=== PATIENT | male | born 1940 | race American Indian/Alaskan Native ===

== ENCOUNTER 2020-05-17 16:08 | Inpatient (IN) | payer MEDICARE ==
[~2020-05-17 16:08] MED LIST: INSULIN REGULAR, HUMAN 100 UNITS/1 ML ONE
--- NOTE | 2020-05-17 16:43 | XRay Report ---
CHEST 1 VIEW 05/17/2020 4:15 PM INDICATION / CLINICAL INFORMATION: ams. COMPARISON: None available. FINDINGS: SUPPORT DEVICES: None. HEART / MEDIASTINUM: No significant abnormality. LUNGS / PLEURA: No significant pulmonary or pleural abnormality. No pneumothorax. ADDITIONAL FINDINGS: No significant additional findings. IMPRESSION: 1. No acute findings. Signer Name: Jone Morin MD Signed: 05/17/2020 4:38 PM Workstation Name: [id number]
[2020-05-17 16:57] LABS: Basophils % (Auto) 0.4 % (0.0-1.8); Eosinophils # (Auto) 0.2 K/mm3 (0.0-0.4); Eosinophils % (Auto) 3.3 % (0.0-4.3); Hematocrit 36.4 % (35.5-45.6); Hemoglobin 12.5 gm/dl (11.8-15.2); Lymphocytes % (Auto) 14.6 % (13.4-35.0); Mean Corpuscular HGB Conc 34 % (32-34); Mean Corpuscular Volume 99 fl (84-94); Monocytes # (Auto) 0.4 K/mm3 (0.0-0.8); Monocytes % (Auto) 6.1 % (0.0-7.3); Platelet Count 117 K/mm3 (140-440); Red Blood Count 3.67 M/mm3 (3.65-5.03); Red Cell Distribution Width 13.3 % (13.2-15.2)
[2020-05-17] MEDS ORDERED: SODIUM POLYSTYRENE 15 GM/60 ML ORAL LIQD PO ONE (18:24)
[2020-05-17] MEDS ORDERED: DEXTROSE 50% IN WATER (25GM) 50 ML SYRINGE IV ONE (18:24)
[2020-05-17] MEDS ORDERED: INSULIN REGULAR, HUMAN 100 UNIT/ML 3ML VIAL IV ONE (18:24)
[2020-05-17] MEDS ORDERED: SODIUM BICARB 8.4% 50 MEQ/50 ML SYRINGE IV ONE (18:24)
--- NOTE | 2020-05-17 18:57 | Emergency Department Report ---
ED Altered Mental Status HPI - General Chief Complaint: Altered Mental Status Stated Complaint: AMS Time Seen by Provider: 05/17/20 16:12 Source: patient, EMS Mode of arrival: Stretcher Limitations: Altered Mental Status - History of Present Illness Initial Comments: Patient is a 80-year-old F Ivorian male with a past medical history of dementia is coming from a correction with altered mental status. Paramedics state that staff states that he 'just was not acting right". They state that the correction staff did not give a depiction of his baseline or with exactly the change in the patient is. Patient is answering questions relatively appropriate. Moving all extremities and he is alert. - Related Data Allergies Allergy/AdvReac Type Severity Reaction Status Date / Time No Known Allergies Allergy Unverified 05/17/20 16:54 ED Review of Systems ROS: Stated complaint: AMS Other details as noted in HPI Comment: All other systems reviewed and negative ED Past Medical Hx - Past Medical History Hx Hypertension: Yes Hx CVA: Yes Hx GERD: Yes Hx Psychiatric Treatment: Yes (mood disorder) Hx Dementia: Yes Additional medical history: glaucoma, malignant neoplasm of colon - Social History Smoking Status: Unknown if ever smoked ED Physical Exam - General Limitations: Altered Mental Status General appearance: alert, in no apparent distress - Head Head exam: Present: atraumatic, normocephalic - Eye Eye exam: Present: normal appearance, PERRL, EOMI - ENT ENT exam: Present: mucous membranes moist - Neck Neck exam: Present: normal inspection - Respiratory Respiratory exam: Present: normal lung sounds bilaterally. Absent: respiratory distress, wheezes, rales, rhonchi - Cardiovascular Cardiovascular Exam: Present: regular rate, normal rhythm, normal heart sounds. Absent: systolic murmur, diastolic murmur, rubs, gallop - GI/Abdominal GI/Abdominal exam: Present: soft, normal bowel sounds. Absent: distended, tenderness, guarding, rebound - Rectal Rectal exam: Present: deferred - Extremities Exam Extremities exam: Present: normal inspection - Back Exam Back exam: Present: normal inspection - Neurological Exam Neurological exam: Present: alert, oriented X3 - Psychiatric Psychiatric exam: Present: normal affect, normal mood - Skin Skin exam: Present: warm, dry, intact, normal color. Absent: rash - Level of Consciousness 1a. Level of Consciousness: alert/keenly responsive - LOC Questions 1b. LOC Questions: answers both correctly - LOC Command 1c. LOC Commands: performs tasks correctly - Best Gaze 2. Best Gaze: normal - Visual 3. Visual: no visual loss - Facial Palsy 4. Facial Palsy: normal symmetrical movement - Motor Arm 5a. Motor Arm Left: no drift 5b. Motor Arm Right: no drift - Motor Leg 6a. Motor Leg Left: no drift 6b. Motor Leg Right: no drift - Limb Ataxia 7. Limb Ataxia: absent - Sensory 8. Sensory: normal - Best Language 9. Best Language: no aphasia - Dysarthria 10. Dysarthria: normal - Extinction and Inattention 11. Extinction/Inattention: no abnormality - Scoring Total Score: 0 Stroke Severity: No Stroke Symptoms ED Course Vital Signs 05/17/20 16:24 Temperature 97.8 F Pulse Rate 48 L Respiratory 18 Rate Blood Pressure 123/26 O2 Sat by Pulse 96 Oximetry - Lab Data Result diagrams: 05/17/20 16:19 05/17/20 17:26 Lab Results 05/17/20 05/17/20 05/17/20 Range/Units 16:19 16:19 17:26 WBC 6.6 (4.5-11.0) K/mm3 RBC 3.67 (3.65-5.03) M/mm3 Hgb 12.5 (11.8-15.2) gm/dl Hct 36.4 (35.5-45.6) % MCV 99 H (84-94) fl MCH 34 H (28-32) pg MCHC 34 (32-34) % RDW 13.3 (13.2-15.2) % Plt Count 117 L (140-440) K/mm3 Lymph % (Auto) 14.6 (13.4-35.0) % [place] % (Auto) 6.1 (0.0-7.3) % Eos % (Auto) 3.3 (0.0-4.3) % Baso % (Auto) 0.4 (0.0-1.8) % Lymph # (Auto) 1.0 L (1.2-5.4) K/mm3 [place] # (Auto) 0.4 (0.0-0.8) K/mm3 Eos # (Auto) 0.2 (0.0-0.4) K/mm3 Baso # (Auto) 0.0 (0.0-0.1) K/mm3 Seg Neutrophils % 75.6 H (40.0-70.0) % Seg Neutrophils # 5.0 (1.8-7.7) K/mm3 Sodium 141 (137-145) mmol/L Potassium 5.6 H 5.9 H (3.6-5.0) mmol/L Chloride 108.6 H (98-107) mmol/L Carbon Dioxide 22 (22-30) mmol/L Anion Gap 16 mmol/L BUN 30 H (9-20) mg/dL Creatinine 1.6 H (0.8-1.3) mg/dL Estimated GFR 51 ml/min BUN/Creatinine Ratio 19 % Glucose 85 (75-100) mg/dL Calcium 9.0 (8.4-10.2) mg/dL - Medical Decision Making Patient was noted to have hyperkalemia. This was treated. Does have some renal insufficiency present. Unknown what the patient's renal function baseline is. Patient will be admitted for observation. Critical care attestation.: If time is entered above; I have spent that time in minutes in the direct care of this critically ill patient, excluding procedure time. ED Disposition Clinical Impression: Hyperkalemia, Acute renal injury, Altered mental state Disposition: 09 OP ADMIT IP TO THIS HOSP Is pt being admited?: Yes Does the pt Need Aspirin: No Condition: Stable Time of Disposition: 18:56
[2020-05-17] MEDS ORDERED: MORPHINE 2 MG/1 ML INJ IV PRN (22:34)
[2020-05-17] MEDS ORDERED: ONDANSETRON 4 MG/2 ML INJ IV PRN (22:34)
[2020-05-17] MEDS ORDERED: ACETAMINOPHEN 325 MG TAB PO PRN (22:34)
[2020-05-17] MEDS ORDERED: METOCLOPRAMIDE 10 MG/2 ML INJ IV PRN ×2 (22:34→22:45)
[2020-05-17] MEDS ORDERED: CALCIUM GLUCONATE 2,000 MG in SODIUM CHLORIDE 0.9% 100 ML IV ONE (22:43)
--- NOTE | 2020-05-17 22:45 | History and Physical Report ---
History of Present Illness Date of examination: 05/17/20 Date of admission: 05/17/20 18:57 Chief complaint: Altered sensorium since a.m. History of present illness: 50-year-old male sent from [facility] for altered mental status. Patient had no fever at the time of admission. Patient is normally alert and oriented. Now confused. No shortness of breath present. Had a recent stroke - Past Medical History --Hypertension: Yes --CVA: Yes --GERD: Yes --Psychiatric Treatment: Yes (mood disorder) --Dementia: Yes Additional medical history: glaucoma, malignant neoplasm of colon - Social History Smoking Status: Unknown if ever smoked surgical history unavailable family history Htn Review of Systems ROS: Constitutional altered sensorium and fever HEENT no sore throat no post nasal drip no diplopia Neck no neck stiffness no lymph gland enlargement Chest and lungs no shortness of breath cough or wheezing CVS no chest pain no diaphoresis no palpitations GI no nausea no vomiting no diarrhea Genitourinary system no dysuria no flank pain Musculoskeletal system no muscle pains no joint pains BRICK HANDLER no syncope no seizures Skin no rash no itching Psychiatric no depression no homicidal or suicidal tendencies Hematologic no lymphedema or bruising Endocrine no polydipsia no polyuria no cold intolerance no heat intolerance Medications and Allergies Allergies Allergy/AdvReac Type Severity Reaction Status Date / Time No Known Allergies Allergy Verified 05/17/20 22:43 Exam - Constitutional Vitals: Temp Pulse Resp BP Pulse Ox 97.8 F 48 L 18 123/26 96 05/17/20 16:24 05/17/20 16:24 05/17/20 16:24 05/17/20 16:24 05/17/20 16:24 General appearance: Present: mild distress, well-nourished - EENT Eyes: Present: PERRL ENT: hearing intact, clear oral mucosa - Neck Neck: Present: supple, normal ROM - Respiratory Respiratory effort: normal Respiratory: bilateral: CTA - Cardiovascular Heart rate: 78 Rhythm: regular Heart Sounds: Present: S1 & S2. Absent: rub, click - Extremities Extremities: no ischemia, pulses intact, pulses symmetrical, No edema Peripheral Pulses: within normal limits - Abdominal General gastrointestinal: Present: soft, non-tender, non-distended, normal bowel sounds Male genitourinary: Present: normal - Integumentary Integumentary: Present: clear, warm, dry - Musculoskeletal Musculoskeletal: gait normal, strength equal bilaterally - Psychiatric Psychiatric: cooperative, other (Altered sensorium) - Neurologic Neurologic: CNII-XII intact, moves all extremities - Allied Health Allied health notes reviewed: nursing, case management Results - Labs CBC & Chem 7: 05/18/20 04:56 05/18/20 04:00 Labs: Laboratory Last Values WBC 6.6 K/mm3 (4.5-11.0) 05/17/20 16:19 RBC 3.67 M/mm3 (3.65-5.03) 05/17/20 16:19 Hgb 12.5 gm/dl (11.8-15.2) 05/17/20 16:19 Hct 36.4 % (35.5-45.6) 05/17/20 16:19 MCV 99 fl (84-94) H 05/17/20 16:19 MCH 34 pg (28-32) H 05/17/20 16:19 MCHC 34 % (32-34) 05/17/20 16:19 RDW 13.3 % (13.2-15.2) 05/17/20 16:19 Plt Count 117 K/mm3 (140-440) L 05/17/20 16:19 Lymph % (Auto) 14.6 % (13.4-35.0) 05/17/20 16:19 [place] % (Auto) 6.1 % (0.0-7.3) 05/17/20 16:19 Eos % (Auto) 3.3 % (0.0-4.3) 05/17/20 16:19 Baso % (Auto) 0.4 % (0.0-1.8) 05/17/20 16:19 Lymph # (Auto) 1.0 K/mm3 (1.2-5.4) L 05/17/20 16:19 [place] # (Auto) 0.4 K/mm3 (0.0-0.8) 05/17/20 16:19 Eos # (Auto) 0.2 K/mm3 (0.0-0.4) 05/17/20 16:19 Baso # (Auto) 0.0 K/mm3 (0.0-0.1) 05/17/20 16:19 Seg Neutrophils % 75.6 % (40.0-70.0) H 05/17/20 16:19 Seg Neutrophils # 5.0 K/mm3 (1.8-7.7) 05/17/20 16:19 Sodium 141 mmol/L (137-145) 05/17/20 16:19 Potassium 5.9 mmol/L (3.6-5.0) H 05/17/20 17:26 Chloride 108.6 mmol/L (98-107) H 05/17/20 16:19 Carbon Dioxide 22 mmol/L (22-30) 05/17/20 16:19 Anion Gap 16 mmol/L 05/17/20 16:19 BUN 30 mg/dL (9-20) H 05/17/20 16:19 Creatinine 1.6 mg/dL (0.8-1.3) H 05/17/20 16:19 Estimated GFR 51 ml/min 05/17/20 16:19 BUN/Creatinine Ratio 19 % 05/17/20 16:19 Glucose 85 mg/dL (75-100) 05/17/20 16:19 Calcium 9.0 mg/dL (8.4-10.2) 05/17/20 16:19 Short CBC 05/17/20 05/18/20 Range/Units 16:19 04:56 WBC 6.6 5.6 (4.5-11.0) K/mm3 Hgb 12.5 11.9 (11.8-15.2) gm/dl Hct 36.4 34.3 L (35.5-45.6) % Plt Count 117 L 104 L (140-440) K/mm3 BMP 05/17/20 05/17/20 05/18/20 16:19 17:26 04:00 Sodium 141 144 Potassium 5.6 H 5.9 H 4.9 Chloride 108.6 H 112.0 H Carbon Dioxide 22 21 L BUN 30 H 28 H Creatinine 1.6 H 1.2 Glucose 85 79 Calcium 9.0 9.4 Liver Function 05/18/20 Range/Units 04:00 Total Bilirubin 0.60 (0.1-1.2) mg/dL AST 36 (5-40) units/L ALT 23 (7-56) units/L Alkaline Phosphatase 98 (35-129) units/L Albumin 3.8 L (3.9-5) g/dL Assessment and Plan Advance Directives: Yes (Full code) VTE prophylaxis?: Chemical Plan of care discussed with patient/family: Yes - Patient Problems (1) Acute encephalopathy Current Visit: Yes Status: Acute Plan to address problem: Etiology unclear IV ceftriaxone empirically IV fluids (2) Hyperkalemia Current Visit: Yes Status: Acute Plan to address problem: Hyperkalemia treated with Kayexalate calcium gluconate sodium bicarbonate and insulin with D50 W Recheck potassium level (3) YANET (acute kidney injury) Current Visit: Yes Status: Acute Plan to address problem: Creatinine of 1.6 IV fluids for now (4) DVT prophylaxis Current Visit: Yes Status: Acute (5) Debility, unspecified Current Visit: Yes Status: Acute Plan to address problem: PT/OT (6) DVT prophylaxis Current Visit: Yes Status: Acute Plan to address problem: On heparin GI prophylaxis
[2020-05-17] MEDS ORDERED: D5W/0.9% NACL 1,000 ML IV SCH (23:00)
[2020-05-17] MEDS ORDERED: FAMOTIDINE 20 MG TAB PO SCH (23:00)
[2020-05-18] MEDS: FAMOTIDINE 10 MG TAB PO SCH ×3 (02:22→21:14)
[2020-05-18 05:59] LABS: Basophils % (Auto) 0.4 % (0.0-1.8); Eosinophils # (Auto) 0.2 K/mm3 (0.0-0.4); Eosinophils % (Auto) 3.2 % (0.0-4.3); Hematocrit 34.3 % (35.5-45.6); Hemoglobin 11.9 gm/dl (11.8-15.2); Lymphocytes # (Auto) 1.2 K/mm3 (1.2-5.4); Lymphocytes % (Auto) 20.8 % (13.4-35.0); Mean Corpuscular HGB Conc 35 % (32-34); Mean Corpuscular Volume 98 fl (84-94); Monocytes # (Auto) 0.4 K/mm3 (0.0-0.8); Monocytes % (Auto) 7.9 % (0.0-7.3); Platelet Count 104 K/mm3 (140-440); Red Blood Count 3.49 M/mm3 (3.65-5.03)
[2020-05-18 06:26] LABS: Alanine Aminotransferase 23 units/L (7-56); Albumin 3.8 g/dL (3.9-5); BUN/Creatinine Ratio 23; Blood Urea Nitrogen 28 mg/dL (9-20); Calcium 9.4 mg/dL (8.4-10.2); Hemolysis Index 8
[2020-05-18] MEDS: cefTRIAXone/NS 2 GM/100 ML 2 GM/100 ML BAG IV SCH (08:11)
[2020-05-18] MEDS: D5W/0.45% NACL 1,000 ML IV SCH (09:09)
--- NOTE | 2020-05-18 11:36 | Progress Note ---
Assessment and Plan Assessment and plan: Patient Problems (1) Acute encephalopathy Current Visit: Yes Status: Acute Plan to address problem: Etiology unclear IV ceftriaxone empirically IV fluids Check CT head COVID-19 (2) Hyperkalemia Current Visit: Yes Status: Acute Plan to address problem: Hyperkalemia treated with Kayexalate calcium gluconate sodium bicarbonate and insulin with D50 W Recheck potassium level (3) YANET (acute kidney injury) Current Visit: Yes Status: Acute Plan to address problem: Creatinine of 1.6 IV fluids for now (4) DVT prophylaxis Current Visit: Yes Status: Acute (5) Debility, unspecified Current Visit: Yes Status: Acute Plan to address problem: PT/OT (6) DVT prophylaxis Current Visit: Yes Status: Acute Plan to address problem: On heparin GI prophylaxis History Interval history: Patient seen and examined at bedside this morning Patient is confused Baseline is unknown. Suspect underlying dementia Patient is on antibiotics for UTI. Hospitalist Physical - Physical exam Narrative exam: VITAL SIGNS: Reviewed. GENERAL: Awake but confused HEAD: No signs of head trauma. EYES: Pupils are equal. Extraocular motions intact. EARS: Hearing grossly intact. MOUTH: Oropharynx is normal. NECK: No adenopathy, no JVD. CHEST: Chest with diminished breath sounds bilaterally. No wheezes, rales, or rhonchi. CARDIAC: Regular rate and rhythm. S1 and S2, without murmurs, gallops, or rubs. VASCULAR: No Edema. Peripheral pulses normal and equal in all extremities. ABDOMEN: Soft, non tender and non distended. No rebound or guarding, and no masses palpated. Bowel Sounds normal. MUSCULOSKELETAL: Good range of motion of all major joints. Extremities without clubbing, cyanosis or edema. NEUROLOGIC EXAM: Alert and oriented x1 PSYCHIATRIC: Stable mood SKIN: No obvious lesions - Constitutional Vitals: Temp Pulse Resp BP Pulse Ox 98.5 F 83 18 130/59 99 05/18/20 00:53 05/18/20 01:22 05/18/20 00:53 05/18/20 01:22 05/18/20 00:53 Results - Labs CBC & Chem 7: 05/18/20 04:56 05/18/20 04:00 Labs: Laboratory Last Values WBC 5.6 K/mm3 (4.5-11.0) 05/18/20 04:56 RBC 3.49 M/mm3 (3.65-5.03) L 05/18/20 04:56 Hgb 11.9 gm/dl (11.8-15.2) 05/18/20 04:56 Hct 34.3 % (35.5-45.6) L 05/18/20 04:56 MCV 98 fl (84-94) H 05/18/20 04:56 MCH 34 pg (28-32) H 05/18/20 04:56 MCHC 35 % (32-34) H 05/18/20 04:56 RDW 13.0 % (13.2-15.2) L 05/18/20 04:56 Plt Count 104 K/mm3 (140-440) L 05/18/20 04:56 Lymph % (Auto) 20.8 % (13.4-35.0) 05/18/20 04:56 [place] % (Auto) 7.9 % (0.0-7.3) H 05/18/20 04:56 Eos % (Auto) 3.2 % (0.0-4.3) 05/18/20 04:56 Baso % (Auto) 0.4 % (0.0-1.8) 05/18/20 04:56 Lymph # (Auto) 1.2 K/mm3 (1.2-5.4) 05/18/20 04:56 [place] # (Auto) 0.4 K/mm3 (0.0-0.8) 05/18/20 04:56 Eos # (Auto) 0.2 K/mm3 (0.0-0.4) 05/18/20 04:56 Baso # (Auto) 0.0 K/mm3 (0.0-0.1) 05/18/20 04:56 Seg Neutrophils % 67.7 % (40.0-70.0) 05/18/20 04:56 Seg Neutrophils # 3.8 K/mm3 (1.8-7.7) 05/18/20 04:56 Sodium 144 mmol/L (137-145) 05/18/20 04:00 Potassium 4.9 mmol/L (3.6-5.0) 05/18/20 04:00 Chloride 112.0 mmol/L (98-107) H 05/18/20 04:00 Carbon Dioxide 21 mmol/L (22-30) L 05/18/20 04:00 Anion Gap 16 mmol/L 05/18/20 04:00 BUN 28 mg/dL (9-20) H 05/18/20 04:00 Creatinine 1.2 mg/dL (0.8-1.3) 05/18/20 04:00 Estimated GFR > 60 ml/min 05/18/20 04:00 BUN/Creatinine Ratio 23 % 05/18/20 04:00 Glucose 79 mg/dL (75-100) 05/18/20 04:00 Hemoglobin A1c 4.6 % (4-6) 05/17/20 16:19 Calcium 9.4 mg/dL (8.4-10.2) 05/18/20 04:00 Total Bilirubin 0.60 mg/dL (0.1-1.2) 05/18/20 04:00 AST 36 units/L (5-40) 05/18/20 04:00 ALT 23 units/L (7-56) 05/18/20 04:00 Alkaline Phosphatase 98 units/L (35-129) 05/18/20 04:00 Total Protein 6.5 g/dL (6.3-8.2) 05/18/20 04:00 Albumin 3.8 g/dL (3.9-5) L 05/18/20 04:00 Albumin/Globulin Ratio 1.4 % 05/18/20 04:00 Procalcitonin < 0.05 ng/mL (<0.15) 05/18/20 08:00 Patel/IV: Voiding Method Toilet IV Catheter Type [Right INT / Saline Lock Forearm] Active Medications - Current Medications Current Medications: Generic Name Dose Route Start Last Admin Trade Name Freq PRN Reason Stop Dose Admin Acetaminophen 650 mg 05/17/20 22:34 Tylenol PO Q4H PRN Pain MILD(1-3)/Fever >100.5/MONTALVO Famotidine 10 mg 05/17/20 23:00 05/18/20 09:08 Pepcid PO 10 mg BID WYATT Administration Dextrose/Sodium Chloride 1,000 mls @ 125 mls/hr 05/18/20 07:35 05/18/20 09:09 D5/0.45ns IV 125 mls/hr DIRECT WYATT Administration Ceftriaxone Sodium 2 gm in 100 mls @ 200 mls/hr 05/18/20 08:00 05/18/20 08:11 Rocephin/Ns 2 Gm/100 Ml IV 200 mls/hr Q24HR WYATT Administration Protocol Metoclopramide HCl 5 mg 05/17/20 22:45 Reglan IV Q6H PRN Nausea And Vomiting Morphine Sulfate 2 mg 05/17/20 22:34 Morphine IV Q4H PRN Pain, Moderate (4-6) Ondansetron HCl 4 mg 05/17/20 22:34 Zofran IV Q8H PRN Nausea And Vomiting Sodium Chloride 10 ml 05/18/20 10:00 05/18/20 09:09 Sodium Chloride Flush Syringe 10 Ml IV 10 ml BID WYATT Administration Sodium Chloride 10 ml 05/17/20 22:34 Sodium Chloride Flush Syringe 10 Ml IV PRN PRN LINE FLUSH
[2020-05-18 13:33] LABS: Bilirubin,Urine NEG (Negative); Blood,Urine NEG (Negative); Color,Urine Yellow (Yellow); Mucus,Urine FEW /HPF; Protein,Urine <15 mg/dL mg/dL (Negative); RBC,Urine < 1.0 /HPF (0.0-6.0); Urobilinogen,Urine < 2.0 mg/dL (<2.0)
--- NOTE | 2020-05-18 14:13 | Cat Scan Report ---
CT HEAD WITHOUT CONTRAST INDICATION / CLINICAL INFORMATION: Altered mental status. TECHNIQUE: All CT scans at this location are performed using CT dose reduction for ALARA by means of automated e xposure control. COMPARISON: None available. FINDINGS: HEMORRHAGE: No evidence of intracranial hemorrhage or extra-axial fluid collection. EXTRA-AXIAL SPACES: Cortical sulci and sylvian fissures are enlarged reflecting a degree of parenchym al volume loss which is within normal limits for the patient's age of 80 years. Basilar cisterns have an unremarkable appearance. VENTRICULAR SYSTEM: The third and lateral ventricles are enlarged reflecting presence of age related parenchymal volume loss. CEREBRAL PARENCHYMA: Periventricular and deep white matter lucency is observed. This is probably seco ndary to microvascular ischemic change. There is no indication of recent infarction. No areas of ence phalomalacia are identified. MIDLINE SHIFT OR HERNIATION: There is no mass effect. CEREBELLUM / BRAINSTEM: Brainstem has an unremarkable appearance. Age related cerebellar atrophy is n oted. MIDLINE STRUCTURES:Pituitary gland has an unremarkable appearance. No abnormalities are seen in the p ineal region. INTRACRANIAL VESSELS:Calcified atherosclerotic plaque is present along the course of the cavernous se gments of both internal carotid arteries. Similar findings are seen at the distal vertebral arteries. ORBITS: visualized portions of the orbits have an unremarkable appearance. SOFT TISSUES of HEAD: Soft tissue swelling is seen over the right forehead. This could represent a sc alp hematoma. Is there history of head injury CALVARIUM: Evaluation of bone windows reveals no abnormalities. PARANASAL SINUSES / MASTOID AIR CELLS: There is opacification of the right frontal sinus. Mucosal dis ease is present within the left sphenoid sinus and within several ethmoid air cells bilaterally. Mast oid air cells and middle ear cavities are normally pneumatized. IMPRESSION: 1. Age-related parenchymal atrophy and microvascular ischemic change. 2. Inflammatory changes in the paranasal sinuses as noted above. Signer Name: Kevin Sanders MD Signed: 05/18/2020 2:09 PM Workstation Name: Isabella Oliver
[2020-05-19] MEDS: D5W/0.45% NACL 1,000 ML IV SCH ×3 (05:04→22:07)
[2020-05-19] MEDS: cefTRIAXone/NS 2 GM/100 ML 2 GM/100 ML BAG IV SCH (10:57)
[2020-05-19] MEDS: FAMOTIDINE 10 MG TAB PO SCH ×2 (10:57→21:55)
[2020-05-19 13:01] LABS: Basophils % (Auto) 0.6 % (0.0-1.8); Eosinophils # (Auto) 0.1 K/mm3 (0.0-0.4); Eosinophils % (Auto) 2.5 % (0.0-4.3); Hemoglobin 11.5 gm/dl (11.8-15.2); Lymphocytes % (Auto) 18.9 % (13.4-35.0); Mean Corpuscular HGB Conc 34 % (32-34); Mean Corpuscular Volume 100 fl (84-94); Monocytes # (Auto) 0.5 K/mm3 (0.0-0.8); Monocytes % (Auto) 9.1 % (0.0-7.3); Platelet Count 100 K/mm3 (140-440); Red Blood Count 3.39 M/mm3 (3.65-5.03); Red Cell Distribution Width 12.8 % (13.2-15.2)
--- NOTE | 2020-05-19 13:03 | Progress Note ---
Assessment and Plan Assessment and plan: Patient Problems (1) Acute encephalopathy Current Visit: Yes Status: Acute Plan to address problem: Etiology unclear IV ceftriaxone empirically IV fluids CT head - negative COVID-19 - negative (2) Hyperkalemia Current Visit: Yes Status: Acute Plan to address problem: Resolved (3) YANET (acute kidney injury) Current Visit: Yes Status: Acute Plan to address problem: Improved (4) Debility, unspecified Current Visit: Yes Status: Acute Plan to address problem: PT/OT (5) DVT prophylaxis Current Visit: Yes Status: Acute Plan to address problem: On heparin GI prophylaxis History Interval history: Patient seen and examined at bedside this morning He has dementia and his baseline is not known Patient is on antibiotics for UTI. Hospitalist Physical - Physical exam Narrative exam: VITAL SIGNS: Reviewed. GENERAL: Awake HEAD: No signs of head trauma. EYES: Pupils are equal. Extraocular motions intact. EARS: Hearing grossly intact. MOUTH: Oropharynx is normal. NECK: No adenopathy, no JVD. CHEST: Chest with diminished breath sounds bilaterally. No wheezes, rales, or rhonchi. CARDIAC: Regular rate and rhythm. S1 and S2, without murmurs, gallops, or rubs. VASCULAR: No Edema. Peripheral pulses normal and equal in all extremities. ABDOMEN: Soft, non tender and non distended. No rebound or guarding, and no masses palpated. Bowel Sounds normal. MUSCULOSKELETAL: Good range of motion of all major joints. Extremities without clubbing, cyanosis or edema. NEUROLOGIC EXAM: Alert and oriented x1 PSYCHIATRIC: Stable mood SKIN: No obvious lesions - Constitutional Vitals: Temp Pulse Resp BP Pulse Ox 98.6 F 65 16 125/46 98 05/19/20 05:38 05/19/20 05:38 05/19/20 05:38 05/19/20 05:38 05/19/20 05:38 Results - Labs CBC & Chem 7: 05/18/20 04:56 05/18/20 04:00 Labs: Laboratory Last Values WBC 5.6 K/mm3 (4.5-11.0) 05/18/20 04:56 RBC 3.49 M/mm3 (3.65-5.03) L 05/18/20 04:56 Hgb 11.9 gm/dl (11.8-15.2) 05/18/20 04:56 Hct 34.3 % (35.5-45.6) L 05/18/20 04:56 MCV 98 fl (84-94) H 05/18/20 04:56 MCH 34 pg (28-32) H 05/18/20 04:56 MCHC 35 % (32-34) H 05/18/20 04:56 RDW 13.0 % (13.2-15.2) L 05/18/20 04:56 Plt Count 104 K/mm3 (140-440) L 05/18/20 04:56 Lymph % (Auto) 20.8 % (13.4-35.0) 05/18/20 04:56 [place] % (Auto) 7.9 % (0.0-7.3) H 05/18/20 04:56 Eos % (Auto) 3.2 % (0.0-4.3) 05/18/20 04:56 Baso % (Auto) 0.4 % (0.0-1.8) 05/18/20 04:56 Lymph # (Auto) 1.2 K/mm3 (1.2-5.4) 05/18/20 04:56 [place] # (Auto) 0.4 K/mm3 (0.0-0.8) 05/18/20 04:56 Eos # (Auto) 0.2 K/mm3 (0.0-0.4) 05/18/20 04:56 Baso # (Auto) 0.0 K/mm3 (0.0-0.1) 05/18/20 04:56 Seg Neutrophils % 67.7 % (40.0-70.0) 05/18/20 04:56 Seg Neutrophils # 3.8 K/mm3 (1.8-7.7) 05/18/20 04:56 Sodium 144 mmol/L (137-145) 05/18/20 04:00 Potassium 4.9 mmol/L (3.6-5.0) 05/18/20 04:00 Chloride 112.0 mmol/L (98-107) H 05/18/20 04:00 Carbon Dioxide 21 mmol/L (22-30) L 05/18/20 04:00 Anion Gap 16 mmol/L 05/18/20 04:00 BUN 28 mg/dL (9-20) H 05/18/20 04:00 Creatinine 1.2 mg/dL (0.8-1.3) 05/18/20 04:00 Estimated GFR > 60 ml/min 05/18/20 04:00 BUN/Creatinine Ratio 23 % 05/18/20 04:00 Glucose 79 mg/dL (75-100) 05/18/20 04:00 Hemoglobin A1c 4.6 % (4-6) 05/17/20 16:19 Calcium 9.4 mg/dL (8.4-10.2) 05/18/20 04:00 Total Bilirubin 0.60 mg/dL (0.1-1.2) 05/18/20 04:00 AST 36 units/L (5-40) 05/18/20 04:00 ALT 23 units/L (7-56) 05/18/20 04:00 Alkaline Phosphatase 98 units/L (35-129) 05/18/20 04:00 Total Protein 6.5 g/dL (6.3-8.2) 05/18/20 04:00 Albumin 3.8 g/dL (3.9-5) L 05/18/20 04:00 Albumin/Globulin Ratio 1.4 % 05/18/20 04:00 Procalcitonin < 0.05 ng/mL (<0.15) 05/18/20 08:00 Urine Color Yellow (Yellow) 05/18/20 Unknown Urine Turbidity Clear (Clear) 05/18/20 Unknown Urine pH 5.0 (5.0-7.0) 05/18/20 Unknown Ur Specific [place] 1.014 (1.003-1.030) 05/18/20 Unknown Urine Protein <15 mg/dl mg/dL (Negative) 05/18/20 Unknown Urine Glucose (UA) Neg mg/dL (Negative) 05/18/20 Unknown Urine Ketones Neg mg/dL (Negative) 05/18/20 Unknown Urine Blood Neg (Negative) 05/18/20 Unknown Urine Nitrite Neg (Negative) 05/18/20 Unknown Urine Bilirubin Neg (Negative) 05/18/20 Unknown Urine Urobilinogen < 2.0 mg/dL (<2.0) 05/18/20 Unknown Ur Leukocyte Esterase Neg (Negative) 05/18/20 Unknown Urine WBC (Auto) 1.0 /HPF (0.0-6.0) 05/18/20 Unknown Urine RBC (Auto) < 1.0 /HPF (0.0-6.0) 05/18/20 Unknown U Epithel Cells (Auto) < 1.0 /HPF (0-13.0) 05/18/20 Unknown Urine Mucus Few /HPF 05/18/20 Unknown Coronavirus (PCR) Negative (Negative) 05/18/20 11:00 Patel/IV: Voiding Method Toilet IV Catheter Type [Left Forearm Peripheral IV ] IV Catheter Type [Right Wrist] Peripheral IV IV Catheter Type [Right INT / Saline Lock Forearm] Active Medications - Current Medications Current Medications: Generic Name Dose Route Start Last Admin Trade Name Freq PRN Reason Stop Dose Admin Acetaminophen 650 mg 05/17/20 22:34 Tylenol PO Q4H PRN Pain MILD(1-3)/Fever >100.5/MONTALVO Famotidine 10 mg 05/17/20 23:00 05/19/20 10:57 Pepcid PO 10 mg BID WYATT Administration Dextrose/Sodium Chloride 1,000 mls @ 125 mls/hr 05/18/20 07:35 05/19/20 05:04 D5/0.45ns IV 125 mls/hr DIRECT WYATT Administration Ceftriaxone Sodium 2 gm in 100 mls @ 200 mls/hr 05/18/20 08:00 05/19/20 10:57 Rocephin/Ns 2 Gm/100 Ml IV 200 mls/hr Q24HR WYATT Administration Protocol Metoclopramide HCl 5 mg 05/17/20 22:45 Reglan IV Q6H PRN Nausea And Vomiting Morphine Sulfate 2 mg 05/17/20 22:34 Morphine IV Q4H PRN Pain, Moderate (4-6) Ondansetron HCl 4 mg 05/17/20 22:34 Zofran IV Q8H PRN Nausea And Vomiting Sodium Chloride 10 ml 05/18/20 10:00 05/19/20 10:57 Sodium Chloride Flush Syringe 10 Ml IV 10 ml BID WYATT Administration Sodium Chloride 10 ml 05/17/20 22:34 Sodium Chloride Flush Syringe 10 Ml IV PRN PRN LINE FLUSH
[2020-05-19 13:32] LABS: Alanine Aminotransferase 22 units/L (7-56); Albumin 3.6 g/dL (3.9-5); BUN/Creatinine Ratio 14; Blood Urea Nitrogen 14 mg/dL (9-20); Calcium 8.9 mg/dL (8.4-10.2); Hemolysis Index 17
[2020-05-19] MEDS: busPIRone 10 MG TAB PO SCH (21:53)
[2020-05-19] MEDS: DONEPEZIL 10 MG TAB PO SCH (21:54)
[2020-05-19] MEDS: METOPROLOL TARTRATE 25 MG TAB PO SCH (21:54)
[2020-05-20 05:45] LABS: Basophils % (Auto) 0.3 % (0.0-1.8); Eosinophils # (Auto) 0.2 K/mm3 (0.0-0.4); Eosinophils % (Auto) 2.5 % (0.0-4.3); Hematocrit 34.7 % (35.5-45.6); Hemoglobin 11.7 gm/dl (11.8-15.2); Lymphocytes # (Auto) 1.2 K/mm3 (1.2-5.4); Lymphocytes % (Auto) 19.9 % (13.4-35.0); Mean Corpuscular HGB Conc 34 % (32-34); Mean Corpuscular Volume 100 fl (84-94); Monocytes # (Auto) 0.7 K/mm3 (0.0-0.8); Monocytes % (Auto) 10.5 % (0.0-7.3); Platelet Count 103 K/mm3 (140-440); Red Blood Count 3.46 M/mm3 (3.65-5.03); Red Cell Distribution Width 12.9 % (13.2-15.2)
[2020-05-20 06:02] LABS: Alanine Aminotransferase 26 units/L (7-56); Albumin 3.6 g/dL (3.9-5); BUN/Creatinine Ratio 9; Blood Urea Nitrogen 9 mg/dL (9-20); Hemolysis Index 59
[2020-05-20] MEDS: D5W/0.45% NACL 1,000 ML IV SCH ×3 (08:10→23:52)
[2020-05-20] MEDS: CITALOPRAM 10 MG TAB PO SCH (09:18)
[2020-05-20] MEDS: METOPROLOL TARTRATE 25 MG TAB PO SCH ×2 (09:18→21:07)
[2020-05-20] MEDS: cefTRIAXone/NS 2 GM/100 ML 2 GM/100 ML BAG IV SCH (09:18)
[2020-05-20] MEDS: FAMOTIDINE 10 MG TAB PO SCH ×2 (09:19→21:08)
[2020-05-20] MEDS: ASPIRIN EC 81 MG TAB PO SCH (09:19)
[2020-05-20] MEDS: busPIRone 10 MG TAB PO SCH ×2 (09:19→21:07)
--- NOTE | 2020-05-20 11:19 | Progress Note ---
Assessment and Plan Assessment and plan: 80-year-old male with a medical history of dementia admitted with altered mental status. As per admission notes, patient was noted to be acting differently compared with baseline while in the [facility]. No reported fever or flulike illness. Due to concern for possible infection, patient was brought to the hospital for further evaluation Here in the ER, patient was started on IV antibiotic for possible UTI. CT head negative 05/19. Patient is still on IV antibiotics. He is alert and oriented x1. He is able to say time by looking at the clock however. Discussed case with patient's RN at the [facility], who states that patient usually is able to have a normal conversation and is alert and oriented x2. Medication reviewed showed patient is not on any narcotics while in the [facility]. He has not had any temperature spike here. COVID-19 test performed was negative during this ad mission. His vital signs remained stable. Try to speak with brother on the phone but could not get him so I left a voice message. Still awaiting callback. 05/20. Patient has slight spike in temperature more than 100.1 Fahrenheit. Urinalysis showed no organisms. Procalcitonin was also negative. At this time I do not suspect a bacterial infection. Need to rule out viral illness at this time. Patient needs an LP-ordered LP and CSF analysis. Neurology to review as patient will need an MRI of the brain. His TSH, folate and vitamin B12 levels are all within normal limits. Patient Problems (1) Acute metabolic encephalopathy Current Visit: Yes Status: Acute Plan to address problem: CT head - negative COVID-19 - negative Need to rule out encephalitis. LP ordered. CSF analysis will be sent. Neurology consulted. Needs to have an MRI of the brain (2) Hyperkalemia Current Visit: Yes Status: Acute Plan to address problem: Resolved (3) YANET (acute kidney injury) Current Visit: Yes Status: Acute Plan to address problem: Improved (4) Debility, unspecified Current Visit: Yes Status: Acute Plan to address problem: PT/OT pending (5) Dementia with behavioral disturbance Current Visit: Yes Status: Acute Plan to address problem: Started on low-dose Zyprexa Psychiatry to see (5) DVT prophylaxis Current Visit: Yes Status: Acute Plan to address problem: On heparin GI prophylaxis History Interval history: Patient seen and examined at bedside this morning He has dementia. Spoke with RN at the nursing facility who states that patient usually alert and oriented x2 and is able to take a shower and have quite a normal conversation. He occasionally tells time when he looks at the clock. He has no complaints today but he is still confused. Temperature spike noted He is on IV antibiotics and urine culture is negative. Procalcitonin was also negative. At this time, will discontinue IV antibiotics Patient scheduled for LP to rule out any underlying viral illness/encephalitis. COVID-19 test already negative Hospitalist Physical - Physical exam Narrative exam: VITAL SIGNS: Reviewed. GENERAL: Awake HEAD: No signs of head trauma. EYES: Pupils are equal. Extraocular motions intact. EARS: Hearing grossly intact. MOUTH: Oropharynx is normal. NECK: No adenopathy, no JVD. CHEST: Chest with diminished breath sounds bilaterally. No wheezes, rales, or rhonchi. CARDIAC: Regular rate and rhythm. S1 and S2, without murmurs, gallops, or rubs. VASCULAR: No Edema. Peripheral pulses normal and equal in all extremities. ABDOMEN: Soft, non tender and non distended. No rebound or guarding, and no masses palpated. Bowel Sounds normal. MUSCULOSKELETAL: Good range of motion of all major joints. Extremities without clubbing, cyanosis or edema. NEUROLOGIC EXAM: Alert and oriented x1. Has slight confusion PSYCHIATRIC: Stable mood SKIN: No obvious lesions - Constitutional Vitals: Temp Pulse Resp BP Pulse Ox 100.1 F H 95 H 20 134/68 98 05/20/20 03:56 05/20/20 03:56 05/20/20 03:56 05/20/20 03:56 05/20/20 03:56 Results - Labs CBC & Chem 7: 05/20/20 03:38 05/20/20 03:38 Labs: Laboratory Last Values WBC 6.3 K/mm3 (4.5-11.0) 05/20/20 03:38 RBC 3.46 M/mm3 (3.65-5.03) L 05/20/20 03:38 Hgb 11.7 gm/dl (11.8-15.2) L 05/20/20 03:38 Hct 34.7 % (35.5-45.6) L 05/20/20 03:38 MCV 100 fl (84-94) H 05/20/20 03:38 MCH 34 pg (28-32) H 05/20/20 03:38 MCHC 34 % (32-34) 05/20/20 03:38 RDW 12.9 % (13.2-15.2) L 05/20/20 03:38 Plt Count 103 K/mm3 (140-440) L 05/20/20 03:38 Lymph % (Auto) 19.9 % (13.4-35.0) 05/20/20 03:38 [place] % (Auto) 10.5 % (0.0-7.3) H 05/20/20 03:38 Eos % (Auto) 2.5 % (0.0-4.3) 05/20/20 03:38 Baso % (Auto) 0.3 % (0.0-1.8) 05/20/20 03:38 Lymph # (Auto) 1.2 K/mm3 (1.2-5.4) 05/20/20 03:38 [place] # (Auto) 0.7 K/mm3 (0.0-0.8) 05/20/20 03:38 Eos # (Auto) 0.2 K/mm3 (0.0-0.4) 05/20/20 03:38 Baso # (Auto) 0.0 K/mm3 (0.0-0.1) 05/20/20 03:38 Seg Neutrophils % 66.8 % (40.0-70.0) 05/20/20 03:38 Seg Neutrophils # 4.2 K/mm3 (1.8-7.7) 05/20/20 03:38 Sodium 144 mmol/L (137-145) 05/20/20 03:38 Potassium 4.6 mmol/L (3.6-5.0) 05/20/20 03:38 Chloride 109.2 mmol/L (98-107) H 05/20/20 03:38 Carbon Dioxide 24 mmol/L (22-30) 05/20/20 03:38 Anion Gap 15 mmol/L 05/20/20 03:38 BUN 9 mg/dL (9-20) 05/20/20 03:38 Creatinine 1.0 mg/dL (0.8-1.3) 05/20/20 03:38 Estimated GFR > 60 ml/min 05/20/20 03:38 BUN/Creatinine Ratio 9 % 05/20/20 03:38 Glucose 100 mg/dL (75-100) 05/20/20 03:38 Hemoglobin A1c 4.6 % (4-6) 05/17/20 16:19 Calcium 9.0 mg/dL (8.4-10.2) 05/20/20 03:38 Total Bilirubin 0.40 mg/dL (0.1-1.2) 05/20/20 03:38 AST 85 units/L (5-40) H 05/20/20 03:38 ALT 26 units/L (7-56) 05/20/20 03:38 Alkaline Phosphatase 95 units/L (35-129) 05/20/20 03:38 Total Protein 6.7 g/dL (6.3-8.2) 05/20/20 03:38 Albumin 3.6 g/dL (3.9-5) L 05/20/20 03:38 Albumin/Globulin Ratio 1.2 % 05/20/20 03:38 Vitamin B12 331.4 pg/mL (211-911) 05/19/20 12:27 Folate 12.77 ng/mL (7.3-26.0) 05/19/20 12:27 Procalcitonin < 0.05 ng/mL (<0.15) 05/18/20 08:00 TSH 1.530 mlU/mL (0.270-4.200) 05/19/20 12:27 Urine Color Yellow (Yellow) 05/18/20 Unknown Urine Turbidity Clear (Clear) 05/18/20 Unknown Urine pH 5.0 (5.0-7.0) 05/18/20 Unknown Ur Specific [employer] 1.014 (1.003-1.030) 05/18/20 Unknown Urine Protein <15 mg/dl mg/dL (Negative) 05/18/20 Unknown Urine Glucose (UA) Neg mg/dL (Negative) 05/18/20 Unknown Urine Ketones Neg mg/dL (Negative) 05/18/20 Unknown Urine Blood Neg (Negative) 05/18/20 Unknown Urine Nitrite Neg (Negative) 05/18/20 Unknown Urine Bilirubin Neg (Negative) 05/18/20 Unknown Urine Urobilinogen < 2.0 mg/dL (<2.0) 05/18/20 Unknown Ur Leukocyte Esterase Neg (Negative) 05/18/20 Unknown Urine WBC (Auto) 1.0 /HPF (0.0-6.0) 05/18/20 Unknown Urine RBC (Auto) < 1.0 /HPF (0.0-6.0) 05/18/20 Unknown U Epithel Cells (Auto) < 1.0 /HPF (0-13.0) 05/18/20 Unknown Urine Mucus Few /HPF 05/18/20 Unknown Coronavirus (PCR) Negative (Negative) 05/18/20 11:00 Microbiology: Microbiology 05/18/20 Unknown Urine,[place] Urine Culture - Preliminary [place]/IV: Voiding Method Incontinent IV Catheter Type [Left Forearm Peripheral IV ] IV Catheter Type [Right Wrist] Peripheral IV IV Catheter Type [Right Peripheral IV Forearm] Active Medications - Current Medications Current Medications: Generic Name Dose Route Start Last Admin Trade Name Freq PRN Reason Stop Dose Admin Acetaminophen 650 mg 05/17/20 22:34 Tylenol PO Q4H PRN Pain MILD(1-3)/Fever >100.5/MONTALVO Aspirin 81 mg 05/20/20 10:00 05/20/20 09:19 Halfprin Ec PO 81 mg QDAY WYATT Administration Buspirone HCl 10 mg 05/19/20 22:00 05/20/20 09:19 Buspar PO 10 mg BID WYATT Administration Citalopram Hydrobromide 5 mg 05/20/20 10:00 05/20/20 09:18 Celexa PO 5 mg QDAY WYATT Administration Donepezil HCl 10 mg 05/19/20 22:00 05/19/20 21:54 Aricept PO 10 mg QHS WYATT Administration Enoxaparin Sodium 40 mg 05/21/20 22:00 Enoxaparin SUB-Q QDAY WYATT Protocol Famotidine 10 mg 05/17/20 23:00 05/20/20 09:19 Pepcid PO 10 mg BID WYATT Administration Dextrose/Sodium Chloride 1,000 mls @ 125 mls/hr 05/18/20 07:35 05/20/20 08:10 D5/0.45ns IV 125 mls/hr DIRECT WYATT Administration Ceftriaxone Sodium 2 gm in 100 mls @ 200 mls/hr 05/18/20 08:00 05/20/20 09:18 Rocephin/Ns 2 Gm/100 Ml IV 200 mls/hr Q24HR WYATT Administration Protocol Melatonin 5 mg 05/19/20 18:28 Melatonin PO QHS PRN Sleep Metoclopramide HCl 5 mg 05/17/20 22:45 Reglan IV Q6H PRN Nausea And Vomiting Metoprolol Tartrate 25 mg 05/19/20 22:00 05/20/20 09:18 Metoprolol PO 25 mg BID WYATT Administration Morphine Sulfate 2 mg 05/17/20 22:34 Morphine IV Q4H PRN Pain, Moderate (4-6) Olanzapine 2.5 mg 05/19/20 22:00 05/19/20 21:54 Zyprexa PO 2.5 mg QHS WYATT Administration Ondansetron HCl 4 mg 05/17/20 22:34 Zofran IV Q8H PRN Nausea And Vomiting Sodium Chloride 10 ml 05/18/20 10:00 05/19/20 21:56 Sodium Chloride Flush Syringe 10 Ml IV 10 ml BID WYATT Administration Sodium Chloride 10 ml 05/17/20 22:34 05/20/20 09:20 Sodium Chloride Flush Syringe 10 Ml IV 10 ml PRN PRN Administration LINE FLUSH
--- NOTE | 2020-05-20 13:26 | Consultation ---
History of Present Illness - Reason for Consult Consult date: 05/20/20 Reason for consult: agitation - Chief Complaint Chief complaint: Altered sensorium since a.m. - History of Present Psychiatric Illness Sonu Farnsworth is a 80y/o male patient who was admitted for altered mental status. I attempted to interview the patient today. The nurse at bedside states the patient has been agitated, confused and trying to get out of bed. The patient is in restraints. PAST PSYCHIATRIC HISTORY: Unable to obtain PAST MEDICAL HISTORY: Unable to obtain Family Psychiatric History: Unable to obtain SOCIAL HISTORY Unable to obtain REVIEW OF SYSTEMS Unable to obtain MENTAL STATUS EXAMINATION Unable to obtain Assessment and Plan (1) Dementia with Behavioral Disturbance Current Visit: Yes Status: Acute TREATMENT PLAN d/c olanzapine Start Risperidone 0.25mg po BID Sitter: Defer to primary Medical: Per primary Disposition: TBD Will follow. Thank you for this consult. Medications and Allergies Allergies Allergy/AdvReac Type Severity Reaction Status Date / Time No Known Allergies Allergy Verified 05/17/20 22:43 Home Medications Medication Instructions Recorded Confirmed Last Taken Type Aspirin 81 mg PO DAILY 05/19/20 05/19/20 Unknown History Citalopram [Celexa] 0.5 mg PO DAILY 05/19/20 05/19/20 Unknown History Combigan 0.2%-0.5% Eye Drops 1 drop OU BID 05/19/20 05/19/20 Unknown History Cozaar 25 mg PO DAILY 05/19/20 05/19/20 Unknown History Latanoprost 0.005% 1 drop OU QHS 05/19/20 05/19/20 Unknown History Lopressor 37.5 mg PO BID 05/19/20 05/19/20 Unknown History Melatonin 3MG TAB 3 mg PO QHS 05/19/20 05/19/20 Unknown History Milk of Magnesia 30 ml PO DAILY PRN 05/19/20 05/19/20 Unknown History Motrin 800 MG tab 800 mg PO Q4H PRN 05/19/20 05/19/20 Unknown History Tylenol 500 mg PO BID 05/19/20 05/19/20 Unknown History busPIRone 10 mg PO BID 05/19/20 05/19/20 Unknown History donepeziL 10 mg PO DAILY 05/19/20 05/19/20 Unknown History traMADoL 50 mg PO Q6H PRN 05/19/20 05/19/20 Unknown History Active Meds: Active Medications Acetaminophen (Tylenol) 650 mg PO Q4H PRN PRN Reason: Pain MILD(1-3)/Fever >100.5/MONTALVO Aspirin (Halfprin Ec) 81 mg PO QDAY [facility] Last Admin: 05/20/20 09:19 Dose: 81 mg Documented by: Buspirone HCl (Buspar) 10 mg PO BID [facility] Last Admin: 05/20/20 09:19 Dose: 10 mg Documented by: Citalopram Hydrobromide (Celexa) 5 mg PO QDAY [facility] Last Admin: 05/20/20 09:18 Dose: 5 mg Documented by: Donepezil HCl (Aricept) 10 mg PO QHS [facility] Last Admin: 05/19/20 21:54 Dose: 10 mg Documented by: Enoxaparin Sodium (Enoxaparin) 40 mg SUB-Q QDAY@1000 [facility] Famotidine (Pepcid) 10 mg PO BID [facility] Last Admin: 05/20/20 09:19 Dose: 10 mg Documented by: Dextrose/Sodium Chloride (D5/0.45ns) 1,000 mls @ 125 mls/hr IV DIRECT [facility] Last Admin: 05/20/20 08:10 Dose: 125 mls/hr Documented by: Melatonin (Melatonin) 5 mg PO QHS PRN PRN Reason: Sleep Metoclopramide HCl (Reglan) 5 mg IV Q6H PRN PRN Reason: Nausea And Vomiting Metoprolol Tartrate (Metoprolol) 25 mg PO BID [facility] Last Admin: 05/20/20 09:18 Dose: 25 mg Documented by: Morphine Sulfate (Morphine) 2 mg IV Q4H PRN PRN Reason: Pain, Moderate (4-6) Olanzapine (Zyprexa) 2.5 mg PO QHS [facility] Last Admin: 05/19/20 21:54 Dose: 2.5 mg Documented by: Ondansetron HCl (Zofran) 4 mg IV Q8H PRN PRN Reason: Nausea And Vomiting Sodium Chloride (Sodium Chloride Flush Syringe 10 Ml) 10 ml IV BID [facility] Last Admin: 05/19/20 21:56 Dose: 10 ml Documented by: Sodium Chloride (Sodium Chloride Flush Syringe 10 Ml) 10 ml IV PRN PRN PRN Reason: LINE FLUSH Last Admin: 05/20/20 09:20 Dose: 10 ml Documented by: Mental Status Exam - Vital signs Last Vital Signs Temp 100.1 F H 05/20/20 03:56 Pulse 95 H 05/20/20 03:56 Resp 20 05/20/20 03:56 BP 134/68 05/20/20 03:56 Pulse Ox 98 05/20/20 03:56 Results Result Diagrams: 05/20/20 03:38 05/20/20 03:38 Abnormal lab results 05/19/20 05/20/20 05/20/20 Range/Units 12:27 03:38 03:38 RBC 3.46 L (3.65-5.03) M/mm3 Hgb 11.7 L (11.8-15.2) gm/dl Hct 34.7 L (35.5-45.6) % MCV 100 H (84-94) fl MCH 34 H (28-32) pg RDW 12.9 L (13.2-15.2) % Plt Count 103 L (140-440) K/mm3 [place] % (Auto) 10.5 H (0.0-7.3) % Chloride 111.0 H 109.2 H (98-107) mmol/L Carbon Dioxide 18 L (22-30) mmol/L Glucose 126 H (75-100) mg/dL AST 55 H 85 H (5-40) units/L Albumin 3.6 L 3.6 L (3.9-5) g/dL All other labs normal.
[2020-05-20] MEDS: ENOXAPARIN 40 MG/0.4 ML INJ SUB-Q SCH (13:53)
[2020-05-20] MEDS ORDERED: HEPARIN 5,000 UNIT/1 ML VIAL SUB-Q SCH (14:00)
[2020-05-20] MEDS: risperiDONE 0.25 MG TAB PO SCH (21:07)
[2020-05-20] MEDS: DONEPEZIL 10 MG TAB PO SCH (21:08)
[2020-05-21 04:54] LABS: Hematocrit 31.9 % (35.5-45.6); Hemoglobin 10.9 gm/dl (11.8-15.2); Mean Corpuscular HGB Conc 34 % (32-34); Mean Corpuscular Volume 99 fl (84-94); Red Blood Count 3.24 M/mm3 (3.65-5.03); Red Cell Distribution Width 12.9 % (13.2-15.2)
[2020-05-21 04:55] LABS: Platelet Count 96 K/mm3 (140-440)
[2020-05-21 05:03] LABS: INR 1.11 (0.87-1.13); Partial Thromboplastin Time 33.8 Sec. (24.2-36.6)
[2020-05-21] MEDS: D5W/0.45% NACL 1,000 ML IV SCH ×2 (05:20→21:37)
[2020-05-21] MEDS: risperiDONE 0.25 MG TAB PO SCH ×3 (08:58→21:36)
[2020-05-21] MEDS: FAMOTIDINE 10 MG TAB PO SCH ×3 (08:58→21:36)
[2020-05-21] MEDS: METOPROLOL TARTRATE 25 MG TAB PO SCH ×3 (08:58→21:36)
[2020-05-21] MEDS: CITALOPRAM 10 MG TAB PO SCH (08:59)
[2020-05-21] MEDS: busPIRone 10 MG TAB PO SCH ×2 (09:00→21:36)
--- NOTE | 2020-05-21 11:13 | Progress Note ---
Subjective - Reason for Consult Consult date: 05/21/20 Reason for consult: Aggression - Chief Complaint Chief complaint: The patient is lying in bed. He is confused and his speech is nonsensical. He did ask me how I was doing. The upper half of the patient's bed is covered in emesis. Nursing staff notified. The patient is in restraints. REVIEW OF SYSTEMS Unable to obtain MENTAL STATUS EXAMINATION Unable to obtain Assessment and Plan (1) Dementia with Behavioral Disturbance Current Visit: Yes Status: Acute TREATMENT PLAN Continue Risperidone 0.25mg po BID Sitter: Defer to primary Medical: Per primary Disposition: TBD Will follow. Thank you for this consult. Mental Status Exam - Vital signs Last Vital Signs Temp 98.3 F 05/21/20 03:51 Pulse 78 05/20/20 22:21 Resp 18 05/21/20 03:51 BP 142/68 05/21/20 03:51 Pulse Ox 95 05/20/20 22:21
--- NOTE | 2020-05-21 12:16 | Progress Note ---
Assessment and Plan Assessment and plan: 80-year-old male with a medical history of dementia admitted with altered mental status. As per admission notes, patient was noted to be acting differently compared with baseline while in the residential. No reported fever or flulike illness. Due to concern for possible infection, patient was brought to the hospital for further evaluation Here in the ER, patient was started on IV antibiotic for possible UTI. CT head negative 05/19. Patient is still on IV antibiotics. He is alert and oriented x1. He is able to say time by looking at the clock however. Discussed case with patient's RN at the residential, who states that patient usually is able to have a normal conversation and is alert and oriented x2. Medication reviewed showed patient is not on any narcotics while in the residential. He has not had any temperature spike here. COVID-19 test performed was negative during this ad mission. His vital signs remained stable. Try to speak with brother on the phone but could not get him so I left a voice message. Still awaiting callback. 05/20. Spoke with RN at the nursing facility who states that patient usually alert and oriented x2 and is able to take a shower and have quite a normal conversation. He occasionally tells time when he looks at the clock. Patient has slight spike in temperature more than 100.1 Fahrenheit. Urinalysis showed no organisms. Procalcitonin was also negative. At this time I do not suspect a bacterial infection so will discontinue IV antibiotics. COVID-19 test already negative. Need to rule out viral illness at this time. Patient needs an LP- ordered LP and CSF analysis. Neurology to review as patient will need an MRI of the brain. His TSH, folate and vitamin B12 levels are all within normal limits. 05/21. He is awake, alert and oriented x1. Plan for LP today. Neurology to see. Patient Problems (1) Acute metabolic encephalopathy Current Visit: Yes Status: Acute Plan to address problem: CT head - negative COVID-19 - negative Need to rule out encephalitis. LP ordered. CSF analysis will be sent. Neurology consulted. Needs to have an MRI of the brain (2) Hyperkalemia Current Visit: Yes Status: Acute Plan to address problem: Resolved (3) YANET (acute kidney injury) Current Visit: Yes Status: Acute Plan to address problem: Improved (4) Debility, unspecified Current Visit: Yes Status: Acute Plan to address problem: PT/OT pending (5) Dementia with behavioral disturbance Current Visit: Yes Status: Acute Plan to address problem: Risperidone twice daily Psychiatry following (5) DVT prophylaxis Current Visit: Yes Status: Acute Plan to address problem: On heparin and GI prophylaxis History Interval history: Patient seen and examined at bedside this morning He will get LP today. Neurology evaluation Hospitalist Physical - Constitutional Vitals: Temp Pulse Resp BP Pulse Ox 98.3 F 78 18 142/68 95 05/21/20 03:51 05/20/20 22:21 05/21/20 03:51 05/21/20 03:51 05/20/20 22:21 General appearance: Present: mild distress, well-nourished Results - Labs CBC & Chem 7: 05/21/20 04:14 05/20/20 03:38 Labs: Laboratory Last Values WBC 5.2 K/mm3 (4.5-11.0) 05/21/20 04:14 RBC 3.24 M/mm3 (3.65-5.03) L 05/21/20 04:14 Hgb 10.9 gm/dl (11.8-15.2) L 05/21/20 04:14 Hct 31.9 % (35.5-45.6) L 05/21/20 04:14 MCV 99 fl (84-94) H 05/21/20 04:14 MCH 34 pg (28-32) H 05/21/20 04:14 MCHC 34 % (32-34) 05/21/20 04:14 RDW 12.9 % (13.2-15.2) L 05/21/20 04:14 Plt Count 96 K/mm3 (140-440) L 05/21/20 04:14 Lymph % (Auto) 19.9 % (13.4-35.0) 05/20/20 03:38 [place] % (Auto) 10.5 % (0.0-7.3) H 05/20/20 03:38 Eos % (Auto) 2.5 % (0.0-4.3) 05/20/20 03:38 Baso % (Auto) 0.3 % (0.0-1.8) 05/20/20 03:38 Lymph # (Auto) 1.2 K/mm3 (1.2-5.4) 05/20/20 03:38 [place] # (Auto) 0.7 K/mm3 (0.0-0.8) 05/20/20 03:38 Eos # (Auto) 0.2 K/mm3 (0.0-0.4) 05/20/20 03:38 Baso # (Auto) 0.0 K/mm3 (0.0-0.1) 05/20/20 03:38 Seg Neutrophils % 66.8 % (40.0-70.0) 05/20/20 03:38 Seg Neutrophils # 4.2 K/mm3 (1.8-7.7) 05/20/20 03:38 PT 14.2 Sec. (12.2-14.9) 05/21/20 04:14 INR 1.11 (0.87-1.13) 05/21/20 04:14 APTT 33.8 Sec. (24.2-36.6) 05/21/20 04:14 Sodium 144 mmol/L (137-145) 05/20/20 03:38 Potassium 4.6 mmol/L (3.6-5.0) 05/20/20 03:38 Chloride 109.2 mmol/L (98-107) H 05/20/20 03:38 Carbon Dioxide 24 mmol/L (22-30) 05/20/20 03:38 Anion Gap 15 mmol/L 05/20/20 03:38 BUN 9 mg/dL (9-20) 05/20/20 03:38 Creatinine 1.0 mg/dL (0.8-1.3) 05/20/20 03:38 Estimated GFR > 60 ml/min 05/20/20 03:38 BUN/Creatinine Ratio 9 % 05/20/20 03:38 Glucose 100 mg/dL (75-100) 05/20/20 03:38 Hemoglobin A1c 4.6 % (4-6) 05/17/20 16:19 Calcium 9.0 mg/dL (8.4-10.2) 05/20/20 03:38 Total Bilirubin 0.40 mg/dL (0.1-1.2) 05/20/20 03:38 AST 85 units/L (5-40) H 05/20/20 03:38 ALT 26 units/L (7-56) 05/20/20 03:38 Alkaline Phosphatase 95 units/L (35-129) 05/20/20 03:38 Total Protein 6.7 g/dL (6.3-8.2) 05/20/20 03:38 Albumin 3.6 g/dL (3.9-5) L 05/20/20 03:38 Albumin/Globulin Ratio 1.2 % 05/20/20 03:38 Vitamin B12 331.4 pg/mL (211-911) 05/19/20 12:27 Folate 12.77 ng/mL (7.3-26.0) 05/19/20 12:27 Procalcitonin < 0.05 ng/mL (<0.15) 05/18/20 08:00 TSH 1.530 mlU/mL (0.270-4.200) 05/19/20 12:27 Urine Color Yellow (Yellow) 05/18/20 Unknown Urine Turbidity Clear (Clear) 05/18/20 Unknown Urine pH 5.0 (5.0-7.0) 05/18/20 Unknown Ur Specific [place] 1.014 (1.003-1.030) 05/18/20 Unknown Urine Protein <15 mg/dl mg/dL (Negative) 05/18/20 Unknown Urine Glucose (UA) Neg mg/dL (Negative) 05/18/20 Unknown Urine Ketones Neg mg/dL (Negative) 05/18/20 Unknown Urine Blood Neg (Negative) 05/18/20 Unknown Urine Nitrite Neg (Negative) 05/18/20 Unknown Urine Bilirubin Neg (Negative) 05/18/20 Unknown Urine Urobilinogen < 2.0 mg/dL (<2.0) 05/18/20 Unknown Ur Leukocyte Esterase Neg (Negative) 05/18/20 Unknown Urine WBC (Auto) 1.0 /HPF (0.0-6.0) 05/18/20 Unknown Urine RBC (Auto) < 1.0 /HPF (0.0-6.0) 05/18/20 Unknown U Epithel Cells (Auto) < 1.0 /HPF (0-13.0) 05/18/20 Unknown Urine Mucus Few /HPF 05/18/20 Unknown Coronavirus (PCR) Negative (Negative) 05/18/20 11:00 Microbiology: Microbiology 05/18/20 Unknown Urine,[place] Urine Culture - Preliminary Pat[place]/IV: Voiding Method Condom Catheter IV Catheter Type [Left Forearm Peripheral IV ] IV Catheter Type [Right Wrist] Peripheral IV IV Catheter Type [Right Peripheral IV Forearm] Active Medications - Current Medications Current Medications: Generic Name Dose Route Start Last Admin Trade Name Freq PRN Reason Stop Dose Admin Acetaminophen 650 mg 05/17/20 22:34 Tylenol PO Q4H PRN Pain MILD(1-3)/Fever >100.5/MONTALVO Aspirin 81 mg 05/20/20 10:00 05/20/20 09:19 Halfprin Ec PO 81 mg QDAY WYATT Administration Buspirone HCl 10 mg 05/19/20 22:00 05/21/20 09:00 Buspar PO 10 mg BID WYATT Administration Citalopram Hydrobromide 5 mg 05/20/20 10:00 05/21/20 08:59 Celexa PO 5 mg QDAY WYATT Administration Donepezil HCl 10 mg 05/19/20 22:00 05/20/20 21:08 Aricept PO 10 mg QHS WYATT Administration Enoxaparin Sodium 40 mg 05/20/20 12:00 05/20/20 13:53 Enoxaparin SUB-Q 40 mg QDAY@1000 WYATT Administration Famotidine 10 mg 05/17/20 23:00 05/21/20 08:58 Pepcid PO 10 mg BID WYATT Administration Dextrose/Sodium Chloride 1,000 mls @ 125 mls/hr 05/18/20 07:35 05/21/20 05:20 D5/0.45ns IV 125 mls/hr DIRECT WYATT Administration Melatonin 5 mg 05/19/20 18:28 Melatonin PO QHS PRN Sleep Metoclopramide HCl 5 mg 05/17/20 22:45 05/21/20 10:15 Reglan IV 5 mg Q6H PRN Administration Nausea And Vomiting Metoprolol Tartrate 25 mg 05/19/20 22:00 05/21/20 08:58 Metoprolol PO 25 mg BID WYATT Administration Morphine Sulfate 2 mg 05/17/20 22:34 Morphine IV Q4H PRN Pain, Moderate (4-6) Ondansetron HCl 4 mg 05/17/20 22:34 05/21/20 05:20 Zofran IV 4 mg Q8H PRN Administration Nausea And Vomiting Risperidone 0.25 mg 05/20/20 22:00 05/21/20 08:58 Risperdal PO 0.25 mg BID WYATT Administration Sodium Chloride 10 ml 05/18/20 10:00 05/21/20 09:00 Sodium Chloride Flush Syringe 10 Ml IV 10 ml BID WYATT Administration Sodium Chloride 10 ml 05/17/20 22:34 05/20/20 09:20 Sodium Chloride Flush Syringe 10 Ml IV 10 ml PRN PRN Administration LINE FLUSH
[2020-05-21] MEDS: ASPIRIN EC 81 MG TAB PO SCH (14:29)
--- NOTE | 2020-05-21 17:12 | Consultation ---
History of Present Illness Consult date: 05/21/20 Reason for Consult: change in mental status History of present illness: This is a comprehensive neurological consultation on Mr. Sonu Bean who is a very pleasant 80-year-old gentleman admitted with the symptoms of agitation, change in mental status. Patient has advanced dementia and therefore cannot provide any detailed history. This information has been obtained from his current chart. It was also reported that he may have had urinary tract infection. He was also evaluated by psychiatrist who reported that patient's dementia is associated with behavioral changes. Currently patient is on restraint with the mittens in his both hands. He does not know where he is as well as he does not move right leg. History is very limited. Past History Past Medical History: other (dementia) Past Surgical History: Other (unable to obtain) Social history: other (unable to obtain) Family history: other (unable to obtain) Medications and Allergies Allergies Allergy/AdvReac Type Severity Reaction Status Date / Time No Known Allergies Allergy Verified 05/17/20 22:43 Home Medications Medication Instructions Recorded Confirmed Last Taken Type Aspirin 81 mg PO DAILY 05/19/20 05/19/20 Unknown History Citalopram [Celexa] 0.5 mg PO DAILY 05/19/20 05/19/20 Unknown History Combigan 0.2%-0.5% Eye Drops 1 drop OU BID 05/19/20 05/19/20 Unknown History Cozaar 25 mg PO DAILY 05/19/20 05/19/20 Unknown History Latanoprost 0.005% 1 drop OU QHS 05/19/20 05/19/20 Unknown History Lopressor 37.5 mg PO BID 05/19/20 05/19/20 Unknown History Melatonin 3MG TAB 3 mg PO QHS 05/19/20 05/19/20 Unknown History Milk of Magnesia 30 ml PO DAILY PRN 05/19/20 05/19/20 Unknown History Motrin 800 MG tab 800 mg PO Q4H PRN 05/19/20 05/19/20 Unknown History Tylenol 500 mg PO BID 05/19/20 05/19/20 Unknown History busPIRone 10 mg PO BID 05/19/20 05/19/20 Unknown History donepeziL 10 mg PO DAILY 05/19/20 05/19/20 Unknown History traMADoL 50 mg PO Q6H PRN 05/19/20 05/19/20 Unknown History Active Meds: Active Medications Acetaminophen (Tylenol) 650 mg PO Q4H PRN PRN Reason: Pain MILD(1-3)/Fever >100.5/MONTALVO Aspirin (Halfprin Ec) 81 mg PO QDAY [facility] Last Admin: 05/21/20 14:29 Dose: Not Given Documented by: Buspirone HCl (Buspar) 10 mg PO BID [facility] Last Admin: 05/21/20 09:00 Dose: 10 mg Documented by: Citalopram Hydrobromide (Celexa) 5 mg PO QDAY [facility] Last Admin: 05/21/20 08:59 Dose: 5 mg Documented by: Donepezil HCl (Aricept) 10 mg PO QHS [facility] Last Admin: 05/20/20 21:08 Dose: 10 mg Documented by: Enoxaparin Sodium (Enoxaparin) 40 mg SUB-Q QDAY@1000 [facility] Last Admin: 05/20/20 13:53 Dose: 40 mg Documented by: Famotidine (Pepcid) 10 mg PO BID [facility] Last Admin: 05/21/20 08:58 Dose: 10 mg Documented by: Dextrose/Sodium Chloride (D5/0.45ns) 1,000 mls @ 125 mls/hr IV DIRECT [facility] Last Admin: 05/21/20 05:20 Dose: 125 mls/hr Documented by: Melatonin (Melatonin) 5 mg PO QHS PRN PRN Reason: Sleep Metoclopramide HCl (Reglan) 5 mg IV Q6H PRN PRN Reason: Nausea And Vomiting Last Admin: 05/21/20 10:15 Dose: 5 mg Documented by: Metoprolol Tartrate (Metoprolol) 25 mg PO BID [facility] Last Admin: 05/21/20 08:58 Dose: 25 mg Documented by: Morphine Sulfate (Morphine) 2 mg IV Q4H PRN PRN Reason: Pain, Moderate (4-6) Ondansetron HCl (Zofran) 4 mg IV Q8H PRN PRN Reason: Nausea And Vomiting Last Admin: 05/21/20 05:20 Dose: 4 mg Documented by: Risperidone (Risperdal) 0.25 mg PO BID [facility] Last Admin: 05/21/20 08:58 Dose: 0.25 mg Documented by: Sodium Chloride (Sodium Chloride Flush Syringe 10 Ml) 10 ml IV BID WYATT Last Admin: 05/21/20 09:00 Dose: 10 ml Documented by: Sodium Chloride (Sodium Chloride Flush Syringe 10 Ml) 10 ml IV PRN PRN PRN Reason: LINE FLUSH Last Admin: 05/20/20 09:20 Dose: 10 ml Documented by: Review of Systems ROS unobtainable: due to mental status Physical Examination - Vital Signs Vital Signs: Vital Signs Temp Pulse Resp BP Pulse Ox 97.8 F 48 L 18 123/26 96 05/17/20 16:24 05/17/20 16:24 05/17/20 16:24 05/17/20 16:24 05/17/20 16:24 - Physical Exam Narrative exam: Limited examinations Patient at times communicate but does not know where he is, today's date, month, and year. He thinks that he is at home. Speech he does speak few words Cranial nerve examinations Limited Pupils are reacting EOMI Face looks symmetrical Other cranial nerves are difficult to examine Motor: He does wiggle his both hand fingers as well as able to move the left leg but does not move the right leg as well The rest of the neuro exam is difficult to examine - Constitutional General appearance: comfortable - EENT EENT: Present: ATNC, PERRL, hearing intact - Respiratory Respiratory: Present: chest non-tender - Cardiovascular Cardiovascular: Present: regular rate Extremities: Present: no peripheral edema bilatateraly - Gastrointestinal Gastrointestinal: Present: soft - Integumentary Integumentary: Present: normal Results - Laboratory Findings CBC and BMP: 05/21/20 04:14 05/20/20 03:38 Abnormal Lab Findings: Abnormal Labs 05/17/20 05/17/20 05/17/20 16:19 16:19 17:26 RBC Hgb Hct MCV 99 H MCH 34 H MCHC RDW Plt Count 117 L [place] % (Auto) Lymph # (Auto) 1.0 L Seg Neutrophils % 75.6 H Potassium 5.6 H 5.9 H Chloride 108.6 H Carbon Dioxide BUN 30 H Creatinine 1.6 H Glucose AST Albumin 05/18/20 05/18/20 05/19/20 04:00 04:56 12:27 RBC 3.49 L 3.39 L Hgb 11.5 L Hct 34.3 L 34.0 L MCV 98 H 100 H MCH 34 H 34 H MCHC 35 H RDW 13.0 L 12.8 L Plt Count 104 L 100 L [place] % (Auto) 7.9 H 9.1 H Lymph # (Auto) 1.0 L Seg Neutrophils % Potassium Chloride 112.0 H Carbon Dioxide 21 L BUN 28 H Creatinine Glucose AST Albumin 3.8 L 05/19/20 05/20/20 05/20/20 12:27 03:38 03:38 RBC 3.46 L Hgb 11.7 L Hct 34.7 L MCV 100 H MCH 34 H MCHC RDW 12.9 L Plt Count 103 L [place] % (Auto) 10.5 H Lymph # (Auto) Seg Neutrophils % Potassium Chloride 111.0 H 109.2 H Carbon Dioxide 18 L BUN Creatinine Glucose 126 H AST 55 H 85 H Albumin 3.6 L 3.6 L 05/21/20 04:14 RBC 3.24 L Hgb 10.9 L Hct 31.9 L MCV 99 H MCH 34 H MCHC RDW 12.9 L Plt Count 96 L [place] % (Auto) Lymph # (Auto) Seg Neutrophils % Potassium Chloride Carbon Dioxide BUN Creatinine Glucose AST Albumin - Diagnostic Findings Additional findings: CT scan of the brain is unremarkable Assessment and Plan - Patient Problems (1) Alzheimer's dementia with behavioral disturbance Current Visit: Yes Status: Acute Plan to address problem: Plan: 1) Continue care as prescribed by psychiatrist 2) Continue Aricept as prescribed 3) Please order an EEG to make sure he does not have subclinical seizures (2) Acute encephalopathy Current Visit: Yes Status: Acute Plan to address problem: Plan: 1) Likely multifactorial 2) Please obtain an MRI of brain to see if there is any new stroke if possible 3) Treat underlying infection and electrolyte imbalance as per primary care physician's advice 4) poor prognosis Thank you very much for allowing us in the care of your patient. Please call us if you have any questions. Otilia Lin MD Tele-neurologist [phone]
[2020-05-21] MEDS: ENOXAPARIN 40 MG/0.4 ML INJ SUB-Q SCH (17:20)
[2020-05-21] MEDS: DONEPEZIL 10 MG TAB PO SCH (21:36)
[2020-05-21] MEDS ORDERED: ENOXAPARIN 30 MG/0.3 ML INJ SUB-Q SCH (22:00)
[2020-05-22] MEDS: D5W/0.45% NACL 1,000 ML IV SCH ×3 (06:08→23:52)
[2020-05-22] MEDS: risperiDONE 0.25 MG TAB PO SCH ×2 (10:04→21:58)
[2020-05-22] MEDS: FAMOTIDINE 10 MG TAB PO SCH ×2 (10:04→21:57)
[2020-05-22] MEDS: ENOXAPARIN 40 MG/0.4 ML INJ SUB-Q SCH (10:04)
[2020-05-22] MEDS: busPIRone 10 MG TAB PO SCH ×2 (10:04→22:00)
[2020-05-22] MEDS: CITALOPRAM 10 MG TAB PO SCH (10:05)
[2020-05-22] MEDS: METOPROLOL TARTRATE 25 MG TAB PO SCH ×2 (10:05→21:59)
[2020-05-22] MEDS: ASPIRIN EC 81 MG TAB PO SCH (10:10)
--- NOTE | 2020-05-22 10:19 | Progress Note ---
Subjective - Reason for Consult Consult date: 05/22/20 Reason for consult: agitation - Chief Complaint Chief complaint: The patient is lying in bed. He is confused and his speech is nonsensical. He does reply "fine" when I ask him how he's doing. The patient then starts talking incoherently. He is unable to give any insight into what is going on with him. He is in restraints. REVIEW OF SYSTEMS Unable to obtain MENTAL STATUS EXAMINATION Unable to obtain Assessment and Plan (1) Dementia with Behavioral Disturbance Current Visit: Yes Status: Acute TREATMENT PLAN Sitter: Defer to primary Medical: Per primary Disposition: Do not recommend acute psychiatric inpatient treatment at this [facility]. It is my clinical opinion the patient would not benefit from psychiatric services. He has complex medical conditions that override his psychiatric need at this time. Will sign off. Please place a new consult if needed in the future. Thank you for this consult. Mental Status Exam - Vital signs Last Vital Signs Temp 98.4 F 05/22/20 04:34 Pulse 60 05/22/20 10:05 Resp 15 05/22/20 04:34 BP 121/46 05/22/20 10:05 Pulse Ox 98 05/22/20 04:34
--- NOTE | 2020-05-22 15:13 | Progress Note ---
Assessment and Plan Assessment and plan: (1) Acute metabolic encephalopathy Current Visit: Yes Status: Acute Plan to address problem: CT head - negative COVID-19 - negative Need to rule out encephalitis. LP ordered. CSF analysis will be sent. Neurology consulted. Needs to have an MRI of the brain (2) Hyperkalemia Current Visit: Yes Status: Acute Plan to address problem: Resolved (3) YANET (acute kidney injury) Current Visit: Yes Status: Acute Plan to address problem: Improved (4) Debility, unspecified Current Visit: Yes Status: Acute Plan to address problem: PT/OT pending (5) Dementia with behavioral disturbance Current Visit: Yes Status: Acute Plan to address problem: Risperidone twice daily Psychiatry following (5) DVT prophylaxis Current Visit: Yes Status: Acute Plan to address problem: On heparin and GI prophylaxis 05/19. Patient is still on IV antibiotics. He is alert and oriented x1. He is able to say time by looking at the clock however. Discussed case with patient's RN at the snf, who states that patient usually is able to have a normal conversation and is alert and oriented x2. Medication reviewed showed patient is not on any narcotics while in the snf. He has not had any temperature spike here. COVID-19 test performed was negative during this admission. His vital signs remained stable. Try to speak with brother on the phone but could not get him so I left a voice message. Still awaiting callback. 05/20. Spoke with RN at the nursing facility who states that patient usually alert and oriented x2 and is able to take a shower and have quite a normal conversation. He occasionally tells time when he looks at the clock. Patient has slight spike in temperature more than 100.1 Fahrenheit. Urinalysis showed no organisms. Procalcitonin was also negative. At this time I do not suspect a bacterial infection so will discontinue IV antibiotics. COVID-19 test already negative. Need to rule out viral illness at this time. Patient needs an LP- ordered LP and CSF analysis. Neurology to review as patient will need an MRI of the brain. His TSH, folate and vitamin B12 levels are all within normal limits. 05/21. He is awake, alert and oriented x1. Plan for LP today. Neurology to see. 05/22. F/U EEG for subclinical sz. Check MRI brain per Neuro History Interval history: 80-year-old male with a medical history of dementia admitted with altered mental status. As per admission notes, patient was noted to be acting differently compared with baseline while in the snf. No reported fever or flulike illness. Due to concern for possible infection, patient was brought to the hospital for further evaluation Hospitalist Physical - Constitutional Vitals: Temp Pulse Resp BP Pulse Ox 98.4 F 60 15 121/46 98 05/22/20 04:34 05/22/20 10:05 05/22/20 04:34 05/22/20 10:05 05/22/20 04:34 General appearance: Present: mild distress, well-nourished - EENT Eyes: Present: PERRL, EOM intact ENT: hearing intact, clear oral mucosa, dentition normal - Neck Neck: Present: supple, normal ROM - Respiratory Respiratory effort: normal Respiratory: bilateral: CTA - Cardiovascular Rhythm: regular Heart Sounds: Present: S1 & S2. Absent: gallop, rub - Extremities Extremities: no ischemia, No edema, Full ROM - Abdominal General gastrointestinal: soft, non-tender, non-distended, normal bowel sounds - Integumentary Integumentary: Present: clear, warm, dry - Neurologic Neurologic: CNII-XII intact, moves all extremities Results - Labs CBC & Chem 7: 05/21/20 04:14 05/20/20 03:38 Labs: Laboratory Last Values WBC 5.2 K/mm3 (4.5-11.0) 05/21/20 04:14 RBC 3.24 M/mm3 (3.65-5.03) L 05/21/20 04:14 Hgb 10.9 gm/dl (11.8-15.2) L 05/21/20 04:14 Hct 31.9 % (35.5-45.6) L 05/21/20 04:14 MCV 99 fl (84-94) H 05/21/20 04:14 MCH 34 pg (28-32) H 05/21/20 04:14 MCHC 34 % (32-34) 05/21/20 04:14 RDW 12.9 % (13.2-15.2) L 05/21/20 04:14 Plt Count 96 K/mm3 (140-440) L 05/21/20 04:14 Lymph % (Auto) 19.9 % (13.4-35.0) 05/20/20 03:38 [place] % (Auto) 10.5 % (0.0-7.3) H 05/20/20 03:38 Eos % (Auto) 2.5 % (0.0-4.3) 05/20/20 03:38 Baso % (Auto) 0.3 % (0.0-1.8) 05/20/20 03:38 Lymph # (Auto) 1.2 K/mm3 (1.2-5.4) 05/20/20 03:38 [place] # (Auto) 0.7 K/mm3 (0.0-0.8) 05/20/20 03:38 Eos # (Auto) 0.2 K/mm3 (0.0-0.4) 05/20/20 03:38 Baso # (Auto) 0.0 K/mm3 (0.0-0.1) 05/20/20 03:38 Seg Neutrophils % 66.8 % (40.0-70.0) 05/20/20 03:38 Seg Neutrophils # 4.2 K/mm3 (1.8-7.7) 05/20/20 03:38 PT 14.2 Sec. (12.2-14.9) 05/21/20 04:14 INR 1.11 (0.87-1.13) 05/21/20 04:14 APTT 33.8 Sec. (24.2-36.6) 05/21/20 04:14 Sodium 144 mmol/L (137-145) 05/20/20 03:38 Potassium 4.6 mmol/L (3.6-5.0) 05/20/20 03:38 Chloride 109.2 mmol/L (98-107) H 05/20/20 03:38 Carbon Dioxide 24 mmol/L (22-30) 05/20/20 03:38 Anion Gap 15 mmol/L 05/20/20 03:38 BUN 9 mg/dL (9-20) 05/20/20 03:38 Creatinine 1.0 mg/dL (0.8-1.3) 05/20/20 03:38 Estimated GFR > 60 ml/min 05/20/20 03:38 BUN/Creatinine Ratio 9 % 05/20/20 03:38 Glucose 100 mg/dL (75-100) 05/20/20 03:38 Hemoglobin A1c 4.6 % (4-6) 05/17/20 16:19 Calcium 9.0 mg/dL (8.4-10.2) 05/20/20 03:38 Total Bilirubin 0.40 mg/dL (0.1-1.2) 05/20/20 03:38 AST 85 units/L (5-40) H 05/20/20 03:38 ALT 26 units/L (7-56) 05/20/20 03:38 Alkaline Phosphatase 95 units/L (35-129) 05/20/20 03:38 Total Protein 6.7 g/dL (6.3-8.2) 05/20/20 03:38 Albumin 3.6 g/dL (3.9-5) L 05/20/20 03:38 Albumin/Globulin Ratio 1.2 % 05/20/20 03:38 Vitamin B12 331.4 pg/mL (211-911) 05/19/20 12:27 Folate 12.77 ng/mL (7.3-26.0) 05/19/20 12:27 Procalcitonin < 0.05 ng/mL (<0.15) 05/18/20 08:00 TSH 1.530 mlU/mL (0.270-4.200) 05/19/20 12:27 Urine Color Yellow (Yellow) 05/18/20 Unknown Urine Turbidity Clear (Clear) 05/18/20 Unknown Urine pH 5.0 (5.0-7.0) 05/18/20 Unknown Ur Specific [place] 1.014 (1.003-1.030) 05/18/20 Unknown Urine Protein <15 mg/dl mg/dL (Negative) 05/18/20 Unknown Urine Glucose (UA) Neg mg/dL (Negative) 05/18/20 Unknown Urine Ketones Neg mg/dL (Negative) 05/18/20 Unknown Urine Blood Neg (Negative) 05/18/20 Unknown Urine Nitrite Neg (Negative) 05/18/20 Unknown Urine Bilirubin Neg (Negative) 05/18/20 Unknown Urine Urobilinogen < 2.0 mg/dL (<2.0) 05/18/20 Unknown Ur Leukocyte Esterase Neg (Negative) 05/18/20 Unknown Urine WBC (Auto) 1.0 /HPF (0.0-6.0) 05/18/20 Unknown Urine RBC (Auto) < 1.0 /HPF (0.0-6.0) 05/18/20 Unknown U Epithel Cells (Auto) < 1.0 /HPF (0-13.0) 05/18/20 Unknown Urine Mucus Few /HPF 05/18/20 Unknown Coronavirus (PCR) Negative (Negative) 05/18/20 11:00 Microbiology: Microbiology 05/18/20 Unknown Urine,[place] Urine Culture - Final Patel/IV: Voiding Method Condom Catheter IV Catheter Type [Left Forearm Peripheral IV ] IV Catheter Type [Right Wrist] Peripheral IV IV Catheter Type [Right Peripheral IV Forearm] Active Medications - Current Medications Current Medications: Generic Name Dose Route Start Last Admin Trade Name Freq PRN Reason Stop Dose Admin Acetaminophen 650 mg 05/17/20 22:34 Tylenol PO Q4H PRN Pain MILD(1-3)/Fever >100.5/MONTALVO Aspirin 81 mg 05/20/20 10:00 05/22/20 10:10 Halfprin Ec PO 81 mg QDAY WYATT Administration Buspirone HCl 10 mg 05/19/20 22:00 05/22/20 10:04 Buspar PO 10 mg BID WYATT Administration Citalopram Hydrobromide 5 mg 05/20/20 10:00 05/22/20 10:05 Celexa PO 5 mg QDAY WYATT Administration Donepezil HCl 10 mg 05/19/20 22:00 05/21/20 21:36 Aricept PO 10 mg QHS WYATT Administration Enoxaparin Sodium 40 mg 05/20/20 12:00 05/22/20 10:04 Enoxaparin SUB-Q 40 mg QDAY@1000 WYATT Administration Famotidine 10 mg 05/17/20 23:00 05/22/20 10:04 Pepcid PO 10 mg BID WYATT Administration Dextrose/Sodium Chloride 1,000 mls @ 125 mls/hr 05/18/20 07:35 05/22/20 14:30 D5/0.45ns IV 125 mls/hr DIRECT WYATT Administration Melatonin 5 mg 05/19/20 18:28 Melatonin PO QHS PRN Sleep Metoclopramide HCl 5 mg 05/17/20 22:45 05/21/20 10:15 Reglan IV 5 mg Q6H PRN Administration Nausea And Vomiting Metoprolol Tartrate 25 mg 05/19/20 22:00 05/22/20 10:05 Metoprolol PO 25 mg BID WYATT Administration Morphine Sulfate 2 mg 05/17/20 22:34 Morphine IV Q4H PRN Pain, Moderate (4-6) Ondansetron HCl 4 mg 05/17/20 22:34 05/21/20 05:20 Zofran IV 4 mg Q8H PRN Administration Nausea And Vomiting Risperidone 0.25 mg 05/20/20 22:00 05/22/20 10:04 Risperdal PO 0.25 mg BID WYATT Administration Sodium Chloride 10 ml 05/18/20 10:00 05/22/20 10:11 Sodium Chloride Flush Syringe 10 Ml IV 10 ml BID WYATT Administration Sodium Chloride 10 ml 05/17/20 22:34 05/20/20 09:20 Sodium Chloride Flush Syringe 10 Ml IV 10 ml PRN PRN Administration LINE FLUSH
[2020-05-22] MEDS: DONEPEZIL 10 MG TAB PO SCH (21:57)
[2020-05-23] MEDS: D5W/0.45% NACL 1,000 ML IV SCH (06:52)
[2020-05-23] MEDS: METOPROLOL TARTRATE 25 MG TAB PO SCH ×2 (10:34→21:45)
[2020-05-23] MEDS: FAMOTIDINE 10 MG TAB PO SCH ×2 (10:34→21:47)
[2020-05-23] MEDS: risperiDONE 0.25 MG TAB PO SCH ×2 (10:35→21:45)
[2020-05-23] MEDS: CITALOPRAM 10 MG TAB PO SCH (10:35)
[2020-05-23] MEDS: busPIRone 10 MG TAB PO SCH ×2 (10:35→21:46)
--- NOTE | 2020-05-23 10:55 | Progress Note ---
Assessment and Plan Assessment and plan: (1) Acute metabolic encephalopathy Current Visit: Yes Status: Acute Plan to address problem: CT head - negative COVID-19 - negative Need to rule out encephalitis. LP ordered. CSF analysis will be sent. Neurology consulted. Needs to have an MRI of the brain (2) Hyperkalemia Current Visit: Yes Status: Acute Plan to address problem: Resolved (3) YANET (acute kidney injury) Current Visit: Yes Status: Acute Plan to address problem: Improved (4) Debility, unspecified Current Visit: Yes Status: Acute Plan to address problem: PT/OT pending (5) Dementia with behavioral disturbance Current Visit: Yes Status: Acute Plan to address problem: Risperidone twice daily Psychiatry following (5) DVT prophylaxis Current Visit: Yes Status: Acute Plan to address problem: On heparin and GI prophylaxis 05/19. Patient is still on IV antibiotics. He is alert and oriented x1. He is able to say time by looking at the clock however. Discussed case with patient's RN at the [facility], who states that patient usually is able to have a normal conversation and is alert and oriented x2. Medication reviewed showed patient is not on any narcotics while in the longterm. He has not had any temperature spike here. COVID-19 test performed was negative during this admission. His vital signs remained stable. Try to speak with brother on the phone but could not get him so I left a voice message. Still awaiting callback. 05/20. Spoke with RN at the nursing facility who states that patient usually alert and oriented x2 and is able to take a shower and have quite a normal conversation. He occasionally tells time when he looks at the clock. Patient has slight spike in temperature more than 100.1 Fahrenheit. Urinalysis showed no organisms. Procalcitonin was also negative. At this time I do not suspect a bacterial infection so will discontinue IV antibiotics. COVID-19 test already negative. Need to rule out viral illness at this time. Patient needs an LP- ordered LP and CSF analysis. Neurology to review as patient will need an MRI of the brain. His TSH, folate and vitamin B12 levels are all within normal limits. 05/21. He is awake, alert and oriented x1. Plan for LP today. Neurology to see. 05/22. F/U EEG for subclinical sz. Check MRI brain per Neuro 05/23/2020. Patient remains encephalopathic. Await follow-up EEG and MRI brain per neurology recommendations. History Interval history: 80-year-old male with a medical history of dementia admitted with altered mental status. As per admission notes, patient was noted to be acting differently compared with baseline while in the longterm. No reported fever or flulike illness. Due to concern for possible infection, patient was brought to the hospital for further evaluation Hospitalist Physical - Constitutional Vitals: Temp Pulse Resp BP Pulse Ox 97.0 F L 60 16 127/52 100 05/23/20 06:34 05/23/20 06:34 05/23/20 06:34 05/23/20 06:34 05/23/20 06:34 General appearance: Present: mild distress, well-nourished - EENT Eyes: Present: PERRL, EOM intact ENT: hearing intact, clear oral mucosa, dentition normal - Neck Neck: Present: supple, normal ROM - Respiratory Respiratory effort: normal Respiratory: bilateral: CTA - Cardiovascular Rhythm: regular Heart Sounds: Present: S1 & S2. Absent: gallop, rub - Extremities Extremities: no ischemia, No edema, Full ROM - Abdominal General gastrointestinal: soft, non-tender, non-distended, normal bowel sounds - Integumentary Integumentary: Present: clear, warm, dry - Neurologic Neurologic: CNII-XII intact, moves all extremities Results - Labs CBC & Chem 7: 05/21/20 04:14 05/20/20 03:38 Labs: Laboratory Last Values WBC 5.2 K/mm3 (4.5-11.0) 05/21/20 04:14 RBC 3.24 M/mm3 (3.65-5.03) L 05/21/20 04:14 Hgb 10.9 gm/dl (11.8-15.2) L 05/21/20 04:14 Hct 31.9 % (35.5-45.6) L 05/21/20 04:14 MCV 99 fl (84-94) H 05/21/20 04:14 MCH 34 pg (28-32) H 05/21/20 04:14 MCHC 34 % (32-34) 05/21/20 04:14 RDW 12.9 % (13.2-15.2) L 05/21/20 04:14 Plt Count 96 K/mm3 (140-440) L 05/21/20 04:14 Lymph % (Auto) 19.9 % (13.4-35.0) 05/20/20 03:38 [place] % (Auto) 10.5 % (0.0-7.3) H 05/20/20 03:38 Eos % (Auto) 2.5 % (0.0-4.3) 05/20/20 03:38 Baso % (Auto) 0.3 % (0.0-1.8) 05/20/20 03:38 Lymph # (Auto) 1.2 K/mm3 (1.2-5.4) 05/20/20 03:38 [place] # (Auto) 0.7 K/mm3 (0.0-0.8) 05/20/20 03:38 Eos # (Auto) 0.2 K/mm3 (0.0-0.4) 05/20/20 03:38 Baso # (Auto) 0.0 K/mm3 (0.0-0.1) 05/20/20 03:38 Seg Neutrophils % 66.8 % (40.0-70.0) 05/20/20 03:38 Seg Neutrophils # 4.2 K/mm3 (1.8-7.7) 05/20/20 03:38 PT 14.2 Sec. (12.2-14.9) 05/21/20 04:14 INR 1.11 (0.87-1.13) 05/21/20 04:14 APTT 33.8 Sec. (24.2-36.6) 05/21/20 04:14 Sodium 144 mmol/L (137-145) 05/20/20 03:38 Potassium 4.6 mmol/L (3.6-5.0) 05/20/20 03:38 Chloride 109.2 mmol/L (98-107) H 05/20/20 03:38 Carbon Dioxide 24 mmol/L (22-30) 05/20/20 03:38 Anion Gap 15 mmol/L 05/20/20 03:38 BUN 9 mg/dL (9-20) 05/20/20 03:38 Creatinine 1.0 mg/dL (0.8-1.3) 05/20/20 03:38 Estimated GFR > 60 ml/min 05/20/20 03:38 BUN/Creatinine Ratio 9 % 05/20/20 03:38 Glucose 100 mg/dL (75-100) 05/20/20 03:38 Hemoglobin A1c 4.6 % (4-6) 05/17/20 16:19 Calcium 9.0 mg/dL (8.4-10.2) 05/20/20 03:38 Total Bilirubin 0.40 mg/dL (0.1-1.2) 05/20/20 03:38 AST 85 units/L (5-40) H 05/20/20 03:38 ALT 26 units/L (7-56) 05/20/20 03:38 Alkaline Phosphatase 95 units/L (35-129) 05/20/20 03:38 Total Protein 6.7 g/dL (6.3-8.2) 05/20/20 03:38 Albumin 3.6 g/dL (3.9-5) L 05/20/20 03:38 Albumin/Globulin Ratio 1.2 % 05/20/20 03:38 Vitamin B12 331.4 pg/mL (211-911) 05/19/20 12:27 Folate 12.77 ng/mL (7.3-26.0) 05/19/20 12:27 Procalcitonin < 0.05 ng/mL (<0.15) 05/18/20 08:00 TSH 1.530 mlU/mL (0.270-4.200) 05/19/20 12:27 Urine Color Yellow (Yellow) 05/18/20 Unknown Urine Turbidity Clear (Clear) 05/18/20 Unknown Urine pH 5.0 (5.0-7.0) 05/18/20 Unknown Ur Specific [place] 1.014 (1.003-1.030) 05/18/20 Unknown Urine Protein <15 mg/dl mg/dL (Negative) 05/18/20 Unknown Urine Glucose (UA) Neg mg/dL (Negative) 05/18/20 Unknown Urine Ketones Neg mg/dL (Negative) 05/18/20 Unknown Urine Blood Neg (Negative) 05/18/20 Unknown Urine Nitrite Neg (Negative) 05/18/20 Unknown Urine Bilirubin Neg (Negative) 05/18/20 Unknown Urine Urobilinogen < 2.0 mg/dL (<2.0) 05/18/20 Unknown Ur Leukocyte Esterase Neg (Negative) 05/18/20 Unknown Urine WBC (Auto) 1.0 /HPF (0.0-6.0) 05/18/20 Unknown Urine RBC (Auto) < 1.0 /HPF (0.0-6.0) 05/18/20 Unknown U Epithel Cells (Auto) < 1.0 /HPF (0-13.0) 05/18/20 Unknown Urine Mucus Few /HPF 05/18/20 Unknown Coronavirus (PCR) Negative (Negative) 05/18/20 11:00 Patel/IV: Voiding Method Condom Catheter IV Catheter Type [Left Upper Peripheral IV arm] IV Catheter Type [Left Forearm Peripheral IV ] IV Catheter Type [Right Wrist] Peripheral IV IV Catheter Type [Right Peripheral IV Forearm] Active Medications - Current Medications Current Medications: Generic Name Dose Route Start Last Admin Trade Name Freq PRN Reason Stop Dose Admin Acetaminophen 650 mg 05/17/20 22:34 Tylenol PO Q4H PRN Pain MILD(1-3)/Fever >100.5/MONTALVO Aspirin 81 mg 05/20/20 10:00 05/22/20 10:10 Halfprin Ec PO 81 mg QDAY WYATT Administration Buspirone HCl 10 mg 05/19/20 22:00 05/22/20 22:00 Buspar PO 10 mg BID WYATT Administration Citalopram Hydrobromide 5 mg 05/20/20 10:00 05/22/20 10:05 Celexa PO 5 mg QDAY WYATT Administration Donepezil HCl 10 mg 05/19/20 22:00 05/22/20 21:57 Aricept PO 10 mg QHS WYATT Administration Enoxaparin Sodium 40 mg 05/20/20 12:00 05/22/20 10:04 Enoxaparin SUB-Q 40 mg QDAY@1000 WYATT Administration Famotidine 10 mg 05/17/20 23:00 05/22/20 21:57 Pepcid PO 10 mg BID WYATT Administration Dextrose/Sodium Chloride 1,000 mls @ 125 mls/hr 05/18/20 07:35 05/23/20 06:52 D5/0.45ns IV 125 mls/hr DIRECT WYATT Administration Melatonin 5 mg 05/19/20 18:28 Melatonin PO QHS PRN Sleep Metoclopramide HCl 5 mg 05/17/20 22:45 05/21/20 10:15 Reglan IV 5 mg Q6H PRN Administration Nausea And Vomiting Metoprolol Tartrate 25 mg 05/19/20 22:00 05/22/20 21:59 Metoprolol PO Not Given BID YWATT Morphine Sulfate 2 mg 05/17/20 22:34 Morphine IV Q4H PRN Pain, Moderate (4-6) Ondansetron HCl 4 mg 05/17/20 22:34 05/21/20 05:20 Zofran IV 4 mg Q8H PRN Administration Nausea And Vomiting Risperidone 0.25 mg 05/20/20 22:00 05/22/20 21:58 Risperdal PO 0.25 mg BID WYATT Administration Sodium Chloride 10 ml 05/18/20 10:00 05/22/20 22:01 Sodium Chloride Flush Syringe 10 Ml IV 10 ml BID WYATT Administration Sodium Chloride 10 ml 05/17/20 22:34 05/20/20 09:20 Sodium Chloride Flush Syringe 10 Ml IV 10 ml PRN PRN Administration LINE FLUSH
[2020-05-23] MEDS: DONEPEZIL 10 MG TAB PO SCH (21:47)
[2020-05-24] MEDS: D5W/0.45% NACL 1,000 ML IV SCH ×3 (02:54→22:42)
[2020-05-24] MEDS: ENOXAPARIN 40 MG/0.4 ML INJ SUB-Q SCH (10:32)
[2020-05-24] MEDS: METOPROLOL TARTRATE 25 MG TAB PO SCH ×2 (10:33→22:33)
[2020-05-24] MEDS: FAMOTIDINE 10 MG TAB PO SCH ×2 (10:33→22:31)
[2020-05-24] MEDS: risperiDONE 0.25 MG TAB PO SCH ×2 (10:33→22:31)
[2020-05-24] MEDS: busPIRone 10 MG TAB PO SCH ×2 (10:34→22:31)
[2020-05-24] MEDS: CITALOPRAM 10 MG TAB PO SCH (10:34)
[2020-05-24] MEDS: ASPIRIN EC 81 MG TAB PO SCH (10:42)
--- NOTE | 2020-05-24 10:55 | Progress Note ---
Assessment and Plan Assessment and plan: (1) Acute metabolic encephalopathy Current Visit: Yes Status: Acute Plan to address problem: CT head - negative COVID-19 - negative Need to rule out encephalitis. LP ordered. CSF analysis will be sent. Neurology consulted. Needs to have an MRI of the brain (2) Hyperkalemia Current Visit: Yes Status: Acute Plan to address problem: Resolved (3) YANET (acute kidney injury) Current Visit: Yes Status: Acute Plan to address problem: Improved (4) Debility, unspecified Current Visit: Yes Status: Acute Plan to address problem: PT/OT pending (5) Dementia with behavioral disturbance Current Visit: Yes Status: Acute Plan to address problem: Risperidone twice daily Psychiatry following (5) DVT prophylaxis Current Visit: Yes Status: Acute Plan to address problem: On heparin and GI prophylaxis 05/19. Patient is still on IV antibiotics. He is alert and oriented x1. He is able to say time by looking at the clock however. Discussed case with [facility] RN at the [facility], who states that patient usually is able to have a normal conversation and is alert and oriented x2. Medication reviewed showed patient is not on any narcotics while in the [facility]. He has not had any temperature spike here. COVID-19 test performed was negative during this admission. His vital signs remained stable. Try to speak with brother on the phone but could not get him so I left a voice message. Still awaiting callback. 05/20. Spoke with RN at the nursing facility who states that patient usually alert and oriented x2 and is able to take a shower and have quite a normal conversation. He occasionally tells time when he looks at the clock. Patient has slight spike in temperature more than 100.1 Fahrenheit. Urinalysis showed no organisms. Procalcitonin was also negative. At this time I do not suspect a bacterial infection so will discontinue IV antibiotics. COVID-19 test already negative. Need to rule out viral illness at this time. Patient needs an LP- ordered LP and CSF analysis. Neurology to review as patient will need an MRI of the brain. His TSH, folate and vitamin B12 levels are all within normal limits. 05/21. He is awake, alert and oriented x1. Plan for LP today. Neurology to see. 05/22. F/U EEG for subclinical sz. Check MRI brain per Neuro 05/23/2020. Patient remains encephalopathic. Await follow-up EEG and MRI brain per neurology recommendations. 05/24/2020. Nursing reports difficulty obtaining consent for EEG and MRI. Check ammonia level. Neurology following. History Interval history: 80-year-old male with a medical history of dementia admitted with altered mental status. As per admission notes, patient was noted to be acting differently compared with baseline while in the [facility]. No reported fever or flulike illness. Due to concern for possible infection, patient was brought to the hospital for further evaluation Hospitalist Physical - Constitutional Vitals: Temp Pulse Resp BP Pulse Ox 98.4 F 69 16 141/70 100 05/24/20 05:35 05/24/20 10:33 05/24/20 05:35 05/24/20 10:33 05/24/20 05:35 General appearance: Present: mild distress, well-nourished - EENT Eyes: Present: PERRL, EOM intact ENT: hearing intact, clear oral mucosa, dentition normal - Neck Neck: Present: supple, normal ROM - Respiratory Respiratory effort: normal Respiratory: bilateral: CTA - Cardiovascular Rhythm: regular Heart Sounds: Present: S1 & S2. Absent: gallop, rub - Extremities Extremities: no ischemia, No edema, Full ROM - Abdominal General gastrointestinal: soft, non-tender, non-distended, normal bowel sounds - Integumentary Integumentary: Present: clear, warm, dry - Neurologic Neurologic: CNII-XII intact, moves all extremities Results - Labs CBC & Chem 7: 05/21/20 04:14 05/20/20 03:38 Labs: Laboratory Last Values WBC 5.2 K/mm3 (4.5-11.0) 05/21/20 04:14 RBC 3.24 M/mm3 (3.65-5.03) L 05/21/20 04:14 Hgb 10.9 gm/dl (11.8-15.2) L 05/21/20 04:14 Hct 31.9 % (35.5-45.6) L 05/21/20 04:14 MCV 99 fl (84-94) H 05/21/20 04:14 MCH 34 pg (28-32) H 05/21/20 04:14 MCHC 34 % (32-34) 05/21/20 04:14 RDW 12.9 % (13.2-15.2) L 05/21/20 04:14 Plt Count 96 K/mm3 (140-440) L 05/21/20 04:14 Lymph % (Auto) 19.9 % (13.4-35.0) 05/20/20 03:38 [place] % (Auto) 10.5 % (0.0-7.3) H 05/20/20 03:38 Eos % (Auto) 2.5 % (0.0-4.3) 05/20/20 03:38 Baso % (Auto) 0.3 % (0.0-1.8) 05/20/20 03:38 Lymph # (Auto) 1.2 K/mm3 (1.2-5.4) 05/20/20 03:38 [place] # (Auto) 0.7 K/mm3 (0.0-0.8) 05/20/20 03:38 Eos # (Auto) 0.2 K/mm3 (0.0-0.4) 05/20/20 03:38 Baso # (Auto) 0.0 K/mm3 (0.0-0.1) 05/20/20 03:38 Seg Neutrophils % 66.8 % (40.0-70.0) 05/20/20 03:38 Seg Neutrophils # 4.2 K/mm3 (1.8-7.7) 05/20/20 03:38 PT 14.2 Sec. (12.2-14.9) 05/21/20 04:14 INR 1.11 (0.87-1.13) 05/21/20 04:14 APTT 33.8 Sec. (24.2-36.6) 05/21/20 04:14 Sodium 144 mmol/L (137-145) 05/20/20 03:38 Potassium 4.6 mmol/L (3.6-5.0) 05/20/20 03:38 Chloride 109.2 mmol/L (98-107) H 05/20/20 03:38 Carbon Dioxide 24 mmol/L (22-30) 05/20/20 03:38 Anion Gap 15 mmol/L 05/20/20 03:38 BUN 9 mg/dL (9-20) 05/20/20 03:38 Creatinine 1.0 mg/dL (0.8-1.3) 05/20/20 03:38 Estimated GFR > 60 ml/min 05/20/20 03:38 BUN/Creatinine Ratio 9 % 05/20/20 03:38 Glucose 100 mg/dL (75-100) 05/20/20 03:38 Hemoglobin A1c 4.6 % (4-6) 05/17/20 16:19 Calcium 9.0 mg/dL (8.4-10.2) 05/20/20 03:38 Total Bilirubin 0.40 mg/dL (0.1-1.2) 05/20/20 03:38 AST 85 units/L (5-40) H 05/20/20 03:38 ALT 26 units/L (7-56) 05/20/20 03:38 Alkaline Phosphatase 95 units/L (35-129) 05/20/20 03:38 Total Protein 6.7 g/dL (6.3-8.2) 05/20/20 03:38 Albumin 3.6 g/dL (3.9-5) L 05/20/20 03:38 Albumin/Globulin Ratio 1.2 % 05/20/20 03:38 Vitamin B12 331.4 pg/mL (211-911) 05/19/20 12:27 Folate 12.77 ng/mL (7.3-26.0) 05/19/20 12:27 Procalcitonin < 0.05 ng/mL (<0.15) 05/18/20 08:00 TSH 1.530 mlU/mL (0.270-4.200) 05/19/20 12:27 Urine Color Yellow (Yellow) 05/18/20 Unknown Urine Turbidity Clear (Clear) 05/18/20 Unknown Urine pH 5.0 (5.0-7.0) 05/18/20 Unknown Ur Specific [place] 1.014 (1.003-1.030) 05/18/20 Unknown Urine Protein <15 mg/dl mg/dL (Negative) 05/18/20 Unknown Urine Glucose (UA) Neg mg/dL (Negative) 05/18/20 Unknown Urine Ketones Neg mg/dL (Negative) 05/18/20 Unknown Urine Blood Neg (Negative) 05/18/20 Unknown Urine Nitrite Neg (Negative) 05/18/20 Unknown Urine Bilirubin Neg (Negative) 05/18/20 Unknown Urine Urobilinogen < 2.0 mg/dL (<2.0) 05/18/20 Unknown Ur Leukocyte Esterase Neg (Negative) 05/18/20 Unknown Urine WBC (Auto) 1.0 /HPF (0.0-6.0) 05/18/20 Unknown Urine RBC (Auto) < 1.0 /HPF (0.0-6.0) 05/18/20 Unknown U Epithel Cells (Auto) < 1.0 /HPF (0-13.0) 05/18/20 Unknown Urine Mucus Few /HPF 05/18/20 Unknown Coronavirus (PCR) Negative (Negative) 05/18/20 11:00 Patel/IV: Voiding Method Condom Catheter IV Catheter Type [Left Upper Peripheral IV arm] IV Catheter Type [Left Forearm Peripheral IV ] IV Catheter Type [Right Wrist] Peripheral IV IV Catheter Type [Right Peripheral IV Forearm] Active Medications - Current Medications Current Medications: Generic Name Dose Route Start Last Admin Trade Name Freq PRN Reason Stop Dose Admin Acetaminophen 650 mg 05/17/20 22:34 Tylenol PO Q4H PRN Pain MILD(1-3)/Fever >100.5/MONTALVO Aspirin 81 mg 05/20/20 10:00 05/24/20 10:42 Halfprin Ec PO 81 mg QDAY WYATT Administration Buspirone HCl 10 mg 05/19/20 22:00 05/24/20 10:34 Buspar PO 10 mg BID WYATT Administration Citalopram Hydrobromide 5 mg 05/20/20 10:00 05/24/20 10:34 Celexa PO 5 mg QDAY WYATT Administration Donepezil HCl 10 mg 05/19/20 22:00 05/23/20 21:47 Aricept PO 10 mg QHS WYATT Administration Enoxaparin Sodium 40 mg 05/20/20 12:00 05/24/20 10:32 Enoxaparin SUB-Q 40 mg QDAY@1000 WYATT Administration Famotidine 10 mg 05/17/20 23:00 05/24/20 10:33 Pepcid PO 10 mg BID WYATT Administration Dextrose/Sodium Chloride 1,000 mls @ 125 mls/hr 05/18/20 07:35 05/24/20 10:32 D5/0.45ns IV 125 mls/hr DIRECT WYATT Administration Melatonin 5 mg 05/19/20 18:28 Melatonin PO QHS PRN Sleep Metoclopramide HCl 5 mg 05/17/20 22:45 05/21/20 10:15 Reglan IV 5 mg Q6H PRN Administration Nausea And Vomiting Metoprolol Tartrate 25 mg 05/19/20 22:00 05/24/20 10:33 Metoprolol PO 25 mg BID WYATT Administration Morphine Sulfate 2 mg 05/17/20 22:34 Morphine IV Q4H PRN Pain, Moderate (4-6) Ondansetron HCl 4 mg 05/17/20 22:34 05/21/20 05:20 Zofran IV 4 mg Q8H PRN Administration Nausea And Vomiting Risperidone 0.25 mg 05/20/20 22:00 05/24/20 10:33 Risperdal PO 0.25 mg BID WYATT Administration Sodium Chloride 10 ml 05/18/20 10:00 05/24/20 10:39 Sodium Chloride Flush Syringe 10 Ml IV 10 ml BID WYATT Administration Sodium Chloride 10 ml 05/17/20 22:34 05/20/20 09:20 Sodium Chloride Flush Syringe 10 Ml IV 10 ml PRN PRN Administration LINE FLUSH
[2020-05-24] MEDS: DONEPEZIL 10 MG TAB PO SCH (22:31)
[2020-05-25 06:40] LABS: Basophils % (Auto) 0.5 % (0.0-1.8); Eosinophils # (Auto) 0.2 K/mm3 (0.0-0.4); Eosinophils % (Auto) 3.4 % (0.0-4.3); Hematocrit 26.1 % (35.5-45.6); Hemoglobin 9.1 gm/dl (11.8-15.2); Lymphocytes # (Auto) 0.7 K/mm3 (1.2-5.4); Lymphocytes % (Auto) 14.7 % (13.4-35.0); Mean Corpuscular HGB Conc 35 % (32-34); Mean Corpuscular Volume 97 fl (84-94); Monocytes # (Auto) 0.6 K/mm3 (0.0-0.8); Monocytes % (Auto) 12.7 % (0.0-7.3); Platelet Count 111 K/mm3 (140-440); Red Blood Count 2.68 M/mm3 (3.65-5.03); Red Cell Distribution Width 12.5 % (13.2-15.2)
[2020-05-25] MEDS: D5W/0.45% NACL 1,000 ML IV SCH ×2 (06:46→14:40)
[2020-05-25 06:55] LABS: BUN/Creatinine Ratio 9; Blood Urea Nitrogen 9 mg/dL (9-20); Calcium 8.5 mg/dL (8.4-10.2); Hemolysis Index 1
--- NOTE | 2020-05-25 09:09 | Progress Note ---
Assessment and Plan Assessment and plan: (1) Acute metabolic encephalopathy Current Visit: Yes Status: Acute Plan to address problem: CT head - negative COVID-19 - negative Need to rule out encephalitis. LP ordered. CSF analysis will be sent. Neurology consulted. Needs to have an MRI of the brain (2) Hyperkalemia Current Visit: Yes Status: Acute Plan to address problem: Resolved (3) YANET (acute kidney injury) Current Visit: Yes Status: Acute Plan to address problem: Improved (4) Debility, unspecified Current Visit: Yes Status: Acute Plan to address problem: PT/OT pending (5) Dementia with behavioral disturbance Current Visit: Yes Status: Acute Plan to address problem: Risperidone twice daily Psychiatry following (5) DVT prophylaxis Current Visit: Yes Status: Acute Plan to address problem: On heparin and GI prophylaxis 05/19. Patient is still on IV antibiotics. He is alert and oriented x1. He is able to say time by looking at the clock however. Discussed case with patient's RN at the long-term, who states that patient usually is able to have a normal conversation and is alert and oriented x2. Medication reviewed showed patient is not on any narcotics while in the long-term. He has not had any temperature spike here. COVID-19 test performed was negative during this admission. His vital signs remained stable. Try to speak with brother on the phone but could not get him so I left a voice message. Still awaiting callback. 05/20. Spoke with RN at the nursing facility who states that patient usually alert and oriented x2 and is able to take a shower and have quite a normal conversation. He occasionally tells time when he looks at the clock. Patient has slight spike in temperature more than 100.1 Fahrenheit. Urinalysis showed no organisms. Procalcitonin was also negative. At this time I do not suspect a bacterial infection so will discontinue IV antibiotics. COVID-19 test already negative. Need to rule out viral illness at this time. Patient needs an LP- ordered LP and CSF analysis. Neurology to review as patient will need an MRI of the brain. His TSH, folate and vitamin B12 levels are all within normal limits. 05/21. He is awake, alert and oriented x1. Plan for LP today. Neurology to see. 05/22. F/U EEG for subclinical sz. Check MRI brain per Neuro 05/23/2020. Patient remains encephalopathic. Await follow-up EEG and MRI brain per neurology recommendations. 05/24/2020. Nursing reports difficulty obtaining consent for EEG and MRI. Check ammonia level. Neurology following. 05/25/2020. Nursing still reports difficulty obtaining consent for EEG, LP and MRI. Check with hospital administration with regards for two physicians signature for consent. Ammonia level within normal limits. Continue restraints for safety History Interval history: 80-year-old male with a medical history of dementia admitted with altered mental status. As per admission notes, patient was noted to be acting differently compared with baseline while in the long-term. No reported fever or flulike illness. Due to concern for possible infection, patient was brought to the hospital for further evaluation Hospitalist Physical - Constitutional Vitals: Temp Pulse Resp BP Pulse Ox 98.6 F 96 H 20 148/61 97 05/24/20 21:48 05/24/20 22:33 05/25/20 08:15 05/24/20 22:33 05/25/20 08:15 General appearance: Present: mild distress, well-nourished - EENT Eyes: Present: PERRL, EOM intact ENT: hearing intact, clear oral mucosa, dentition normal - Neck Neck: Present: supple, normal ROM - Respiratory Respiratory effort: normal Respiratory: bilateral: CTA - Cardiovascular Rhythm: regular Heart Sounds: Present: S1 & S2. Absent: gallop, rub - Extremities Extremities: no ischemia, No edema, Full ROM - Abdominal General gastrointestinal: soft, non-tender, non-distended, normal bowel sounds - Integumentary Integumentary: Present: clear, warm, dry - Neurologic Neurologic: CNII-XII intact, moves all extremities Results - Labs CBC & Chem 7: 05/25/20 04:27 05/25/20 04:27 Labs: Laboratory Last Values WBC 5.1 K/mm3 (4.5-11.0) 05/25/20 04:27 RBC 2.68 M/mm3 (3.65-5.03) L 05/25/20 04:27 Hgb 9.1 gm/dl (11.8-15.2) L 05/25/20 04:27 Hct 26.1 % (35.5-45.6) L 05/25/20 04:27 MCV 97 fl (84-94) H 05/25/20 04:27 MCH 34 pg (28-32) H 05/25/20 04:27 MCHC 35 % (32-34) H 05/25/20 04:27 RDW 12.5 % (13.2-15.2) L 05/25/20 04:27 Plt Count 111 K/mm3 (140-440) L 05/25/20 04:27 Lymph % (Auto) 14.7 % (13.4-35.0) 05/25/20 04:27 [place] % (Auto) 12.7 % (0.0-7.3) H 05/25/20 04:27 Eos % (Auto) 3.4 % (0.0-4.3) 05/25/20 04:27 Baso % (Auto) 0.5 % (0.0-1.8) 05/25/20 04:27 Lymph # (Auto) 0.7 K/mm3 (1.2-5.4) L 05/25/20 04:27 [place] # (Auto) 0.6 K/mm3 (0.0-0.8) 05/25/20 04:27 Eos # (Auto) 0.2 K/mm3 (0.0-0.4) 05/25/20 04:27 Baso # (Auto) 0.0 K/mm3 (0.0-0.1) 05/25/20 04:27 Seg Neutrophils % 68.7 % (40.0-70.0) 05/25/20 04:27 Seg Neutrophils # 3.5 K/mm3 (1.8-7.7) 05/25/20 04:27 PT 14.2 Sec. (12.2-14.9) 05/21/20 04:14 INR 1.11 (0.87-1.13) 05/21/20 04:14 APTT 33.8 Sec. (24.2-36.6) 05/21/20 04:14 Sodium 141 mmol/L (137-145) 05/25/20 04:27 Potassium 3.5 mmol/L (3.6-5.0) L 05/25/20 04:27 Chloride 107.9 mmol/L (98-107) H 05/25/20 04:27 Carbon Dioxide 27 mmol/L (22-30) 05/25/20 04:27 Anion Gap 10 mmol/L 05/25/20 04:27 BUN 9 mg/dL (9-20) 05/25/20 04:27 Creatinine 1.0 mg/dL (0.8-1.3) 05/25/20 04:27 Estimated GFR > 60 ml/min 05/25/20 04:27 BUN/Creatinine Ratio 9 % 05/25/20 04:27 Glucose 118 mg/dL (75-100) H 05/25/20 04:27 Hemoglobin A1c 4.6 % (4-6) 05/17/20 16:19 Calcium 8.5 mg/dL (8.4-10.2) 05/25/20 04:27 Total Bilirubin 0.40 mg/dL (0.1-1.2) 05/20/20 03:38 AST 85 units/L (5-40) H 05/20/20 03:38 ALT 26 units/L (7-56) 05/20/20 03:38 Alkaline Phosphatase 95 units/L (35-129) 05/20/20 03:38 Ammonia 50.0 umol/L (25-60) 05/24/20 10:59 Total Protein 6.7 g/dL (6.3-8.2) 05/20/20 03:38 Albumin 3.6 g/dL (3.9-5) L 05/20/20 03:38 Albumin/Globulin Ratio 1.2 % 05/20/20 03:38 Vitamin B12 331.4 pg/mL (211-911) 05/19/20 12:27 Folate 12.77 ng/mL (7.3-26.0) 05/19/20 12:27 Procalcitonin < 0.05 ng/mL (<0.15) 05/18/20 08:00 TSH 1.530 mlU/mL (0.270-4.200) 05/19/20 12:27 Urine Color Yellow (Yellow) 05/18/20 Unknown Urine Turbidity Clear (Clear) 05/18/20 Unknown Urine pH 5.0 (5.0-7.0) 05/18/20 Unknown Ur Specific [place] 1.014 (1.003-1.030) 05/18/20 Unknown Urine Protein <15 mg/dl mg/dL (Negative) 05/18/20 Unknown Urine Glucose (UA) Neg mg/dL (Negative) 05/18/20 Unknown Urine Ketones Neg mg/dL (Negative) 05/18/20 Unknown Urine Blood Neg (Negative) 05/18/20 Unknown Urine Nitrite Neg (Negative) 05/18/20 Unknown Urine Bilirubin Neg (Negative) 05/18/20 Unknown Urine Urobilinogen < 2.0 mg/dL (<2.0) 05/18/20 Unknown Ur Leukocyte Esterase Neg (Negative) 05/18/20 Unknown Urine WBC (Auto) 1.0 /HPF (0.0-6.0) 05/18/20 Unknown Urine RBC (Auto) < 1.0 /HPF (0.0-6.0) 05/18/20 Unknown U Epithel Cells (Auto) < 1.0 /HPF (0-13.0) 05/18/20 Unknown Urine Mucus Few /HPF 05/18/20 Unknown Coronavirus (PCR) Negative (Negative) 05/18/20 11:00 Patel/IV: Voiding Method Condom Catheter IV Catheter Type [Left Upper Peripheral IV arm] IV Catheter Type [Left Forearm Peripheral IV ] IV Catheter Type [Right Wrist] Peripheral IV IV Catheter Type [Right Peripheral IV Forearm] Active Medications - Current Medications Current Medications: Generic Name Dose Route Start Last Admin Trade Name Freq PRN Reason Stop Dose Admin Acetaminophen 650 mg 05/17/20 22:34 Tylenol PO Q4H PRN Pain MILD(1-3)/Fever >100.5/MONTALVO Aspirin 81 mg 05/20/20 10:00 05/24/20 10:42 Halfprin Ec PO 81 mg QDAY WYATT Administration Buspirone HCl 10 mg 05/19/20 22:00 05/24/20 22:31 Buspar PO 10 mg BID WYATT Administration Citalopram Hydrobromide 5 mg 05/20/20 10:00 05/24/20 10:34 Celexa PO 5 mg QDAY WYATT Administration Donepezil HCl 10 mg 05/19/20 22:00 05/24/20 22:31 Aricept PO 10 mg QHS WYATT Administration Enoxaparin Sodium 40 mg 05/20/20 12:00 05/24/20 10:32 Enoxaparin SUB-Q 40 mg QDAY@1000 WYATT Administration Famotidine 10 mg 05/17/20 23:00 11/26/20 22:31 Pepcid PO 10 mg BID WYATT Administration Dextrose/Sodium Chloride 1,000 mls @ 125 mls/hr 05/18/20 07:35 05/25/20 06:46 D5/0.45ns IV 125 mls/hr DIRECT WYATT Administration Melatonin 5 mg 05/19/20 18:28 Melatonin PO QHS PRN Sleep Metoclopramide HCl 5 mg 05/17/20 22:45 05/21/20 10:15 Reglan IV 5 mg Q6H PRN Administration Nausea And Vomiting Metoprolol Tartrate 25 mg 05/19/20 22:00 05/24/20 22:33 Metoprolol PO 25 mg BID WYATT Administration Morphine Sulfate 2 mg 05/17/20 22:34 Morphine IV Q4H PRN Pain, Moderate (4-6) Ondansetron HCl 4 mg 05/17/20 22:34 05/21/20 05:20 Zofran IV 4 mg Q8H PRN Administration Nausea And Vomiting Risperidone 0.25 mg 05/20/20 22:00 05/24/20 22:31 Risperdal PO 0.25 mg BID WYATT Administration Sodium Chloride 10 ml 05/18/20 10:00 05/24/20 22:33 Sodium Chloride Flush Syringe 10 Ml IV 10 ml BID WYATT Administration Sodium Chloride 10 ml 05/17/20 22:34 05/20/20 09:20 Sodium Chloride Flush Syringe 10 Ml IV 10 ml PRN PRN Administration LINE FLUSH
[2020-05-25] MEDS: FAMOTIDINE 10 MG TAB PO SCH ×2 (10:07→22:21)
[2020-05-25] MEDS: ENOXAPARIN 40 MG/0.4 ML INJ SUB-Q SCH (10:07)
[2020-05-25] MEDS: ASPIRIN EC 81 MG TAB PO SCH (10:07)
[2020-05-25] MEDS: risperiDONE 0.25 MG TAB PO SCH ×2 (10:07→22:21)
[2020-05-25] MEDS: CITALOPRAM 10 MG TAB PO SCH (10:07)
[2020-05-25] MEDS: METOPROLOL TARTRATE 25 MG TAB PO SCH ×2 (10:07→22:27)
[2020-05-25] MEDS: busPIRone 10 MG TAB PO SCH ×2 (10:08→22:21)
[2020-05-25] MEDS: DONEPEZIL 10 MG TAB PO SCH (22:21)
[2020-05-26] MEDS: D5W/0.45% NACL 1,000 ML IV SCH ×3 (02:14→23:25)
--- NOTE | 2020-05-26 08:13 | Progress Note ---
Assessment and Plan Assessment and plan: (1) Acute metabolic encephalopathy Current Visit: Yes Status: Acute Plan to address problem: CT head - negative COVID-19 - negative Need to rule out encephalitis. LP ordered. CSF analysis will be sent. Neurology consulted. Needs to have an MRI of the brain (2) Hyperkalemia Current Visit: Yes Status: Acute Plan to address problem: Resolved (3) YANET (acute kidney injury) Current Visit: Yes Status: Acute Plan to address problem: Improved (4) Debility, unspecified Current Visit: Yes Status: Acute Plan to address problem: PT/OT pending (5) Dementia with behavioral disturbance Current Visit: Yes Status: Acute Plan to address problem: Risperidone twice daily Psychiatry following (5) DVT prophylaxis Current Visit: Yes Status: Acute Plan to address problem: On heparin and GI prophylaxis 05/19. Patient is still on IV antibiotics. He is alert and oriented x1. He is able to say time by looking at the clock however. Discussed case with patient's RN at the shelter, who states that patient usually is able to have a normal conversation and is alert and oriented x2. Medication reviewed showed patient is not on any narcotics while in the shelter. He has not had any temperature spike here. COVID-19 test performed was negative during this admission. His vital signs remained stable. Try to speak with brother on the phone but could not get him so I left a voice message. Still awaiting callback. 05/20. Spoke with RN at the nursing facility who states that patient usually alert and oriented x2 and is able to take a shower and have quite a normal conversation. He occasionally tells time when he looks at the clock. Patient has slight spike in temperature more than 100.1 Fahrenheit. Urinalysis showed no organisms. Procalcitonin was also negative. At this time I do not suspect a bacterial infection so will discontinue IV antibiotics. COVID-19 test already negative. Need to rule out viral illness at this time. Patient needs an LP- ordered LP and CSF analysis. Neurology to review as patient will need an MRI of the brain. His TSH, folate and vitamin B12 levels are all within normal limits. 05/21. He is awake, alert and oriented x1. Plan for LP today. Neurology to see. 05/22. F/U EEG for subclinical sz. Check MRI brain per Neuro 05/23/2020. Patient remains encephalopathic. Await follow-up EEG and MRI brain per neurology recommendations. 05/24/2020. Nursing reports difficulty obtaining consent for EEG and MRI. Check ammonia level. Neurology following. 05/25/2020. Nursing still reports difficulty obtaining consent for EEG, LP and MRI. Check with hospital administration with regards for two physicians signature for consent. Ammonia level within normal limits. Continue restraints for safety 05/18/2020. Consents have been obtained. Await EEG, LP and MRI. Continue r estraints for safety. History Interval history: 80-year-old male with a medical history of dementia admitted with altered mental status. As per admission notes, patient was noted to be acting differently compared with baseline while in the shelter. No reported fever or flulike illness. Due to concern for possible infection, patient was brought to the hospital for further evaluation Hospitalist Physical - Constitutional Vitals: Temp Pulse Resp BP Pulse Ox 98.8 F 62 12 135/37 98 05/26/20 05:06 05/26/20 05:06 05/26/20 05:06 05/26/20 05:06 05/26/20 05:06 General appearance: Present: mild distress, well-nourished - EENT Eyes: Present: PERRL, EOM intact ENT: hearing intact, clear oral mucosa, dentition normal - Neck Neck: Present: supple, normal ROM - Respiratory Respiratory effort: normal Respiratory: bilateral: CTA - Cardiovascular Rhythm: regular Heart Sounds: Present: S1 & S2. Absent: gallop, rub - Extremities Extremities: no ischemia, No edema, Full ROM - Abdominal General gastrointestinal: soft, non-tender, non-distended, normal bowel sounds - Integumentary Integumentary: Present: clear, warm, dry - Neurologic Neurologic: CNII-XII intact, moves all extremities Results - Labs CBC & Chem 7: 05/25/20 04:27 05/25/20 04:27 Labs: Laboratory Last Values WBC 5.1 K/mm3 (4.5-11.0) 05/25/20 04:27 RBC 2.68 M/mm3 (3.65-5.03) L 05/25/20 04:27 Hgb 9.1 gm/dl (11.8-15.2) L 05/25/20 04:27 Hct 26.1 % (35.5-45.6) L 05/25/20 04:27 MCV 97 fl (84-94) H 05/25/20 04:27 MCH 34 pg (28-32) H 05/25/20 04:27 MCHC 35 % (32-34) H 05/25/20 04:27 RDW 12.5 % (13.2-15.2) L 05/25/20 04:27 Plt Count 111 K/mm3 (140-440) L 05/25/20 04:27 Lymph % (Auto) 14.7 % (13.4-35.0) 05/25/20 04:27 [place] % (Auto) 12.7 % (0.0-7.3) H 05/25/20 04:27 Eos % (Auto) 3.4 % (0.0-4.3) 05/25/20 04:27 Baso % (Auto) 0.5 % (0.0-1.8) 05/25/20 04:27 Lymph # (Auto) 0.7 K/mm3 (1.2-5.4) L 05/25/20 04:27 [place] # (Auto) 0.6 K/mm3 (0.0-0.8) 05/25/20 04:27 Eos # (Auto) 0.2 K/mm3 (0.0-0.4) 05/25/20 04:27 Baso # (Auto) 0.0 K/mm3 (0.0-0.1) 05/25/20 04:27 Seg Neutrophils % 68.7 % (40.0-70.0) 05/25/20 04:27 Seg Neutrophils # 3.5 K/mm3 (1.8-7.7) 05/25/20 04:27 PT 14.2 Sec. (12.2-14.9) 05/21/20 04:14 INR 1.11 (0.87-1.13) 05/21/20 04:14 APTT 33.8 Sec. (24.2-36.6) 05/21/20 04:14 Sodium 141 mmol/L (137-145) 05/25/20 04:27 Potassium 3.5 mmol/L (3.6-5.0) L 05/25/20 04:27 Chloride 107.9 mmol/L (98-107) H 05/25/20 04:27 Carbon Dioxide 27 mmol/L (22-30) 05/25/20 04:27 Anion Gap 10 mmol/L 05/25/20 04:27 BUN 9 mg/dL (9-20) 05/25/20 04:27 Creatinine 1.0 mg/dL (0.8-1.3) 05/25/20 04:27 Estimated GFR > 60 ml/min 05/25/20 04:27 BUN/Creatinine Ratio 9 % 05/25/20 04:27 Glucose 118 mg/dL (75-100) H 05/25/20 04:27 Hemoglobin A1c 4.6 % (4-6) 05/17/20 16:19 Calcium 8.5 mg/dL (8.4-10.2) 05/25/20 04:27 Total Bilirubin 0.40 mg/dL (0.1-1.2) 05/20/20 03:38 AST 85 units/L (5-40) H 05/20/20 03:38 ALT 26 units/L (7-56) 05/20/20 03:38 Alkaline Phosphatase 95 units/L (35-129) 05/20/20 03:38 Ammonia 50.0 umol/L (25-60) 05/24/20 10:59 Total Protein 6.7 g/dL (6.3-8.2) 05/20/20 03:38 Albumin 3.6 g/dL (3.9-5) L 05/20/20 03:38 Albumin/Globulin Ratio 1.2 % 05/20/20 03:38 Vitamin B12 331.4 pg/mL (211-911) 05/19/20 12:27 Folate 12.77 ng/mL (7.3-26.0) 05/19/20 12:27 Procalcitonin < 0.05 ng/mL (<0.15) 05/18/20 08:00 TSH 1.530 mlU/mL (0.270-4.200) 05/19/20 12:27 Urine Color Yellow (Yellow) 05/18/20 Unknown Urine Turbidity Clear (Clear) 05/18/20 Unknown Urine pH 5.0 (5.0-7.0) 05/18/20 Unknown Ur Specific [place] 1.014 (1.003-1.030) 05/18/20 Unknown Urine Protein <15 mg/dl mg/dL (Negative) 05/18/20 Unknown Urine Glucose (UA) Neg mg/dL (Negative) 05/18/20 Unknown Urine Ketones Neg mg/dL (Negative) 05/18/20 Unknown Urine Blood Neg (Negative) 05/18/20 Unknown Urine Nitrite Neg (Negative) 05/18/20 Unknown Urine Bilirubin Neg (Negative) 05/18/20 Unknown Urine Urobilinogen < 2.0 mg/dL (<2.0) 05/18/20 Unknown Ur Leukocyte Esterase Neg (Negative) 05/18/20 Unknown Urine WBC (Auto) 1.0 /HPF (0.0-6.0) 05/18/20 Unknown Urine RBC (Auto) < 1.0 /HPF (0.0-6.0) 05/18/20 Unknown U Epithel Cells (Auto) < 1.0 /HPF (0-13.0) 05/18/20 Unknown Urine Mucus Few /HPF 05/18/20 Unknown Coronavirus (PCR) Negative (Negative) 05/18/20 11:00 Patel/IV: Voiding Method Condom Catheter IV Catheter Type [Left Upper Peripheral IV arm] IV Catheter Type [Left Forearm Peripheral IV ] IV Catheter Type [Right Wrist] Peripheral IV IV Catheter Type [Right Peripheral IV Forearm] Active Medications - Current Medications Current Medications: Generic Name Dose Route Start Last Admin Trade Name Freq PRN Reason Stop Dose Admin Acetaminophen 650 mg 05/17/20 22:34 Tylenol PO Q4H PRN Pain MILD(1-3)/Fever >100.5/MONTALVO Aspirin 81 mg 05/20/20 10:00 05/25/20 10:07 Halfprin Ec PO 81 mg QDAY WYATT Administration Buspirone HCl 10 mg 05/19/20 22:00 05/25/20 22:21 Buspar PO 10 mg BID WYATT Administration Citalopram Hydrobromide 5 mg 05/20/20 10:00 05/25/20 10:07 Celexa PO 5 mg QDAY WYATT Administration Donepezil HCl 10 mg 05/19/20 22:00 05/25/20 22:21 Aricept PO 10 mg QHS WYATT Administration Enoxaparin Sodium 40 mg 05/20/20 12:00 05/25/20 10:07 Enoxaparin SUB-Q 40 mg QDAY@1000 WYATT Administration Famotidine 10 mg 05/17/20 23:00 05/25/20 22:21 Pepcid PO 10 mg BID WYATT Administration Dextrose/Sodium Chloride 1,000 mls @ 125 mls/hr 05/18/20 07:35 05/26/20 02:14 D5/0.45ns IV 125 mls/hr DIRECT WYATT Administration Melatonin 5 mg 05/19/20 18:28 Melatonin PO QHS PRN Sleep Metoclopramide HCl 5 mg 05/17/20 22:45 05/21/20 10:15 Reglan IV 5 mg Q6H PRN Administration Nausea And Vomiting Metoprolol Tartrate 25 mg 05/19/20 22:00 05/25/20 22:27 Metoprolol PO Not Given BID WYATT Morphine Sulfate 2 mg 05/17/20 22:34 Morphine IV Q4H PRN Pain, Moderate (4-6) Ondansetron HCl 4 mg 05/17/20 22:34 05/21/20 05:20 Zofran IV 4 mg Q8H PRN Administration Nausea And Vomiting Risperidone 0.25 mg 05/20/20 22:00 05/25/20 22:21 Risperdal PO 0.25 mg BID WYATT Administration Sodium Chloride 10 ml 05/18/20 10:00 05/25/20 22:22 Sodium Chloride Flush Syringe 10 Ml IV 10 ml BID WYATT Administration Sodium Chloride 10 ml 05/17/20 22:34 05/20/20 09:20 Sodium Chloride Flush Syringe 10 Ml IV 10 ml PRN PRN Administration LINE FLUSH Nutrition/Malnutrition Assess - Dietary Evaluation Nutrition/Malnutrition Findings: Nutrition Notes Start: 05/25/20 12:10 Freq: Status: Active Protocol: Document 05/25/20 12:10 LM (Rec: 05/25/20 12:15 LM [id number]) Nutrition Notes Need for Assessment generated from: LOS Initial or Follow up Assessment Current Diagnosis Acute Kidney Injury, Hypertension,Stroke Other Pertinent Diagnosis Dementia, encephalopathy Current Diet [facility] soft Labs/Tests K 3.5 Pertinent Medications D5NS at 125ml/hr Height 5 ft 4 in Weight 74.5 kg [place] Body Weight (kg) 59.09 BMI 28.1 Weight Status Overweight Subjective/Other Information Screen for LOS. Unable to reach pt. Per chart pt is confused. Pt with 0-50% intakes in chart. Burn Absent Trauma Absent Difficulty In Chewing Minimum of two criteria No physical signs of malnutrition #1 Nutrition Diagnosis Inadequate oral intake Etiology dementia, chronic illness As Evidenced by Signs and Symptoms pt with 0-50% intakes in chart Is patient on ventilator? No Is Patient Ambulatory and/or Out of Bed No REE-([facility]-confined to bed) [phone] Calculation Used for Recommendations [facility] Additional Notes Protein: 60-80g (0.8-1.2g/kg) Fluid: 1ml/kcal Nutrition Intervention Change Diet Order: Continue Add Supplement/Snack (indicate name/kcal Ensure Enlive daily /protein ) Provides kCal: 350 Provides Protein (gm) 20 Goal #1 Meet at least 75% of energy and protein needs Anticipated Discharge Needs: unable to determine at this time Follow-Up By: 05/29/20 Additional Comments F/U for PO/ONS intakes
[2020-05-26] MEDS: busPIRone 10 MG TAB PO SCH ×2 (09:22→23:21)
[2020-05-26] MEDS: ASPIRIN EC 81 MG TAB PO SCH (09:22)
[2020-05-26] MEDS: CITALOPRAM 10 MG TAB PO SCH (09:22)
[2020-05-26] MEDS: risperiDONE 0.25 MG TAB PO SCH ×2 (09:22→22:07)
[2020-05-26] MEDS: FAMOTIDINE 10 MG TAB PO SCH ×2 (09:22→22:07)
[2020-05-26] MEDS: ENOXAPARIN 40 MG/0.4 ML INJ SUB-Q SCH (09:23)
[2020-05-26] MEDS: METOPROLOL TARTRATE 25 MG TAB PO SCH ×2 (10:37→23:28)
[2020-05-26] MEDS: MELATONIN 5 MG TAB PO PRN (22:07)
[2020-05-26] MEDS: DONEPEZIL 10 MG TAB PO SCH (23:21)
[2020-05-27] MEDS: ENOXAPARIN 40 MG/0.4 ML INJ SUB-Q SCH ×2 (08:55→10:39)
[2020-05-27] MEDS: CITALOPRAM 10 MG TAB PO SCH ×2 (08:56→10:38)
[2020-05-27] MEDS: ASPIRIN EC 81 MG TAB PO SCH ×2 (08:56→10:37)
[2020-05-27] MEDS: risperiDONE 0.25 MG TAB PO SCH ×3 (08:56→21:55)
[2020-05-27] MEDS: busPIRone 10 MG TAB PO SCH ×3 (08:56→21:55)
[2020-05-27] MEDS: FAMOTIDINE 10 MG TAB PO SCH ×3 (08:56→21:55)
[2020-05-27] MEDS: METOPROLOL TARTRATE 25 MG TAB PO SCH ×3 (08:57→23:15)
--- NOTE | 2020-05-27 09:36 | Progress Note ---
Assessment and Plan Assessment and plan: (1) Acute metabolic encephalopathy Current Visit: Yes Status: Acute Plan to address problem: CT head - negative COVID-19 - negative Need to rule out encephalitis. LP ordered. CSF analysis will be sent. Neurology consulted. Needs to have an MRI of the brain (2) Hyperkalemia Current Visit: Yes Status: Acute Plan to address problem: Resolved (3) YANET (acute kidney injury) Current Visit: Yes Status: Acute Plan to address problem: Improved (4) Debility, unspecified Current Visit: Yes Status: Acute Plan to address problem: PT/OT pending (5) Dementia with behavioral disturbance Current Visit: Yes Status: Acute Plan to address problem: Risperidone twice daily Psychiatry following (5) DVT prophylaxis Current Visit: Yes Status: Acute Plan to address problem: On heparin and GI prophylaxis 05/19. Patient is still on IV antibiotics. He is alert and oriented x1. He is able to say time by looking at the clock however. [facility], who states that patient usually is able to have a normal conversation and is alert and oriented x2. Medication reviewed showed patient is not on any narcotics [facility] in the [facility]. He has not had any temperature spike here. COVID-19 test performed was negative during this admission. His vital signs remained stable. Try to speak with brother on the phone but could not get him so I left a voice message. Still awaiting callback. 05/20. Spoke with RN at the nursing facility who states that patient usually alert and oriented x2 and is able to take a shower and have quite a normal conversation. He occasionally tells time when he looks at the clock. Patient has slight spike in temperature more than 100.1 Fahrenheit. Urinalysis showed no organisms. Procalcitonin was also negative. At this time I do not suspect a bacterial infection so will discontinue IV antibiotics. COVID-19 test already negative. Need to rule out viral illness at this time. Patient needs an LP- ordered LP and CSF analysis. Neurology to review as patient will need an MRI of the brain. His TSH, folate and vitamin B12 levels are all within normal limits. 05/21. He is awake, alert and oriented x1. Plan for LP today. Neurology to see. 05/22. F/U EEG for subclinical sz. Check MRI brain per Neuro 05/23/2020. Patient remains encephalopathic. Await follow-up EEG and MRI brain per neurology recommendations. 05/24/2020. Nursing reports difficulty obtaining consent for EEG and MRI. Check ammonia level. Neurology following. 05/25/2020. Nursing still reports difficulty obtaining consent for EEG, LP and MRI. Check with hospital administration with regards for two physicians signature for consent. Ammonia level within normal limits. Continue restraints for safety 05/26/2020. Consents have been obtained. Await EEG, LP and MRI. Continue r estraints for safety. 05/27/2020. Await EEG, LP and MRI. Neurology following. Continue restraints for safety. History Interval history: 80-year-old male with a medical history of dementia admitted with altered mental status. As per admission notes, patient was noted to be acting differently compared with baseline [facility] in the [facility]. No reported fever or flulike illness. Due to concern for possible infection, patient was brought to the hospital for further evaluation Hospitalist Physical - Constitutional Vitals: Temp Pulse Resp BP Pulse Ox 97.0 F L 70 18 144/59 100 05/27/20 06:45 05/27/20 08:57 05/27/20 06:45 05/27/20 08:57 05/27/20 06:45 General appearance: Present: mild distress, well-nourished - EENT Eyes: Present: PERRL, EOM intact ENT: hearing intact, clear oral mucosa, dentition normal - Neck Neck: Present: supple, normal ROM - Respiratory Respiratory effort: normal Respiratory: bilateral: CTA - Cardiovascular Rhythm: regular Heart Sounds: Present: S1 & S2. Absent: gallop, rub - Extremities Extremities: no ischemia, No edema, Full ROM - Abdominal General gastrointestinal: soft, non-tender, non-distended, normal bowel sounds - Integumentary Integumentary: Present: clear, warm, dry - Neurologic Neurologic: CNII-XII intact, moves all extremities Results - Labs CBC & Chem 7: 05/25/20 04:27 05/25/20 04:27 Labs: Laboratory Last Values WBC 5.1 K/mm3 (4.5-11.0) 05/25/20 04:27 RBC 2.68 M/mm3 (3.65-5.03) L 05/25/20 04:27 Hgb 9.1 gm/dl (11.8-15.2) L 05/25/20 04:27 Hct 26.1 % (35.5-45.6) L 05/25/20 04:27 MCV 97 fl (84-94) H 05/25/20 04:27 MCH 34 pg (28-32) H 05/25/20 04:27 MCHC 35 % (32-34) H 05/25/20 04:27 RDW 12.5 % (13.2-15.2) L 05/25/20 04:27 Plt Count 111 K/mm3 (140-440) L 05/25/20 04:27 Lymph % (Auto) 14.7 % (13.4-35.0) 05/25/20 04:27 [place] % (Auto) 12.7 % (0.0-7.3) H 05/25/20 04:27 Eos % (Auto) 3.4 % (0.0-4.3) 05/25/20 04:27 Baso % (Auto) 0.5 % (0.0-1.8) 05/25/20 04:27 Lymph # (Auto) 0.7 K/mm3 (1.2-5.4) L 05/25/20 04:27 [place] # (Auto) 0.6 K/mm3 (0.0-0.8) 05/25/20 04:27 Eos # (Auto) 0.2 K/mm3 (0.0-0.4) 05/25/20 04:27 Baso # (Auto) 0.0 K/mm3 (0.0-0.1) 05/25/20 04:27 Seg Neutrophils % 68.7 % (40.0-70.0) 05/25/20 04:27 Seg Neutrophils # 3.5 K/mm3 (1.8-7.7) 05/25/20 04:27 PT 14.2 Sec. (12.2-14.9) 05/21/20 04:14 INR 1.11 (0.87-1.13) 05/21/20 04:14 APTT 33.8 Sec. (24.2-36.6) 05/21/20 04:14 Sodium 141 mmol/L (137-145) 05/25/20 04:27 Potassium 3.5 mmol/L (3.6-5.0) L 05/25/20 04:27 Chloride 107.9 mmol/L (98-107) H 05/25/20 04:27 Carbon Dioxide 27 mmol/L (22-30) 05/25/20 04:27 Anion Gap 10 mmol/L 05/25/20 04:27 BUN 9 mg/dL (9-20) 05/25/20 04:27 Creatinine 1.0 mg/dL (0.8-1.3) 05/25/20 04:27 Estimated GFR > 60 ml/min 05/25/20 04:27 BUN/Creatinine Ratio 9 % 05/25/20 04:27 Glucose 118 mg/dL (75-100) H 05/25/20 04:27 Hemoglobin A1c 4.6 % (4-6) 05/17/20 16:19 Calcium 8.5 mg/dL (8.4-10.2) 05/25/20 04:27 Total Bilirubin 0.40 mg/dL (0.1-1.2) 05/20/20 03:38 AST 85 units/L (5-40) H 05/20/20 03:38 ALT 26 units/L (7-56) 05/20/20 03:38 Alkaline Phosphatase 95 units/L (35-129) 05/20/20 03:38 Ammonia 50.0 umol/L (25-60) 05/24/20 10:59 Total Protein 6.7 g/dL (6.3-8.2) 05/20/20 03:38 Albumin 3.6 g/dL (3.9-5) L 05/20/20 03:38 Albumin/Globulin Ratio 1.2 % 05/20/20 03:38 Vitamin B12 331.4 pg/mL (211-911) 05/19/20 12:27 Folate 12.77 ng/mL (7.3-26.0) 05/19/20 12:27 Procalcitonin < 0.05 ng/mL (<0.15) 05/18/20 08:00 TSH 1.530 mlU/mL (0.270-4.200) 05/19/20 12:27 Urine Color Yellow (Yellow) 05/18/20 Unknown Urine Turbidity Clear (Clear) 05/18/20 Unknown Urine pH 5.0 (5.0-7.0) 05/18/20 Unknown Ur Specific [place] 1.014 (1.003-1.030) 05/18/20 Unknown Urine Protein <15 mg/dl mg/dL (Negative) 05/18/20 Unknown Urine Glucose (UA) Neg mg/dL (Negative) 05/18/20 Unknown Urine Ketones Neg mg/dL (Negative) 05/18/20 Unknown Urine Blood Neg (Negative) 05/18/20 Unknown Urine Nitrite Neg (Negative) 05/18/20 Unknown Urine Bilirubin Neg (Negative) 05/18/20 Unknown Urine Urobilinogen < 2.0 mg/dL (<2.0) 05/18/20 Unknown Ur Leukocyte Esterase Neg (Negative) 05/18/20 Unknown Urine WBC (Auto) 1.0 /HPF (0.0-6.0) 05/18/20 Unknown Urine RBC (Auto) < 1.0 /HPF (0.0-6.0) 05/18/20 Unknown U Epithel Cells (Auto) < 1.0 /HPF (0-13.0) 05/18/20 Unknown Urine Mucus Few /HPF 05/18/20 Unknown Coronavirus (PCR) Negative (Negative) 05/18/20 11:00 Patel/IV: Voiding Method Condom Catheter IV Catheter Type [Left Upper Peripheral IV arm] IV Catheter Type [Left Forearm Peripheral IV ] IV Catheter Type [Right Wrist] Peripheral IV IV Catheter Type [Right Peripheral IV Forearm] Active Medications - Current Medications Current Medications: Generic Name Dose Route Start Last Admin Trade Name Freq PRN Reason Stop Dose Admin Acetaminophen 650 mg 05/17/20 22:34 Tylenol PO Q4H PRN Pain MILD(1-3)/Fever >100.5/MONTALVO Aspirin 81 mg 05/20/20 10:00 05/27/20 08:56 Halfprin Ec PO 81 mg QDAY WYATT Administration Buspirone HCl 10 mg 05/19/20 22:00 05/27/20 08:56 Buspar PO 10 mg BID WYATT Administration Citalopram Hydrobromide 5 mg 05/20/20 10:00 05/27/20 08:56 Celexa PO 5 mg QDAY WYATT Administration Donepezil HCl 10 mg 05/19/20 22:00 05/26/20 23:21 Aricept PO 10 mg QHS WYATT Administration Enoxaparin Sodium 40 mg 05/20/20 12:00 05/27/20 08:55 Enoxaparin SUB-Q 40 mg QDAY@1000 WYATT Administration Famotidine 10 mg 05/17/20 23:00 05/27/20 08:56 Pepcid PO 10 mg BID WYATT Administration Dextrose/Sodium Chloride 1,000 mls @ 125 mls/hr 05/18/20 07:35 05/26/20 23:25 D5/0.45ns IV 125 mls/hr DIRECT WYATT Administration Melatonin 5 mg 05/19/20 18:28 05/26/20 22:07 Melatonin PO 5 mg QHS PRN Administration Sleep Metoclopramide HCl 5 mg 05/17/20 22:45 05/21/20 10:15 Reglan IV 5 mg Q6H PRN Administration Nausea And Vomiting Metoprolol Tartrate 25 mg 05/19/20 22:00 05/27/20 08:57 Metoprolol PO 25 mg BID WYATT Administration Morphine Sulfate 2 mg 05/17/20 22:34 Morphine IV Q4H PRN Pain, Moderate (4-6) Ondansetron HCl 4 mg 05/17/20 22:34 05/21/20 05:20 Zofran IV 4 mg Q8H PRN Administration Nausea And Vomiting Risperidone 0.25 mg 05/20/20 22:00 05/27/20 08:56 Risperdal PO 0.25 mg BID WYATT Administration Sodium Chloride 10 ml 05/18/20 10:00 05/26/20 22:08 Sodium Chloride Flush Syringe 10 Ml IV 10 ml BID WYATT Administration Sodium Chloride 10 ml 05/17/20 22:34 05/20/20 09:20 Sodium Chloride Flush Syringe 10 Ml IV 10 ml PRN PRN Administration LINE FLUSH Nutrition/Malnutrition Assess - Dietary Evaluation Nutrition/Malnutrition Findings: Nutrition Notes Start: 05/25/20 1 2:10 Freq: Status: Active Protocol: Document 05/25/20 12:10 LM (Rec: 05/25/20 12:15 LM [id number]) Nutrition Notes Need for Assessment generated from: LOS Initial or Follow up Assessment Current Diagnosis Acute Kidney Injury, Hypertension,Stroke Other Pertinent Diagnosis Dementia, encephalopathy Current Diet Mech soft Labs/Tests K 3.5 Pertinent Medications D5NS at 125ml/hr Height 5 ft 4 in Weight 74.5 kg [place] Body Weight (kg) 59.09 BMI 28.1 Weight Status Overweight Subjective/Other Information Screen for LOS. Unable to reach pt. Per chart pt is confused. Pt with 0-50% intakes in chart. Burn Absent Trauma Absent Difficulty In Chewing Minimum of two criteria No physical signs of malnutrition #1 Nutrition Diagnosis Inadequate oral intake Etiology dementia, chronic illness As Evidenced by Signs and Symptoms pt with 0-50% intakes in chart Is patient on ventilator? No Is Patient Ambulatory and/or Out of Bed No REE-([facility]-confined to bed) [phone] Calculation Used for Recommendations [facility] Additional Notes Protein: 60-80g (0.8-1.2g/kg) Fluid: 1ml/kcal Nutrition Intervention Change Diet Order: Continue Add Supplement/Snack (indicate name/kcal Ensure Enlive daily /protein ) Provides kCal: 350 Provides Protein (gm) 20 Goal #1 Meet at least 75% of energy and protein needs Anticipated Discharge Needs: unable to determine at this time Follow-Up By: 05/29/20 Additional Comments F/U for PO/ONS intakes
[2020-05-27] MEDS: D5W/0.45% NACL 1,000 ML IV SCH (12:06)
[2020-05-27] MEDS: DONEPEZIL 10 MG TAB PO SCH (21:56)
[2020-05-28] MEDS: D5W/0.45% NACL 1,000 ML IV SCH ×3 (00:36→21:02)
[2020-05-28 04:56] LABS: Basophils % (Auto) 0.5 % (0.0-1.8); Eosinophils # (Auto) 0.2 K/mm3 (0.0-0.4); Eosinophils % (Auto) 3.1 % (0.0-4.3); Hemoglobin 9.4 gm/dl (11.8-15.2); Lymphocytes # (Auto) 0.7 K/mm3 (1.2-5.4); Mean Corpuscular HGB Conc 35 % (32-34); Mean Corpuscular Volume 96 fl (84-94); Monocytes # (Auto) 0.5 K/mm3 (0.0-0.8); Monocytes % (Auto) 9.3 % (0.0-7.3); Platelet Count 165 K/mm3 (140-440); Red Blood Count 2.82 M/mm3 (3.65-5.03); Red Cell Distribution Width 12.8 % (13.2-15.2)
[2020-05-28 05:15] LABS: BUN/Creatinine Ratio 14; Blood Urea Nitrogen 11 mg/dL (9-20); Calcium 8.4 mg/dL (8.4-10.2); Hemolysis Index 12
--- NOTE | 2020-05-28 09:34 | Progress Note ---
Assessment and Plan Assessment and plan: (1) Acute metabolic encephalopathy Current Visit: Yes Status: Acute Plan to address problem: CT head - negative COVID-19 - negative Need to rule out encephalitis. LP ordered. CSF analysis will be sent. Neurology consulted. Needs to have an MRI of the brain (2) Hyperkalemia Current Visit: Yes Status: Acute Plan to address problem: Resolved (3) YANET (acute kidney injury) Current Visit: Yes Status: Acute Plan to address problem: Improved (4) Debility, unspecified Current Visit: Yes Status: Acute Plan to address problem: PT/OT pending (5) Dementia with behavioral disturbance Current Visit: Yes Status: Acute Plan to address problem: Risperidone twice daily Psychiatry following (5) DVT prophylaxis Current Visit: Yes Status: Acute Plan to address problem: On heparin and GI prophylaxis 05/19. Patient is still on IV antibiotics. He is alert and oriented x1. He is able to say time by looking at the clock however. Discussed case with [facility]'s RN at the shelter, who states that patient usually is able to have a normal conversation and is alert and oriented x2. Medication reviewed showed patient is not on any narcotics while in the shelter. He has not had any temperature spike here. COVID-19 test performed was negative during this admission. His vital signs remained stable. Try to speak with brother on the phone but could not get him so I left a voice message. Still awaiting callback. 05/20. Spoke with RN at the nursing facility who states that patient usually alert and oriented x2 and is able to take a shower and have quite a normal conversation. He occasionally tells time when he looks at the clock. Patient has slight spike in temperature more than 100.1 Fahrenheit. Urinalysis showed no organisms. Procalcitonin was also negative. At this time I do not suspect a bacterial infection so will discontinue IV antibiotics. COVID-19 test already negative. Need to rule out viral illness at this time. Patient needs an LP- ordered LP and CSF analysis. Neurology to review as patient will need an MRI of the brain. His TSH, folate and vitamin B12 levels are all within normal limits. 05/21. He is awake, alert and oriented x1. Plan for LP today. Neurology to see. 05/22. F/U EEG for subclinical sz. Check MRI brain per Neuro 05/23/2020. Patient remains encephalopathic. Await follow-up EEG and MRI brain per neurology recommendations. 05/24/2020. Nursing reports difficulty obtaining consent for EEG and MRI. Check ammonia level. Neurology following. 05/25/2020. Nursing still reports difficulty obtaining consent for EEG, LP and MRI. Check with hospital administration with regards for two physicians signature for consent. Ammonia level within normal limits. Continue restraints for safety 05/26/2020. Consents have been obtained. Await EEG, LP and MRI. Continue r estraints for safety. 05/27/2020. Await EEG, LP and MRI. Neurology following. Continue restraints for safety. 05/28/2020. Patient remains confused/encephalopathic. Await EEG, LP and MRI. Neurology following. Continue restraints for safety. History Interval history: 80-year-old male with a medical history of dementia admitted with altered mental status. As per admission notes, patient was noted to be acting differently compared with baseline while in the shelter. No reported fever or flulike illness. Due to concern for possible infection, patient was brought to the hospital for further evaluation Hospitalist Physical - Constitutional Vitals: Temp Pulse Resp BP Pulse Ox 98 F 52 L 18 138/65 92 05/28/20 06:03 05/28/20 06:03 05/28/20 06:03 05/28/20 06:03 05/28/20 06:03 General appearance: Present: mild distress, well-nourished - EENT Eyes: Present: PERRL, EOM intact ENT: hearing intact, clear oral mucosa, dentition normal - Neck Neck: Present: supple, normal ROM - Respiratory Respiratory effort: normal Respiratory: bilateral: CTA - Cardiovascular Rhythm: regular Heart Sounds: Present: S1 & S2. Absent: gallop, rub - Extremities Extremities: no ischemia, No edema, Full ROM - Abdominal General gastrointestinal: soft, non-tender, non-distended, normal bowel sounds - Integumentary Integumentary: Present: clear, warm, dry - Neurologic Neurologic: CNII-XII intact, moves all extremities Results - Labs CBC & Chem 7: 05/28/20 03:58 05/28/20 03:58 Labs: Laboratory Last Values WBC 5.9 K/mm3 (4.5-11.0) 05/28/20 03:58 RBC 2.82 M/mm3 (3.65-5.03) L 05/28/20 03:58 Hgb 9.4 gm/dl (11.8-15.2) L 05/28/20 03:58 Hct 27.0 % (35.5-45.6) L 05/28/20 03:58 MCV 96 fl (84-94) H 05/28/20 03:58 MCH 33 pg (28-32) H 05/28/20 03:58 MCHC 35 % (32-34) H 05/28/20 03:58 RDW 12.8 % (13.2-15.2) L 05/28/20 03:58 Plt Count 165 K/mm3 (140-440) 05/28/20 03:58 Lymph % (Auto) 12.0 % (13.4-35.0) L 05/28/20 03:58 [place] % (Auto) 9.3 % (0.0-7.3) H 05/28/20 03:58 Eos % (Auto) 3.1 % (0.0-4.3) 05/28/20 03:58 Baso % (Auto) 0.5 % (0.0-1.8) 05/28/20 03:58 Lymph # (Auto) 0.7 K/mm3 (1.2-5.4) L 05/28/20 03:58 [place] # (Auto) 0.5 K/mm3 (0.0-0.8) 05/28/20 03:58 Eos # (Auto) 0.2 K/mm3 (0.0-0.4) 05/28/20 03:58 Baso # (Auto) 0.0 K/mm3 (0.0-0.1) 05/28/20 03:58 Seg Neutrophils % 75.1 % (40.0-70.0) H 05/28/20 03:58 Seg Neutrophils # 4.4 K/mm3 (1.8-7.7) 05/28/20 03:58 PT 14.2 Sec. (12.2-14.9) 05/21/20 04:14 INR 1.11 (0.87-1.13) 05/21/20 04:14 APTT 33.8 Sec. (24.2-36.6) 05/21/20 04:14 Sodium 146 mmol/L (137-145) H 05/28/20 03:58 Potassium 3.8 mmol/L (3.6-5.0) 05/28/20 03:58 Chloride 106.8 mmol/L (98-107) 05/28/20 03:58 Carbon Dioxide 27 mmol/L (22-30) 05/28/20 03:58 Anion Gap 16 mmol/L 05/28/20 03:58 BUN 11 mg/dL (9-20) 05/28/20 03:58 Creatinine 0.8 mg/dL (0.8-1.3) 05/28/20 03:58 Estimated GFR > 60 ml/min 05/28/20 03:58 BUN/Creatinine Ratio 14 % 05/28/20 03:58 Glucose 122 mg/dL (75-100) H 05/28/20 03:58 Hemoglobin A1c 4.6 % (4-6) 05/17/20 16:19 Calcium 8.4 mg/dL (8.4-10.2) 05/28/20 03:58 Total Bilirubin 0.40 mg/dL (0.1-1.2) 05/20/20 03:38 AST 85 units/L (5-40) H 05/20/20 03:38 ALT 26 units/L (7-56) 05/20/20 03:38 Alkaline Phosphatase 95 units/L (35-129) 05/20/20 03:38 Ammonia 50.0 umol/L (25-60) 05/24/20 10:59 Total Protein 6.7 g/dL (6.3-8.2) 05/20/20 03:38 Albumin 3.6 g/dL (3.9-5) L 05/20/20 03:38 Albumin/Globulin Ratio 1.2 % 05/20/20 03:38 Vitamin B12 331.4 pg/mL (211-911) 05/19/20 12:27 Folate 12.77 ng/mL (7.3-26.0) 05/19/20 12:27 Procalcitonin < 0.05 ng/mL (<0.15) 05/18/20 08:00 TSH 1.530 mlU/mL (0.270-4.200) 05/19/20 12:27 Urine Color Yellow (Yellow) 05/18/20 Unknown Urine Turbidity Clear (Clear) 05/18/20 Unknown Urine pH 5.0 (5.0-7.0) 05/18/20 Unknown Ur Specific [place] 1.014 (1.003-1.030) 05/18/20 Unknown Urine Protein <15 mg/dl mg/dL (Negative) 05/18/20 Unknown Urine Glucose (UA) Neg mg/dL (Negative) 05/18/20 Unknown Urine Ketones Neg mg/dL (Negative) 05/18/20 Unknown Urine Blood Neg (Negative) 05/18/20 Unknown Urine Nitrite Neg (Negative) 05/18/20 Unknown Urine Bilirubin Neg (Negative) 05/18/20 Unknown Urine Urobilinogen < 2.0 mg/dL (<2.0) 05/18/20 Unknown Ur Leukocyte Esterase Neg (Negative) 05/18/20 Unknown Urine WBC (Auto) 1.0 /HPF (0.0-6.0) 05/18/20 Unknown Urine RBC (Auto) < 1.0 /HPF (0.0-6.0) 05/18/20 Unknown U Epithel Cells (Auto) < 1.0 /HPF (0-13.0) 05/18/20 Unknown Urine Mucus Few /HPF 05/18/20 Unknown Coronavirus (PCR) Negative (Negative) 05/18/20 11:00 Patel/IV: Voiding Method Condom Catheter IV Catheter Type [Left Upper Peripheral IV arm] IV Catheter Type [Left Forearm Peripheral IV ] IV Catheter Type [Right Wrist] Peripheral IV IV Catheter Type [Right Peripheral IV Forearm] Active Medications - Current Medications Current Medications: Generic Name Dose Route Start Last Admin Trade Name Freq PRN Reason Stop Dose Admin Acetaminophen 650 mg 05/17/20 22:34 Tylenol PO Q4H PRN Pain MILD(1-3)/Fever >100.5/MONTALVO Aspirin 81 mg 05/20/20 10:00 05/27/20 10:37 Halfprin Ec PO Not Given QDAY WYATT Buspirone HCl 10 mg 05/19/20 22:00 05/27/20 21:55 Buspar PO 10 mg BID WYATT Administration Citalopram Hydrobromide 5 mg 05/20/20 10:00 05/27/20 10:38 Celexa PO Not Given QDAY WYATT Donepezil HCl 10 mg 05/19/20 22:00 05/27/20 21:56 Aricept PO 10 mg QHS WYATT Administration Enoxaparin Sodium 40 mg 05/20/20 12:00 05/27/20 10:39 Enoxaparin SUB-Q 40 mg QDAY@1000 WYATT Administration Famotidine 10 mg 05/17/20 23:00 05/27/20 21:55 Pepcid PO 10 mg BID WYATT Administration Dextrose/Sodium Chloride 1,000 mls @ 125 mls/hr 05/18/20 07:35 05/28/20 00:36 D5/0.45ns IV 125 mls/hr DIRECT WYATT Administration Melatonin 5 mg 05/19/20 18:28 05/26/20 22:07 Melatonin PO 5 mg QHS PRN Administration Sleep Metoclopramide HCl 5 mg 05/17/20 22:45 05/21/20 10:15 Reglan IV 5 mg Q6H PRN Administration Nausea And Vomiting Metoprolol Tartrate 25 mg 05/19/20 22:00 05/27/20 23:15 Metoprolol PO 25 mg BID WYATT Administration Morphine Sulfate 2 mg 05/17/20 22:34 Morphine IV Q4H PRN Pain, Moderate (4-6) Ondansetron HCl 4 mg 05/17/20 22:34 05/21/20 05:20 Zofran IV 4 mg Q8H PRN Administration Nausea And Vomiting Risperidone 0.25 mg 05/20/20 22:00 05/27/20 21:55 Risperdal PO 0.25 mg BID WYATT Administration Sodium Chloride 10 ml 05/18/20 10:00 05/27/20 23:15 Sodium Chloride Flush Syringe 10 Ml IV 10 ml BID WYATT Administration Sodium Chloride 10 ml 05/17/20 22:34 05/20/20 09:20 Sodium Chloride Flush Syringe 10 Ml IV 10 ml PRN PRN Administration LINE FLUSH Nutrition/Malnutrition Assess - Dietary Evaluation Nutrition/Malnutrition Findings: Nutrition Notes Start: 05/25/20 12:10 Freq: Status: Active Protocol: Document 05/25/20 12:10 LM (Rec: 05/25/20 12:15 LM [id number]) Nutrition Notes Need for Assessment generated from: LOS Initial or Follow up Assessment Current Diagnosis Acute Kidney Injury, Hypertension,Stroke Other Pertinent Diagnosis Dementia, encephalopathy Current Diet [facility] soft Labs/Tests K 3.5 Pertinent Medications D5NS at 125ml/hr Height 5 ft 4 in Weight 74.5 kg [place] Body Weight (kg) 59.09 BMI 28.1 Weight Status Overweight Subjective/Other Information Screen for LOS. Unable to reach pt. Per chart pt is confused. Pt with 0-50% intakes in chart. Burn Absent Trauma Absent Difficulty In Chewing Minimum of two criteria No physical signs of malnutrition #1 Nutrition Diagnosis Inadequate oral intake Etiology dementia, chronic illness As Evidenced by Signs and Symptoms pt with 0-50% intakes in chart Is patient on ventilator? No Is Patient Ambulatory and/or Out of Bed No REE-([facility]-confined to bed) [phone] Calculation Used for Recommendations [facility] Additional Notes Protein: 60-80g (0.8-1.2g/kg) Fluid: 1ml/kcal Nutrition Intervention Change Diet Order: Continue Add Supplement/Snack (indicate name/kcal Ensure Enlive daily /protein ) Provides kCal: 350 Provides Protein (gm) 20 Goal #1 Meet at least 75% of energy and protein needs Anticipated Discharge Needs: unable to determine at this time Follow-Up By: 05/29/20 Additional Comments F/U for PO/ONS intakes
[2020-05-28] MEDS: METOPROLOL TARTRATE 25 MG TAB PO SCH ×2 (10:00→21:07)
[2020-05-28] MEDS: ASPIRIN EC 81 MG TAB PO SCH (10:00)
[2020-05-28] MEDS: ENOXAPARIN 40 MG/0.4 ML INJ SUB-Q SCH (10:00)
[2020-05-28] MEDS: CITALOPRAM 10 MG TAB PO SCH (10:00)
[2020-05-28] MEDS: FAMOTIDINE 10 MG TAB PO SCH ×2 (10:00→21:05)
[2020-05-28] MEDS: busPIRone 10 MG TAB PO SCH ×2 (10:00→21:05)
[2020-05-28] MEDS: risperiDONE 0.25 MG TAB PO SCH ×2 (10:00→21:05)
[2020-05-28] MEDS: DONEPEZIL 10 MG TAB PO SCH (21:05)
[2020-05-29 05:30] LABS: Basophils % (Auto) 0.9 % (0.0-1.8); Eosinophils # (Auto) 0.3 K/mm3 (0.0-0.4); Eosinophils % (Auto) 4.8 % (0.0-4.3); Hematocrit 26.9 % (35.5-45.6); Hemoglobin 9.4 gm/dl (11.8-15.2); Lymphocytes # (Auto) 1.2 K/mm3 (1.2-5.4); Lymphocytes % (Auto) 22.2 % (13.4-35.0); Mean Corpuscular HGB Conc 35 % (32-34); Mean Corpuscular Volume 96 fl (84-94); Monocytes # (Auto) 0.5 K/mm3 (0.0-0.8); Monocytes % (Auto) 8.7 % (0.0-7.3); Platelet Count 171 K/mm3 (140-440); Red Blood Count 2.81 M/mm3 (3.65-5.03); Red Cell Distribution Width 12.7 % (13.2-15.2)
[2020-05-29 06:16] LABS: BUN/Creatinine Ratio 14; Blood Urea Nitrogen 13 mg/dL (9-20); Calcium 8.8 mg/dL (8.4-10.2); Hemolysis Index 2
[2020-05-29] MEDS ORDERED: POTASSIUM CHLORIDE ER 20 MEQ TAB PO NR (07:30)
[2020-05-29] MEDS: ASPIRIN EC 81 MG TAB PO SCH (10:14)
[2020-05-29] MEDS: ENOXAPARIN 40 MG/0.4 ML INJ SUB-Q SCH (10:14)
[2020-05-29] MEDS: FAMOTIDINE 10 MG TAB PO SCH ×2 (10:15→21:32)
[2020-05-29] MEDS: risperiDONE 0.25 MG TAB PO SCH ×2 (10:15→21:32)
[2020-05-29] MEDS: busPIRone 10 MG TAB PO SCH ×2 (10:15→21:32)
[2020-05-29] MEDS: METOPROLOL TARTRATE 25 MG TAB PO SCH ×2 (10:15→21:40)
[2020-05-29] MEDS: CITALOPRAM 10 MG TAB PO SCH (10:16)
[2020-05-29] MEDS: D5W/0.45% NACL 1,000 ML IV SCH ×2 (10:21→19:29)
--- NOTE | 2020-05-29 11:35 | Progress Note ---
Assessment and Plan Assessment and plan: (1) Acute metabolic encephalopathy Current Visit: Yes Status: Acute Plan to address problem: CT head - negative COVID-19 - negative Need to rule out encephalitis. LP ordered. CSF analysis will be sent. Neurology consulted. Needs to have an MRI of the brain (2) Hyperkalemia Current Visit: Yes Status: Acute Plan to address problem: Resolved (3) YANET (acute kidney injury) Current Visit: Yes Status: Acute Plan to address problem: Improved (4) Debility, unspecified Current Visit: Yes Status: Acute Plan to address problem: PT/OT pending (5) Dementia with behavioral disturbance Current Visit: Yes Status: Acute Plan to address problem: Risperidone twice daily Psychiatry following (5) DVT prophylaxis Current Visit: Yes Status: Acute Plan to address problem: On heparin and GI prophylaxis 05/19. Patient is still on IV antibiotics. He is alert and oriented x1. He is able to say time by looking at the clock however. Discussed case with [facility] RN at [facility], who states that patient usually is able to have a normal conversation and is alert and oriented x2. Medication reviewed showed patient is not on any narcotics while in the [facility]. He has not had any temperature spike here. COVID-19 test performed was negative during this admission. His vital signs remained stable. Try to speak with brother on the phone but could not get him so I left a voice message. Still awaiting callback. 05/20. Spoke with RN at the nursing facility who states that patient usually alert and oriented x2 and is able to take a shower and have quite a normal conversation. He occasionally tells time when he looks at the clock. Patient has slight spike in temperature more than 100.1 Fahrenheit. Urinalysis showed no organisms. Procalcitonin was also negative. At this time I do not suspect a bacterial infection so will discontinue IV antibiotics. COVID-19 test already negative. Need to rule out viral illness at this time. Patient needs an LP- ordered LP and CSF analysis. Neurology to review as patient will need an MRI of the brain. His TSH, folate and vitamin B12 levels are all within normal limits. 05/21. He is awake, alert and oriented x1. Plan for LP today. Neurology to see. 05/22. F/U EEG for subclinical sz. Check MRI brain per Neuro 05/23/2020. Patient remains encephalopathic. Await follow-up EEG and MRI brain per neurology recommendations. 05/24/2020. Nursing reports difficulty obtaining consent for EEG and MRI. Check ammonia level. Neurology following. 05/25/2020. Nursing still reports difficulty obtaining consent for EEG, LP and MRI. Check with hospital administration with regards for two physicians signature for consent. Ammonia level within normal limits. Continue restraints for safety 05/26/2020. Consents have been obtained. Await EEG, LP and MRI. Continue restraints for safety. 05/27/2020. Await EEG, LP and MRI. Neurology following. Continue restraints for safety. 05/28/2020. Patient remains confused/encephalopathic. Await EEG, LP and MRI. Neurology following. Continue restraints for safety. 05/29. Awaiting studies to evaluate his confusion. History Interval history: 80-year-old male with a medical history of dementia admitted with altered mental status. As per admission notes, patient was noted to be acting differently compared with baseline while in the [facility]. No reported fever or flulike illness. Due to concern for possible infection, patient was brought to the hospital for further evaluation Hospitalist Physical - Constitutional Vitals: Temp Pulse Resp BP Pulse Ox 98.5 F 62 16 149/47 99 05/29/20 05:09 05/29/20 05:09 05/29/20 05:09 05/29/20 05:09 05/29/20 05:09 General appearance: Present: mild distress, well-nourished Results - Labs CBC & Chem 7: 05/29/20 04:59 05/29/20 04:59 Labs: Laboratory Last Values WBC 5.2 K/mm3 (4.5-11.0) 05/29/20 04:59 RBC 2.81 M/mm3 (3.65-5.03) L 05/29/20 04:59 Hgb 9.4 gm/dl (11.8-15.2) L 05/29/20 04:59 Hct 26.9 % (35.5-45.6) L 05/29/20 04:59 MCV 96 fl (84-94) H 05/29/20 04:59 MCH 33 pg (28-32) H 05/29/20 04:59 MCHC 35 % (32-34) H 05/29/20 04:59 RDW 12.7 % (13.2-15.2) L 05/29/20 04:59 Plt Count 171 K/mm3 (140-440) 05/29/20 04:59 Lymph % (Auto) 22.2 % (13.4-35.0) 05/29/20 04:59 [place] % (Auto) 8.7 % (0.0-7.3) H 05/29/20 04:59 Eos % (Auto) 4.8 % (0.0-4.3) H 05/29/20 04:59 Baso % (Auto) 0.9 % (0.0-1.8) 05/29/20 04:59 Lymph # (Auto) 1.2 K/mm3 (1.2-5.4) 05/29/20 04:59 [place] # (Auto) 0.5 K/mm3 (0.0-0.8) 05/29/20 04:59 Eos # (Auto) 0.3 K/mm3 (0.0-0.4) 05/29/20 04:59 Baso # (Auto) 0.0 K/mm3 (0.0-0.1) 05/29/20 04:59 Seg Neutrophils % 63.4 % (40.0-70.0) 05/29/20 04:59 Seg Neutrophils # 3.3 K/mm3 (1.8-7.7) 05/29/20 04:59 PT 14.2 Sec. (12.2-14.9) 05/21/20 04:14 INR 1.11 (0.87-1.13) 05/21/20 04:14 APTT 33.8 Sec. (24.2-36.6) 05/21/20 04:14 Sodium 142 mmol/L (137-145) 05/29/20 04:59 Potassium 3.4 mmol/L (3.6-5.0) L 05/29/20 04:59 Chloride 107.2 mmol/L (98-107) H 05/29/20 04:59 Carbon Dioxide 29 mmol/L (22-30) 05/29/20 04:59 Anion Gap 9 mmol/L 05/29/20 04:59 BUN 13 mg/dL (9-20) 05/29/20 04:59 Creatinine 0.9 mg/dL (0.8-1.3) 05/29/20 04:59 Estimated GFR > 60 ml/min 05/29/20 04:59 BUN/Creatinine Ratio 14 % 05/29/20 04:59 Glucose 104 mg/dL (75-100) H 05/29/20 04:59 Hemoglobin A1c 4.6 % (4-6) 05/17/20 16:19 Calcium 8.8 mg/dL (8.4-10.2) 05/29/20 04:59 Total Bilirubin 0.40 mg/dL (0.1-1.2) 05/20/20 03:38 AST 85 units/L (5-40) H 05/20/20 03:38 ALT 26 units/L (7-56) 05/20/20 03:38 Alkaline Phosphatase 95 units/L (35-129) 05/20/20 03:38 Ammonia 50.0 umol/L (25-60) 05/24/20 10:59 Total Protein 6.7 g/dL (6.3-8.2) 05/20/20 03:38 Albumin 3.6 g/dL (3.9-5) L 05/20/20 03:38 Albumin/Globulin Ratio 1.2 % 05/20/20 03:38 Vitamin B12 331.4 pg/mL (211-911) 05/19/20 12:27 Folate 12.77 ng/mL (7.3-26.0) 05/19/20 12:27 Procalcitonin < 0.05 ng/mL (<0.15) 05/18/20 08:00 TSH 1.530 mlU/mL (0.270-4.200) 05/19/20 12:27 Urine Color Yellow (Yellow) 05/18/20 Unknown Urine Turbidity Clear (Clear) 05/18/20 Unknown Urine pH 5.0 (5.0-7.0) 05/18/20 Unknown Ur Specific [place] 1.014 (1.003-1.030) 05/18/20 Unknown Urine Protein <15 mg/dl mg/dL (Negative) 05/18/20 Unknown Urine Glucose (UA) Neg mg/dL (Negative) 05/18/20 Unknown Urine Ketones Neg mg/dL (Negative) 05/18/20 Unknown Urine Blood Neg (Negative) 05/18/20 Unknown Urine Nitrite Neg (Negative) 05/18/20 Unknown Urine Bilirubin Neg (Negative) 05/18/20 Unknown Urine Urobilinogen < 2.0 mg/dL (<2.0) 05/18/20 Unknown Ur Leukocyte Esterase Neg (Negative) 05/18/20 Unknown Urine WBC (Auto) 1.0 /HPF (0.0-6.0) 05/18/20 Unknown Urine RBC (Auto) < 1.0 /HPF (0.0-6.0) 05/18/20 Unknown U Epithel Cells (Auto) < 1.0 /HPF (0-13.0) 05/18/20 Unknown Urine Mucus Few /HPF 05/18/20 Unknown Coronavirus (PCR) Negative (Negative) 05/18/20 11:00 Patel/IV: Voiding Method Condom Catheter IV Catheter Type [Left Upper Peripheral IV arm] IV Catheter Type [Left Forearm Peripheral IV ] IV Catheter Type [Right Wrist] Peripheral IV IV Catheter Type [Right Peripheral IV Forearm] Active Medications - Current Medications Current Medications: Generic Name Dose Route Start Last Admin Trade Name Freq PRN Reason Stop Dose Admin Acetaminophen 650 mg 05/17/20 22:34 Tylenol PO Q4H PRN Pain MILD(1-3)/Fever >100.5/MONTALVO Aspirin 81 mg 05/20/20 10:00 05/29/20 10:14 Halfprin Ec PO 81 mg QDAY WYATT Administration Buspirone HCl 10 mg 05/19/20 22:00 05/29/20 10:15 Buspar PO 10 mg BID WYATT Administration Citalopram Hydrobromide 5 mg 05/20/20 10:00 05/29/20 10:16 Celexa PO 5 mg QDAY WYATT Administration Donepezil HCl 10 mg 05/19/20 22:00 05/28/20 21:05 Aricept PO 10 mg QHS WYATT Administration Enoxaparin Sodium 40 mg 05/20/20 12:00 05/29/20 10:14 Enoxaparin SUB-Q 40 mg QDAY@1000 WYATT Administration Famotidine 10 mg 05/17/20 23:00 05/29/20 10:15 Pepcid PO 10 mg BID WYATT Administration Dextrose/Sodium Chloride 1,000 mls @ 125 mls/hr 05/18/20 07:35 05/29/20 10:21 D5/0.45ns IV 125 mls/hr DIRECT WYATT Administration Melatonin 5 mg 05/19/20 18:28 05/26/20 22:07 Melatonin PO 5 mg QHS PRN Administration Sleep Metoclopramide HCl 5 mg 05/17/20 22:45 05/21/20 10:15 Reglan IV 5 mg Q6H PRN Administration Nausea And Vomiting Metoprolol Tartrate 25 mg 05/19/20 22:00 05/29/20 10:15 Metoprolol PO 25 mg BID WYATT Administration Morphine Sulfate 2 mg 05/17/20 22:34 Morphine IV Q4H PRN Pain, Moderate (4-6) Ondansetron HCl 4 mg 05/17/20 22:34 05/21/20 05:20 Zofran IV 4 mg Q8H PRN Administration Nausea And Vomiting Potassium Chloride 40 meq 05/29/20 07:30 05/29/20 10:15 K-Dur PO 05/29/20 14:00 40 meq ONCE@0730 NR Administration Risperidone 0.25 mg 05/20/20 22:00 05/29/20 10:15 Risperdal PO 0.25 mg BID WYATT Administration Sodium Chloride 10 ml 05/18/20 10:00 05/29/20 10:14 Sodium Chloride Flush Syringe 10 Ml IV 10 ml BID WYATT Administration Sodium Chloride 10 ml 05/17/20 22:34 05/20/20 09:20 Sodium Chloride Flush Syringe 10 Ml IV 10 ml PRN PRN Administration LINE FLUSH Nutrition/Malnutrition Assess - Dietary Evaluation Nutrition/Malnutrition Findings: Nutrition Notes Start: 05/25/20 12:10 Freq: Status: Active Protocol: Document 05/25/20 12:10 LM (Rec: 05/25/20 12:15 LM [id number]) Nutrition Notes Need for Assessment generated from: LOS Initial or Follow up Assessment Current Diagnosis Acute Kidney Injury, Hypertension,Stroke Other Pertinent Diagnosis Dementia, encephalopathy Current Diet [facility] soft Labs/Tests K 3.5 Pertinent Medications D5NS at 125ml/hr Height 5 ft 4 in Weight 74.5 kg [place] Body Weight (kg) 59.09 BMI 28.1 Weight Status Overweight Subjective/Other Information Screen for LOS. Unable to reach pt. Per chart pt is confused. Pt with 0-50% intakes in chart. Burn Absent Trauma Absent Difficulty In Chewing Minimum of two criteria No physical signs of malnutrition #1 Nutrition Diagnosis Inadequate oral intake Etiology dementia, chronic illness As Evidenced by Signs and Symptoms pt with 0-50% intakes in chart Is patient on ventilator? No Is Patient Ambulatory and/or Out of Bed No REE-([facility]-confined to bed) [phone] Calculation Used for Recommendations [facility] Additional Notes Protein: 60-80g (0.8-1.2g/kg) Fluid: 1ml/kcal Nutrition Intervention Change Diet Order: Continue Add Supplement/Snack (indicate name/kcal Ensure Enlive daily /protein ) Provides kCal: 350 Provides Protein (gm) 20 Goal #1 Meet at least 75% of energy and protein needs Anticipated Discharge Needs: unable to determine at this time Follow-Up By: 05/29/20 Additional Comments F/U for PO/ONS intakes
[2020-05-29] MEDS: DONEPEZIL 10 MG TAB PO SCH (21:32)
[2020-05-30] MEDS: D5W/0.45% NACL 1,000 ML IV SCH ×3 (03:31→22:30)
[2020-05-30 06:34] LABS: Basophils % (Auto) 0.5 % (0.0-1.8); Eosinophils # (Auto) 0.3 K/mm3 (0.0-0.4); Eosinophils % (Auto) 4.8 % (0.0-4.3); Hemoglobin 9.4 gm/dl (11.8-15.2); Lymphocytes % (Auto) 18.6 % (13.4-35.0); Mean Corpuscular HGB Conc 35 % (32-34); Mean Corpuscular Volume 96 fl (84-94); Monocytes # (Auto) 0.5 K/mm3 (0.0-0.8); Monocytes % (Auto) 9.2 % (0.0-7.3); Platelet Count 166 K/mm3 (140-440); Red Blood Count 2.81 M/mm3 (3.65-5.03)
[2020-05-30 07:44] LABS: BUN/Creatinine Ratio 14; Blood Urea Nitrogen 13 mg/dL (9-20); Calcium 8.6 mg/dL (8.4-10.2); Hemolysis Index 26
[2020-05-30] MEDS: ASPIRIN EC 81 MG TAB PO SCH (10:04)
[2020-05-30] MEDS: ENOXAPARIN 40 MG/0.4 ML INJ SUB-Q SCH (10:04)
[2020-05-30] MEDS: CITALOPRAM 10 MG TAB PO SCH (10:04)
[2020-05-30] MEDS: METOPROLOL TARTRATE 25 MG TAB PO SCH ×2 (10:04→22:31)
[2020-05-30] MEDS: FAMOTIDINE 10 MG TAB PO SCH ×2 (10:04→22:31)
[2020-05-30] MEDS: risperiDONE 0.25 MG TAB PO SCH ×2 (10:04→22:31)
[2020-05-30] MEDS: busPIRone 10 MG TAB PO SCH ×2 (10:07→22:31)
--- NOTE | 2020-05-30 10:28 | Progress Note ---
Assessment and Plan Assessment and plan: (1) Acute metabolic encephalopathy Current Visit: Yes Status: Acute Plan to address problem: CT head - negative COVID-19 - negative Family refused LP MRI brain is pending (2) Hyperkalemia Current Visit: Yes Status: Acute Plan to address problem: Resolved (3) YANET (acute kidney injury) Current Visit: Yes Status: Acute Plan to address problem: resolved (4) Debility, unspecified Current Visit: Yes Status: Acute Plan to address problem: PT/OT pending (5) Dementia with behavioral disturbance Current Visit: Yes Status: Acute Plan to address problem: Risperidone twice daily Psychiatry following (5) DVT prophylaxis Current Visit: Yes Status: Acute Plan to address problem: On heparin and GI prophylaxis 05/19. Patient is still on IV antibiotics. He is alert and oriented x1. He is able to say time by looking at the clock however. Discussed case with patient's RN at the half-way, who states that patient usually is able to have a normal conversation and is alert and oriented x2. Medication reviewed showed patient is not on any narcotics while in the half-way. He has not had any temperature spike here. COVID-19 test performed was negative during this admission. His vital signs remained stable. Try to speak with brother on the phone but could not get him so I left a voice message. Still awaiting callback. 05/20. Spoke with RN at the nursing facility who states that patient usually alert and oriented x2 and is able to take a shower and have quite a normal conversation. He occasionally tells time when he looks at the clock. Patient has slight spike in temperature more than 100.1 Fahrenheit. Urinalysis showed no organisms. Procalcitonin was also negative. At this time I do not suspect a bacterial infection so will discontinue IV antibiotics. COVID-19 test already negative. Need to rule out viral illness at this time. Patient needs an LP- ordered LP and CSF analysis. Neurology to review as patient will need an MRI of the brain. His TSH, folate and vitamin B12 levels are all within normal limits. 05/21. He is awake, alert and oriented x1. Plan for LP today. Neurology to see. 05/22. F/U EEG for subclinical sz. Check MRI brain per Neuro 05/23/2020. Patient remains encephalopathic. Await follow-up EEG and MRI brain per neurology recommendations. 05/24/2020. Nursing reports difficulty obtaining consent for EEG and MRI. Check ammonia level. Neurology following. 05/25/2020. Nursing still reports difficulty obtaining consent for EEG, LP and MRI. Check with hospital administration with regards for two physicians signature for consent. Ammonia level within normal limits. Continue restraints for safety 05/26/2020. Consents have been obtained. Await EEG, LP and MRI. Continue res traints for safety. 05/27/2020. Await EEG, LP and MRI. Neurology following. Continue restraints for safety. 05/28/2020. Patient remains confused/encephalopathic. Await EEG, LP and MRI. Neurology following. Continue restraints for safety. 05/29. Awaiting studies to evaluate his confusion. Family refused LP. Awaiting EEG and MRI brain. 05/30. MRI brain as per neurology is still pending. Trying to call MRI dept but no response. History Interval history: 80-year-old male with a medical history of dementia admitted with altered mental status. As per admission notes, patient was noted to be acting differently compared with baseline while in the half-way. No reported fever or flulike illness. Due to concern for possible infection, patient was brought to the hospital for further evaluation Aetiology of change in mental status still unknown. CT head was negative. No obvious source of infection found (patients family declined LP). Plan to get MRI brain to rule out CVA. Hospitalist Physical - Physical exam Narrative exam: VITAL SIGNS: Reviewed. GENERAL: Awake HEAD: No signs of head trauma. EYES: Pupils are equal. Extraocular motions intact. EARS: Hearing grossly intact. MOUTH: Oropharynx is normal. NECK: No adenopathy, no JVD. CHEST: Chest with diminished breath sounds bilaterally. No wheezes, rales, or rhonchi. CARDIAC: Regular rate and rhythm. S1 and S2, without murmurs, gallops, or rubs. VASCULAR: No Edema. Peripheral pulses normal and equal in all extremities. ABDOMEN: Soft, non tender and non distended. No rebound or guarding, and no masses palpated. Bowel Sounds normal. MUSCULOSKELETAL: Good range of motion of all major joints. Extremities without clubbing, cyanosis or edema. NEUROLOGIC EXAM: Alert but confused PSYCHIATRIC: Stable mood SKIN: No obvious lesions - Constitutional Vitals: Temp Pulse Resp BP Pulse Ox 97.5 F L 65 20 138/46 98 05/29/20 18:28 05/29/20 21:40 05/29/20 18:28 05/30/20 10:14 05/29/20 18:28 Results - Labs CBC & Chem 7: 05/30/20 04:36 05/30/20 04:36 Labs: Laboratory Last Values WBC 5.2 K/mm3 (4.5-11.0) 05/30/20 04:36 RBC 2.81 M/mm3 (3.65-5.03) L 05/30/20 04:36 Hgb 9.4 gm/dl (11.8-15.2) L 05/30/20 04:36 Hct 27.0 % (35.5-45.6) L 05/30/20 04:36 MCV 96 fl (84-94) H 05/30/20 04:36 MCH 33 pg (28-32) H 05/30/20 04:36 MCHC 35 % (32-34) H 05/30/20 04:36 RDW 13.0 % (13.2-15.2) L 05/30/20 04:36 Plt Count 166 K/mm3 (140-440) 05/30/20 04:36 Lymph % (Auto) 18.6 % (13.4-35.0) 05/30/20 04:36 [place] % (Auto) 9.2 % (0.0-7.3) H 05/30/20 04:36 Eos % (Auto) 4.8 % (0.0-4.3) H 05/30/20 04:36 Baso % (Auto) 0.5 % (0.0-1.8) 05/30/20 04:36 Lymph # (Auto) 1.0 K/mm3 (1.2-5.4) L 05/30/20 04:36 [place] # (Auto) 0.5 K/mm3 (0.0-0.8) 05/30/20 04:36 Eos # (Auto) 0.3 K/mm3 (0.0-0.4) 05/30/20 04:36 Baso # (Auto) 0.0 K/mm3 (0.0-0.1) 05/30/20 04:36 Seg Neutrophils % 66.9 % (40.0-70.0) 05/30/20 04:36 Seg Neutrophils # 3.5 K/mm3 (1.8-7.7) 05/30/20 04:36 PT 14.2 Sec. (12.2-14.9) 05/21/20 04:14 INR 1.11 (0.87-1.13) 05/21/20 04:14 APTT 33.8 Sec. (24.2-36.6) 05/21/20 04:14 Sodium 140 mmol/L (137-145) 05/30/20 04:36 Potassium 3.9 mmol/L (3.6-5.0) 05/30/20 04:36 Chloride 106.7 mmol/L (98-107) 05/30/20 04:36 Carbon Dioxide 27 mmol/L (22-30) 05/30/20 04:36 Anion Gap 10 mmol/L 05/30/20 04:36 BUN 13 mg/dL (9-20) 05/30/20 04:36 Creatinine 0.9 mg/dL (0.8-1.3) 05/30/20 04:36 Estimated GFR > 60 ml/min 05/30/20 04:36 BUN/Creatinine Ratio 14 % 05/30/20 04:36 Glucose 106 mg/dL (75-100) H 05/30/20 04:36 Hemoglobin A1c 4.6 % (4-6) 05/17/20 16:19 Calcium 8.6 mg/dL (8.4-10.2) 05/30/20 04:36 Total Bilirubin 0.40 mg/dL (0.1-1.2) 05/20/20 03:38 AST 85 units/L (5-40) H 05/20/20 03:38 ALT 26 units/L (7-56) 05/20/20 03:38 Alkaline Phosphatase 95 units/L (35-129) 05/20/20 03:38 Ammonia 50.0 umol/L (25-60) 05/24/20 10:59 Total Protein 6.7 g/dL (6.3-8.2) 05/20/20 03:38 Albumin 3.6 g/dL (3.9-5) L 05/20/20 03:38 Albumin/Globulin Ratio 1.2 % 05/20/20 03:38 Vitamin B12 331.4 pg/mL (211-911) 05/19/20 12:27 Folate 12.77 ng/mL (7.3-26.0) 05/19/20 12:27 Procalcitonin < 0.05 ng/mL (<0.15) 05/18/20 08:00 TSH 1.530 mlU/mL (0.270-4.200) 05/19/20 12:27 Urine Color Yellow (Yellow) 05/18/20 Unknown Urine Turbidity Clear (Clear) 05/18/20 Unknown Urine pH 5.0 (5.0-7.0) 05/18/20 Unknown Ur Specific [place] 1.014 (1.003-1.030) 05/18/20 Unknown Urine Protein <15 mg/dl mg/dL (Negative) 05/18/20 Unknown Urine Glucose (UA) Neg mg/dL (Negative) 05/18/20 Unknown Urine Ketones Neg mg/dL (Negative) 05/18/20 Unknown Urine Blood Neg (Negative) 05/18/20 Unknown Urine Nitrite Neg (Negative) 05/18/20 Unknown Urine Bilirubin Neg (Negative) 05/18/20 Unknown Urine Urobilinogen < 2.0 mg/dL (<2.0) 05/18/20 Unknown Ur Leukocyte Esterase Neg (Negative) 05/18/20 Unknown Urine WBC (Auto) 1.0 /HPF (0.0-6.0) 05/18/20 Unknown Urine RBC (Auto) < 1.0 /HPF (0.0-6.0) 05/18/20 Unknown U Epithel Cells (Auto) < 1.0 /HPF (0-13.0) 05/18/20 Unknown Urine Mucus Few /HPF 05/18/20 Unknown Coronavirus (PCR) Negative (Negative) 05/18/20 11:00 Patel/IV: Voiding Method Incontinent IV Catheter Type [Left Upper Peripheral IV arm] IV Catheter Type [Left Forearm Peripheral IV ] IV Catheter Type [Right Wrist] Peripheral IV IV Catheter Type [Right Peripheral IV Forearm] Active Medications - Current Medications Current Medications: Generic Name Dose Route Start Last Admin Trade Name Freq PRN Reason Stop Dose Admin Acetaminophen 650 mg 05/17/20 22:34 Tylenol PO Q4H PRN Pain MILD(1-3)/Fever >100.5/MONTALVO Aspirin 81 mg 05/20/20 10:00 05/30/20 10:04 Halfprin Ec PO 81 mg QDAY WYATT Administration Buspirone HCl 10 mg 05/19/20 22:00 05/30/20 10:07 Buspar PO 10 mg BID WYATT Administration Citalopram Hydrobromide 5 mg 05/20/20 10:00 05/30/20 10:04 Celexa PO 5 mg QDAY WYATT Administration Donepezil HCl 10 mg 05/19/20 22:00 05/29/20 21:32 Aricept PO 10 mg QHS WYATT Administration Enoxaparin Sodium 40 mg 05/20/20 12:00 05/30/20 10:04 Enoxaparin SUB-Q 40 mg QDAY@1000 WYATT Administration Famotidine 10 mg 05/17/20 23:00 05/30/20 10:04 Pepcid PO 10 mg BID WYATT Administration Dextrose/Sodium Chloride 1,000 mls @ 125 mls/hr 05/18/20 07:35 05/30/20 10:07 D5/0.45ns IV 125 mls/hr DIRECT WYTAT Administration Melatonin 5 mg 05/19/20 18:28 05/26/20 22:07 Melatonin PO 5 mg QHS PRN Administration Sleep Metoclopramide HCl 5 mg 05/17/20 22:45 05/21/20 10:15 Reglan IV 5 mg Q6H PRN Administration Nausea And Vomiting Metoprolol Tartrate 25 mg 05/19/20 22:00 05/30/20 10:04 Metoprolol PO 25 mg BID WYATT Administration Morphine Sulfate 2 mg 05/17/20 22:34 Morphine IV Q4H PRN Pain, Moderate (4-6) Ondansetron HCl 4 mg 05/17/20 22:34 05/21/20 05:20 Zofran IV 4 mg Q8H PRN Administration Nausea And Vomiting Risperidone 0.25 mg 05/20/20 22:00 05/30/20 10:04 Risperdal PO 0.25 mg BID WYATT Administration Sodium Chloride 10 ml 05/18/20 10:00 05/30/20 10:08 Sodium Chloride Flush Syringe 10 Ml IV 10 ml BID WYATT Administration Sodium Chloride 10 ml 05/17/20 22:34 05/20/20 09:20 Sodium Chloride Flush Syringe 10 Ml IV 10 ml PRN PRN Administration LINE FLUSH Nutrition/Malnutrition Assess - Dietary Evaluation Nutrition/Malnutrition Findings: Nutrition Notes Start: 05/25/20 12:10 Freq: Status: Active Protocol: Document 05/29/20 11:52 AB (Rec: 05/29/20 12:05 AB [id number]) Co-Sign 05/29/20 11:52 MK Nutrition Notes Initial or Follow up Reassessment Current Diagnosis Acute Kidney Injury, Hypertension,Stroke Other Pertinent Diagnosis dementia, encephalopathy Current Diet Mechanical soft Labs/Tests K 3.4 Pertinent Medications D5NS at 125 ml/hr Height 5 ft 4 in Weight 78.4 kg [place] Body Weight (kg) 59.09 BMI 29.6 Weight Status Overweight Subjective/Other Information Pt was confused and unable to communicate with seo intern. Pt had a full meal and supplement next to his bed, which was untouched. Per RN, pt never drinks supplement. Per chart, pt consumed 50% of meal on . Percent of energy/protein needs met: 30%/38% Burn Absent Trauma Absent Difficulty In Chewing Minimum of two criteria No Reduced Lock Assembler Strength Measurably Reduced (severe) #1 Nutrition Diagnosis Inadequate oral intake Diagnosis Progress(for reassessment Continues documentation) Is patient on ventilator? No Is Patient Ambulatory and/or Out of Bed No [facility] [phone] Calculation [facility] Additional Notes Protein: 63-94g (.8-1.2 g/kg) Fluid: 1 ml/kcal Nutrition Intervention Change Diet Order: Continue Add Supplement/Snack (indicate name/kcal D/C /protein ) Goal #1 Meet at least 75% of energy and protein needs Anticipated Discharge Needs: mechanical soft diet Follow-Up By: 05/31/20 Additional Comments F/U for PO intakes
[2020-05-30] MEDS: DONEPEZIL 10 MG TAB PO SCH (22:31)
[2020-05-31] MEDS: D5W/0.45% NACL 1,000 ML IV SCH (06:50)
[2020-05-31] MEDS: risperiDONE 0.25 MG TAB PO SCH ×2 (09:05→22:10)
[2020-05-31] MEDS: FAMOTIDINE 10 MG TAB PO SCH ×2 (09:05→22:10)
[2020-05-31] MEDS: METOPROLOL TARTRATE 25 MG TAB PO SCH ×2 (09:05→22:11)
[2020-05-31] MEDS: CITALOPRAM 10 MG TAB PO SCH (09:05)
[2020-05-31] MEDS: ENOXAPARIN 40 MG/0.4 ML INJ SUB-Q SCH (09:05)
[2020-05-31] MEDS: ASPIRIN EC 81 MG TAB PO SCH (09:05)
[2020-05-31] MEDS: busPIRone 10 MG TAB PO SCH ×2 (09:06→22:10)
--- NOTE | 2020-05-31 10:56 | Magnetic Resonance Report ---
MRI BRAIN 05/31/2020 INDICATION / CLINICAL INFORMATION: Rule out CVA. Altered mental status TECHNIQUE: Multiplanar, multisequence MR images of the brain were obtained. COMPARISON: CT brain 05/18/2020 FINDINGS: BRAIN / INTRACRANIAL CONTENTS: Unenhanced and enhanced MR images of the brain demonstrate no evidence of acute intracranial abnormality. Ventricles and sulci are prominent in size, consistent with age-related atrophic change. Moderate chronic white matter T2 weighted hyperintensities are present in the periventricular and lex p white matter of the cerebral hemispheres, consistent with moderate chronic small vessel ischemic ch lana. There is no evidence of acute ischemic injury, hemorrhage, or mass. There are no abnormal extra-axial fluid collections. Postcontrast images demonstrate no abnormal contrast enhancement. EXTRACRANIAL: Unremarkable CRANIOCERVICAL JUNCTION: No significant abnormality. VASCULAR FLOW-VOIDS: No significant abnormality. Coastal thickening is present in the ethmoid and maxillary sinus on the right. The right frontal sin us is opacified. Mucosal thickening is present in the left sphenoid sinus. IMPRESSION: No acute abnormality. Chronic and age-related changes. Signer Name: Donovan Armstrong MD Signed: 05/31/2020 10:52 AM Workstation Name: [id number]
--- NOTE | 2020-05-31 11:31 | Progress Note ---
Assessment and Plan Assessment and plan: (1) Acute metabolic encephalopathy Current Visit: Yes Status: Acute Plan to address problem: CT head - negative COVID-19 - negative Need to rule out encephalitis. LP ordered. CSF analysis will be sent. Neurology consulted. Needs to have an MRI of the brain (2) Hyperkalemia Current Visit: Yes Status: Acute Plan to address problem: Resolved (3) YANET (acute kidney injury) Current Visit: Yes Status: Acute Plan to address problem: Improved (4) Debility, unspecified Current Visit: Yes Status: Acute Plan to address problem: PT/OT pending (5) Dementia with behavioral disturbance Current Visit: Yes Status: Acute Plan to address problem: Risperidone twice daily Psychiatry following (5) DVT prophylaxis Current Visit: Yes Status: Acute Plan to address problem: On heparin and GI prophylaxis 05/19. Patient is still on IV antibiotics. He is alert and oriented x1. He is able to say time by looking at the clock however. Discussed case with patient's RN at the residential, who states that patient usually is able to have a normal conversation and is alert and oriented x2. Medication reviewed showed patient is not on any narcotics while in the residential. He has not had any temperature spike here. COVID-19 test performed was negative during this admission. His vital signs remained stable. Try to speak with brother on the phone but could not get him so I left a voice message. Still awaiting callback. 05/20. Spoke with RN at the nursing facility who states that patient usually alert and oriented x2 and is able to take a shower and have quite a normal conversation. He occasionally tells time when he looks at the clock. Patient has slight spike in temperature more than 100.1 Fahrenheit. Urinalysis showed no organisms. Procalcitonin was also negative. At this time I do not suspect a bacterial infection so will discontinue IV antibiotics. COVID-19 test already negative. Need to rule out viral illness at this time. Patient needs an LP- ordered LP and CSF analysis. Neurology to review as patient will need an MRI of the brain. His TSH, folate and vitamin B12 levels are all within normal limits. 05/21. He is awake, alert and oriented x1. Plan for LP today. Neurology to see. 05/22. F/U EEG for subclinical sz. Check MRI brain per Neuro 05/23/2020. Patient remains encephalopathic. Await follow-up EEG and MRI brain per neurology recommendations. 05/24/2020. Nursing reports difficulty obtaining consent for EEG and MRI. Check ammonia level. Neurology following. 05/25/2020. Nursing still reports difficulty obtaining consent for EEG, LP and MRI. Check with hospital administration with regards for two physicians signature for consent. Ammonia level within normal limits. Continue restraints for safety 05/26/2020. Consents have been obtained. Await EEG, LP and MRI. Continue restraints for safety. 05/27/2020. Await EEG, LP and MRI. Neurology following. Continue restraints for safety. 05/28/2020. Patient remains confused/encephalopathic. Await EEG, LP and MRI. Neurology following. Continue restraints for safety. 05/29-. Awaiting studies to evaluate his confusion. 05/31. MRI brain shows no ischemia. EEG is pending. I doubt patient has ongoing infection. He has not had any spike in temperature. Neurology to evaluate after full report of work up is available History Interval history: 80-year-old male with a medical history of dementia admitted with altered mental status. As per admission notes, patient was noted to be acting differently compared with baseline while in the residential. No reported fever or flulike illness. Due to concern for possible infection, patient was brought to the hospital for further evaluation Hospitalist Physical - Physical exam Narrative exam: VITAL SIGNS: Reviewed. GENERAL: Awake HEAD: No signs of head trauma. EYES: Pupils are equal. Extraocular motions intact. EARS: Hearing grossly intact. MOUTH: Oropharynx is normal. NECK: No adenopathy, no JVD. CHEST: Chest with diminished breath sounds bilaterally. No wheezes, rales, or rhonchi. CARDIAC: Regular rate and rhythm. S1 and S2, without murmurs, gallops, or rubs. VASCULAR: No Edema. Peripheral pulses normal and equal in all extremities. ABDOMEN: Soft, non tender and non distended. No rebound or guarding, and no masses palpated. Bowel Sounds normal. MUSCULOSKELETAL: Good range of motion of all major joints. Extremities without clubbing, cyanosis or edema. NEUROLOGIC EXAM: Alert but confused PSYCHIATRIC: Stable mood SKIN: No obvious lesions - Constitutional Vitals: Temp Pulse Resp BP Pulse Ox 97.0 F L 60 18 144/48 100 05/31/20 05:19 05/31/20 05:19 05/31/20 05:19 05/31/20 05:19 05/31/20 05:19 Results - Labs CBC & Chem 7: 05/30/20 04:36 05/30/20 04:36 Labs: Laboratory Last Values WBC 5.2 K/mm3 (4.5-11.0) 05/30/20 04:36 RBC 2.81 M/mm3 (3.65-5.03) L 05/30/20 04:36 Hgb 9.4 gm/dl (11.8-15.2) L 05/30/20 04:36 Hct 27.0 % (35.5-45.6) L 05/30/20 04:36 MCV 96 fl (84-94) H 05/30/20 04:36 MCH 33 pg (28-32) H 05/30/20 04:36 MCHC 35 % (32-34) H 05/30/20 04:36 RDW 13.0 % (13.2-15.2) L 05/30/20 04:36 Plt Count 166 K/mm3 (140-440) 05/30/20 04:36 Lymph % (Auto) 18.6 % (13.4-35.0) 05/30/20 04:36 [place] % (Auto) 9.2 % (0.0-7.3) H 05/30/20 04:36 Eos % (Auto) 4.8 % (0.0-4.3) H 05/30/20 04:36 Baso % (Auto) 0.5 % (0.0-1.8) 05/30/20 04:36 Lymph # (Auto) 1.0 K/mm3 (1.2-5.4) L 05/30/20 04:36 [place] # (Auto) 0.5 K/mm3 (0.0-0.8) 05/30/20 04:36 Eos # (Auto) 0.3 K/mm3 (0.0-0.4) 05/30/20 04:36 Baso # (Auto) 0.0 K/mm3 (0.0-0.1) 05/30/20 04:36 Seg Neutrophils % 66.9 % (40.0-70.0) 05/30/20 04:36 Seg Neutrophils # 3.5 K/mm3 (1.8-7.7) 05/30/20 04:36 PT 14.2 Sec. (12.2-14.9) 05/21/20 04:14 INR 1.11 (0.87-1.13) 05/21/20 04:14 APTT 33.8 Sec. (24.2-36.6) 05/21/20 04:14 Sodium 140 mmol/L (137-145) 05/30/20 04:36 Potassium 3.9 mmol/L (3.6-5.0) 05/30/20 04:36 Chloride 106.7 mmol/L (98-107) 05/30/20 04:36 Carbon Dioxide 27 mmol/L (22-30) 05/30/20 04:36 Anion Gap 10 mmol/L 05/30/20 04:36 BUN 13 mg/dL (9-20) 05/30/20 04:36 Creatinine 0.9 mg/dL (0.8-1.3) 05/30/20 04:36 Estimated GFR > 60 ml/min 05/30/20 04:36 BUN/Creatinine Ratio 14 % 05/30/20 04:36 Glucose 106 mg/dL (75-100) H 05/30/20 04:36 Hemoglobin A1c 4.6 % (4-6) 05/17/20 16:19 Calcium 8.6 mg/dL (8.4-10.2) 05/30/20 04:36 Total Bilirubin 0.40 mg/dL (0.1-1.2) 05/20/20 03:38 AST 85 units/L (5-40) H 05/20/20 03:38 ALT 26 units/L (7-56) 05/20/20 03:38 Alkaline Phosphatase 95 units/L (35-129) 05/20/20 03:38 Ammonia 50.0 umol/L (25-60) 05/24/20 10:59 Total Protein 6.7 g/dL (6.3-8.2) 05/20/20 03:38 Albumin 3.6 g/dL (3.9-5) L 05/20/20 03:38 Albumin/Globulin Ratio 1.2 % 05/20/20 03:38 Vitamin B12 331.4 pg/mL (211-911) 05/19/20 12:27 Folate 12.77 ng/mL (7.3-26.0) 05/19/20 12:27 Procalcitonin < 0.05 ng/mL (<0.15) 05/18/20 08:00 TSH 1.530 mlU/mL (0.270-4.200) 05/19/20 12:27 Urine Color Yellow (Yellow) 05/18/20 Unknown Urine Turbidity Clear (Clear) 05/18/20 Unknown Urine pH 5.0 (5.0-7.0) 05/18/20 Unknown Ur Specific [place] 1.014 (1.003-1.030) 05/18/20 Unknown Urine Protein <15 mg/dl mg/dL (Negative) 05/18/20 Unknown Urine Glucose (UA) Neg mg/dL (Negative) 05/18/20 Unknown Urine Ketones Neg mg/dL (Negative) 05/18/20 Unknown Urine Blood Neg (Negative) 05/18/20 Unknown Urine Nitrite Neg (Negative) 05/18/20 Unknown Urine Bilirubin Neg (Negative) 05/18/20 Unknown Urine Urobilinogen < 2.0 mg/dL (<2.0) 05/18/20 Unknown Ur Leukocyte Esterase Neg (Negative) 05/18/20 Unknown Urine WBC (Auto) 1.0 /HPF (0.0-6.0) 05/18/20 Unknown Urine RBC (Auto) < 1.0 /HPF (0.0-6.0) 05/18/20 Unknown U Epithel Cells (Auto) < 1.0 /HPF (0-13.0) 05/18/20 Unknown Urine Mucus Few /HPF 05/18/20 Unknown Coronavirus (PCR) Negative (Negative) 05/18/20 11:00 Patel/IV: Voiding Method Condom Catheter IV Catheter Type [Left Upper Peripheral IV arm] IV Catheter Type [Left Forearm Peripheral IV ] IV Catheter Type [Right Wrist] Peripheral IV IV Catheter Type [Right Peripheral IV Forearm] Active Medications - Current Medications Current Medications: Generic Name Dose Route Start Last Admin Trade Name Freq PRN Reason Stop Dose Admin Acetaminophen 650 mg 05/17/20 22:34 Tylenol PO Q4H PRN Pain MILD(1-3)/Fever >100.5/MONTALVO Aspirin 81 mg 05/20/20 10:00 05/31/20 09:05 Halfprin Ec PO 81 mg QDAY WYATT Administration Buspirone HCl 10 mg 05/19/20 22:00 05/31/20 09:06 Buspar PO 10 mg BID WYATT Administration Citalopram Hydrobromide 5 mg 05/20/20 10:00 05/31/20 09:05 Celexa PO 5 mg QDAY WYATT Administration Donepezil HCl 10 mg 05/19/20 22:00 05/30/20 22:31 Aricept PO 10 mg QHS WYATT Administration Enoxaparin Sodium 40 mg 05/20/20 12:00 05/31/20 09:05 Enoxaparin SUB-Q 40 mg QDAY@1000 WYATT Administration Famotidine 10 mg 05/17/20 23:00 05/31/20 09:05 Pepcid PO 10 mg BID WYATT Administration Dextrose/Sodium Chloride 1,000 mls @ 125 mls/hr 05/18/20 07:35 05/31/20 06:50 D5/0.45ns IV 125 mls/hr DIRECT WYATT Administration Melatonin 5 mg 05/19/20 18:28 05/26/20 22:07 Melatonin PO 5 mg QHS PRN Administration Sleep Metoclopramide HCl 5 mg 05/17/20 22:45 05/21/20 10:15 Reglan IV 5 mg Q6H PRN Administration Nausea And Vomiting Metoprolol Tartrate 25 mg 05/19/20 22:00 05/31/20 09:05 Metoprolol PO 25 mg BID WYATT Administration Morphine Sulfate 2 mg 05/17/20 22:34 Morphine IV Q4H PRN Pain, Moderate (4-6) Ondansetron HCl 4 mg 05/17/20 22:34 05/21/20 05:20 Zofran IV 4 mg Q8H PRN Administration Nausea And Vomiting Risperidone 0.25 mg 05/20/20 22:00 05/31/20 09:05 Risperdal PO 0.25 mg BID WYATT Administration Sodium Chloride 10 ml 05/18/20 10:00 05/31/20 09:06 Sodium Chloride Flush Syringe 10 Ml IV 10 ml BID WYATT Administration Sodium Chloride 10 ml 05/17/20 22:34 05/20/20 09:20 Sodium Chloride Flush Syringe 10 Ml IV 10 ml PRN PRN Administration LINE FLUSH Nutrition/Malnutrition Assess - Dietary Evaluation Nutrition/Malnutrition Findings: Nutrition Notes Start: 05/25/20 12:10 Freq: Status: Active Protocol: Document 05/29/20 11:52 AB (Rec: 05/29/20 12:05 AB [id number]) Co-Sign 05/29/20 11:52 MK Nutrition Notes Initial or Follow up Reassessment Current Diagnosis Acute Kidney Injury, Hypertension,Stroke Other Pertinent Diagnosis dementia, encephalopathy Current Diet Mechanical soft Labs/Tests K 3.4 Pertinent Medications D5NS at 125 ml/hr Height 5 ft 4 in Weight 78.4 kg [place] Body Weight (kg) 59.09 BMI 29.6 Weight Status Overweight Subjective/Other Information Pt was confused and unable to communicate with physician general internal medicine. Pt had a full meal and supplement next to his bed, which was untouched. Per RN, pt never drinks supplement. Per chart, pt consumed 50% of meal on . Percent of energy/protein needs met: 30%/38% Burn Absent Trauma Absent Difficulty In Chewing Minimum of two criteria No Reduced Spiral [place] Strength Measurably Reduced (severe) #1 Nutrition Diagnosis Inadequate oral intake Diagnosis Progress(for reassessment Continues documentation) Is patient on ventilator? No Is Patient Ambulatory and/or Out of Bed No REE-([place]-confined to bed) 6635.606 Calculation Used for Recommendations [place] Additional Notes Protein: 63-94g (.8-1.2 g/kg) Fluid: 1 ml/kcal Nutrition Intervention Change Diet Order: Continue Add Supplement/Snack (indicate name/kcal D/C /protein ) Goal #1 Meet at least 75% of energy and protein needs Anticipated Discharge Needs: mechanical soft diet Follow-Up By: 05/31/20 Additional Comments F/U for PO intakes
[2020-05-31] MEDS: DONEPEZIL 10 MG TAB PO SCH (22:10)
[2020-06-01] MEDS: CITALOPRAM 10 MG TAB PO SCH (09:15)
[2020-06-01] MEDS: ASPIRIN EC 81 MG TAB PO SCH (09:15)
[2020-06-01] MEDS: busPIRone 10 MG TAB PO SCH ×2 (09:16→21:00)
[2020-06-01] MEDS: risperiDONE 0.25 MG TAB PO SCH ×2 (09:16→21:01)
[2020-06-01] MEDS: ENOXAPARIN 40 MG/0.4 ML INJ SUB-Q SCH (09:16)
[2020-06-01] MEDS: FAMOTIDINE 10 MG TAB PO SCH ×2 (09:16→21:01)
[2020-06-01] MEDS: METOPROLOL TARTRATE 25 MG TAB PO SCH ×2 (09:16→23:50)
--- NOTE | 2020-06-01 09:55 | Progress Note ---
Assessment and Plan Assessment and plan: (1) Acute metabolic encephalopathy Current Visit: Yes Status: Acute Plan to address problem: CT head - negative COVID-19 - negative MRI brain negative for stroke EEG is pending. Neuro res appreciated (2) Hyperkalemia Current Visit: Yes Status: Acute Plan to address problem: Resolved (3) YANET (acute kidney injury) Current Visit: Yes Status: Acute Plan to address problem: Improved (4) Debility, unspecified Current Visit: Yes Status: Acute Plan to address problem: PT/OT pending (5) Dementia with behavioral disturbance Current Visit: Yes Status: Acute Plan to address problem: Risperidone twice daily Psychiatry following (5) DVT prophylaxis Current Visit: Yes Status: Acute Plan to address problem: On heparin and GI prophylaxis 05/19. Patient is still on IV antibiotics. He is alert and oriented x1. He is able to say time by looking at the clock however. [facility], who states that patient usually is able to have a normal conversation and is alert and oriented x2. Medication reviewed showed patient is not on any narcotics while in the jail. He has not had any temperature spike here. COVID-19 test performed was negative during this admission. His vital signs remained stable. Try to speak with brother on the phone but could not get him so I left a voice message. Still awaiting callback. 05/20. Spoke with RN at the nursing facility who states that patient usually alert and oriented x2 and is able to take a shower and have quite a normal conversation. He occasionally tells time when he looks at the clock. Patient has slight spike in temperature more than 100.1 Fahrenheit. Urinalysis showed no organisms. Procalcitonin was also negative. At this time I do not suspect a bacterial infection so will discontinue IV antibiotics. COVID-19 test already negative. Need to rule out viral illness at this time. Patient needs an LP- ordered LP and CSF analysis. Neurology to review as patient will need an MRI of the brain. His TSH, folate and vitamin B12 levels are all within normal limits. 05/21. He is awake, alert and oriented x1. Plan for LP today. Neurology to see. 05/22. F/U EEG for subclinical sz. Check MRI brain per Neuro 05/23/2020. Patient remains encephalopathic. Await follow-up EEG and MRI brain per neurology recommendations. 05/24/2020. Nursing reports difficulty obtaining consent for EEG and MRI. Check ammonia level. Neurology following. 05/25/2020. Nursing still reports difficulty obtaining consent for EEG, LP and MRI. Check with hospital administration with regards for two physicians signature for consent. Ammonia level within normal limits. Continue restraints for safety 05/26/2020. Consents have been obtained. Await EEG, LP and MRI. Continue restraints for safety. 05/27/2020. Await EEG, LP and MRI. Neurology following. Continue restraints for safety. 05/28/2020. Patient remains confused/encephalopathic. Await EEG, LP and MRI. Neurology following. Continue restraints for safety. 05/29-. Awaiting studies to evaluate his confusion. 05/31. MRI brain shows no ischemia. EEG is pending. I doubt patient has ongoing infection. He has not had any spike in temperature. Neurology to evaluate after full report of work up is available 06/01. EEG still pending. Patient will be discharged once EEG is negative. History Interval history: 80-year-old male with a medical history of dementia admitted with altered mental status. As per admission notes, patient was noted to be acting differently compared with baseline while in the jail. No reported fever or flulike illness. Due to concern for possible infection, patient was brought to the hospital for further evaluation Work-up for confusion negative so far. MRI brain showed no stroke Awaiting EEG Hospitalist Physical - Physical exam Narrative exam: VITAL SIGNS: Reviewed. GENERAL: Awake HEAD: No signs of head trauma. EYES: Pupils are equal. Extraocular motions intact. EARS: Hearing grossly intact. MOUTH: Oropharynx is normal. NECK: No adenopathy, no JVD. CHEST: Chest with diminished breath sounds bilaterally. No wheezes, rales, or rhonchi. CARDIAC: Regular rate and rhythm. S1 and S2, without murmurs, gallops, or rubs. VASCULAR: No Edema. Peripheral pulses normal and equal in all extremities. ABDOMEN: Soft, non tender and non distended. No rebound or guarding, and no masses palpated. Bowel Sounds normal. MUSCULOSKELETAL: Good range of motion of all major joints. Extremities without clubbing, cyanosis or edema. NEUROLOGIC EXAM: Alert and oriented in person PSYCHIATRIC: Stable mood SKIN: No obvious lesions - Constitutional Vitals: Temp Pulse Resp BP Pulse Ox 97.5 F L 65 18 149/47 98 06/01/20 06:07 06/01/20 09:16 06/01/20 06:07 06/01/20 09:16 06/01/20 06:07 Results - Labs CBC & Chem 7: 05/30/20 04:36 05/30/20 04:36 Labs: Laboratory Last Values WBC 5.2 K/mm3 (4.5-11.0) 05/30/20 04:36 RBC 2.81 M/mm3 (3.65-5.03) L 05/30/20 04:36 Hgb 9.4 gm/dl (11.8-15.2) L 05/30/20 04:36 Hct 27.0 % (35.5-45.6) L 05/30/20 04:36 MCV 96 fl (84-94) H 05/30/20 04:36 MCH 33 pg (28-32) H 05/30/20 04:36 MCHC 35 % (32-34) H 05/30/20 04:36 RDW 13.0 % (13.2-15.2) L 05/30/20 04:36 Plt Count 166 K/mm3 (140-440) 05/30/20 04:36 Lymph % (Auto) 18.6 % (13.4-35.0) 05/30/20 04:36 [place] % (Auto) 9.2 % (0.0-7.3) H 05/30/20 04:36 Eos % (Auto) 4.8 % (0.0-4.3) H 05/30/20 04:36 Baso % (Auto) 0.5 % (0.0-1.8) 05/30/20 04:36 Lymph # (Auto) 1.0 K/mm3 (1.2-5.4) L 05/30/20 04:36 [place] # (Auto) 0.5 K/mm3 (0.0-0.8) 05/30/20 04:36 Eos # (Auto) 0.3 K/mm3 (0.0-0.4) 05/30/20 04:36 Baso # (Auto) 0.0 K/mm3 (0.0-0.1) 05/30/20 04:36 Seg Neutrophils % 66.9 % (40.0-70.0) 05/30/20 04:36 Seg Neutrophils # 3.5 K/mm3 (1.8-7.7) 05/30/20 04:36 PT 14.2 Sec. (12.2-14.9) 05/21/20 04:14 INR 1.11 (0.87-1.13) 05/21/20 04:14 APTT 33.8 Sec. (24.2-36.6) 05/21/20 04:14 Sodium 140 mmol/L (137-145) 05/30/20 04:36 Potassium 3.9 mmol/L (3.6-5.0) 05/30/20 04:36 Chloride 106.7 mmol/L (98-107) 05/30/20 04:36 Carbon Dioxide 27 mmol/L (22-30) 05/30/20 04:36 Anion Gap 10 mmol/L 05/30/20 04:36 BUN 13 mg/dL (9-20) 05/30/20 04:36 Creatinine 0.9 mg/dL (0.8-1.3) 05/30/20 04:36 Estimated GFR > 60 ml/min 05/30/20 04:36 BUN/Creatinine Ratio 14 % 05/30/20 04:36 Glucose 106 mg/dL (75-100) H 05/30/20 04:36 Hemoglobin A1c 4.6 % (4-6) 05/17/20 16:19 Calcium 8.6 mg/dL (8.4-10.2) 05/30/20 04:36 Total Bilirubin 0.40 mg/dL (0.1-1.2) 05/20/20 03:38 AST 85 units/L (5-40) H 05/20/20 03:38 ALT 26 units/L (7-56) 05/20/20 03:38 Alkaline Phosphatase 95 units/L (35-129) 05/20/20 03:38 Ammonia 50.0 umol/L (25-60) 05/24/20 10:59 Total Protein 6.7 g/dL (6.3-8.2) 05/20/20 03:38 Albumin 3.6 g/dL (3.9-5) L 05/20/20 03:38 Albumin/Globulin Ratio 1.2 % 05/20/20 03:38 Vitamin B12 331.4 pg/mL (211-911) 05/19/20 12:27 Folate 12.77 ng/mL (7.3-26.0) 05/19/20 12:27 Procalcitonin < 0.05 ng/mL (<0.15) 05/18/20 08:00 TSH 1.530 mlU/mL (0.270-4.200) 05/19/20 12:27 Urine Color Yellow (Yellow) 05/18/20 Unknown Urine Turbidity Clear (Clear) 05/18/20 Unknown Urine pH 5.0 (5.0-7.0) 05/18/20 Unknown Ur Specific [place] 1.014 (1.003-1.030) 05/18/20 Unknown Urine Protein <15 mg/dl mg/dL (Negative) 05/18/20 Unknown Urine Glucose (UA) Neg mg/dL (Negative) 05/18/20 Unknown Urine Ketones Neg mg/dL (Negative) 05/18/20 Unknown Urine Blood Neg (Negative) 05/18/20 Unknown Urine Nitrite Neg (Negative) 05/18/20 Unknown Urine Bilirubin Neg (Negative) 05/18/20 Unknown Urine Urobilinogen < 2.0 mg/dL (<2.0) 05/18/20 Unknown Ur Leukocyte Esterase Neg (Negative) 05/18/20 Unknown Urine WBC (Auto) 1.0 /HPF (0.0-6.0) 05/18/20 Unknown Urine RBC (Auto) < 1.0 /HPF (0.0-6.0) 05/18/20 Unknown U Epithel Cells (Auto) < 1.0 /HPF (0-13.0) 05/18/20 Unknown Urine Mucus Few /HPF 05/18/20 Unknown Coronavirus (PCR) Negative (Negative) 05/18/20 11:00 Patel/IV: Voiding Method Condom Catheter IV Catheter Type [Left Hand] Peripheral IV IV Catheter Type [Left Upper Peripheral IV arm] IV Catheter Type [Left Forearm Peripheral IV ] IV Catheter Type [Right Wrist] Peripheral IV IV Catheter Type [Right Peripheral IV Forearm] Active Medications - Current Medications Current Medications: Generic Name Dose Route Start Last Admin Trade Name Freq PRN Reason Stop Dose Admin Acetaminophen 650 mg 05/17/20 22:34 Tylenol PO Q4H PRN Pain MILD(1-3)/Fever >100.5/MONTALVO Aspirin 81 mg 05/20/20 10:00 06/01/20 09:15 Halfprin Ec PO 81 mg QDAY WYATT Administration Buspirone HCl 10 mg 05/19/20 22:00 06/01/20 09:16 Buspar PO 10 mg BID WYATT Administration Citalopram Hydrobromide 5 mg 05/20/20 10:00 06/01/20 09:15 Celexa PO 5 mg QDAY WYATT Administration Donepezil HCl 10 mg 05/19/20 22:00 05/31/20 22:10 Aricept PO 10 mg QHS WYATT Administration Enoxaparin Sodium 40 mg 05/20/20 12:00 06/01/20 09:16 Enoxaparin SUB-Q 40 mg QDAY@1000 WYATT Administration Famotidine 10 mg 05/17/20 23:00 06/01/20 09:16 Pepcid PO 10 mg BID WYATT Administration Dextrose/Sodium Chloride 1,000 mls @ 125 mls/hr 05/18/20 07:35 05/31/20 06:50 D5/0.45ns IV 125 mls/hr DIRECT WYATT Administration Melatonin 5 mg 05/19/20 18:28 05/26/20 22:07 Melatonin PO 5 mg QHS PRN Administration Sleep Metoclopramide HCl 5 mg 05/17/20 22:45 05/21/20 10:15 Reglan IV 5 mg Q6H PRN Administration Nausea And Vomiting Metoprolol Tartrate 25 mg 05/19/20 22:00 06/01/20 09:16 Metoprolol PO 25 mg BID WYATT Administration Morphine Sulfate 2 mg 05/17/20 22:34 Morphine IV Q4H PRN Pain, Moderate (4-6) Ondansetron HCl 4 mg 05/17/20 22:34 05/21/20 05:20 Zofran IV 4 mg Q8H PRN Administration Nausea And Vomiting Risperidone 0.25 mg 05/20/20 22:00 06/01/20 09:16 Risperdal PO 0.25 mg BID WYATT Administration Sodium Chloride 10 ml 05/18/20 10:00 06/01/20 09:17 Sodium Chloride Flush Syringe 10 Ml IV 10 ml BID WYATT Administration Sodium Chloride 10 ml 05/17/20 22:34 05/31/20 22:10 Sodium Chloride Flush Syringe 10 Ml IV 10 ml PRN PRN Administration LINE FLUSH Nutrition/Malnutrition Assess - Dietary Evaluation Nutrition/Malnutrition Findings: Nutrition Notes Start: 05/25/20 12:10 Freq: Status: Active Protocol: Document 05/31/20 12:07 AT (Rec: 05/31/20 12:20 AT [id number]) Co-Sign 05/31/20 12:07 MK Nutrition Notes Initial or Follow up Reassessment Current Diagnosis Acute Kidney Injury, Hypertension,Stroke Other Pertinent Diagnosis dementia, encephalopathy Current Diet Mechanical soft-Cardiac Labs/Tests K 3.9 (WNL) Pertinent Medications D5NS at 125 ml/hr Height 5 ft 4 in Weight 77.9 kg [place] Body Weight (kg) 59.09 BMI 29.5 Weight change and time frame Weight change noted. Weight Status Overweight Subjective/Other Information Pt has dementia. Per RN, pt ate 75% of breakfast meal. ONS not d/c. Per chart and per today's intake, pt is consuming around 60% of meals overall. Percent of energy/protein needs met: 71%/75% Burn Absent Trauma Absent Difficulty In Chewing Minimum of two criteria No physical signs of malnutrition #1 Nutrition Diagnosis Inadequate oral intake As Evidenced by Signs and Symptoms pt consuming 71% of energy needs and 75% of protein needs . Diagnosis Progress(for reassessment Improved documentation) Is patient on ventilator? No Is Patient Ambulatory and/or Out of Bed No REE-([facility]-confined to bed) 9014.762 Calculation Used for Recommendations [facility] Additional Notes PRO needs: 62-93g (0.8-1.2 g/ kg) Fluid needs: 1 mL/kcal Nutrition Intervention Change Diet Order: Continue Cardiac Mechanical Add Supplement/Snack (indicate name/kcal D/C /protein ) Goal #1 Meet at least 75% of estimated energy and protein needs Anticipated Discharge Needs: Mechanical Soft-Cardiac diet Follow-Up By: 06/05/20 Additional Comments F/U for PO intakes
[2020-06-01] MEDS: D5W/0.45% NACL 1,000 ML IV SCH (20:50)
[2020-06-01] MEDS: DONEPEZIL 10 MG TAB PO SCH (21:00)
[2020-06-02] MEDS: MELATONIN 5 MG TAB PO PRN (02:43)
[2020-06-02] MEDS: D5W/0.45% NACL 1,000 ML IV SCH (09:52)
[2020-06-02] MEDS: risperiDONE 0.25 MG TAB PO SCH ×2 (09:54→23:34)
[2020-06-02] MEDS: METOPROLOL TARTRATE 25 MG TAB PO SCH ×2 (09:54→23:35)
[2020-06-02] MEDS: FAMOTIDINE 10 MG TAB PO SCH ×2 (09:54→23:34)
[2020-06-02] MEDS: CITALOPRAM 10 MG TAB PO SCH (09:54)
[2020-06-02] MEDS: ASPIRIN EC 81 MG TAB PO SCH (09:54)
[2020-06-02] MEDS: busPIRone 10 MG TAB PO SCH ×2 (09:54→23:35)
[2020-06-02] MEDS: ENOXAPARIN 40 MG/0.4 ML INJ SUB-Q SCH (09:54)
--- NOTE | 2020-06-02 10:57 | Progress Note ---
Assessment and Plan Assessment and plan: (1) Acute metabolic encephalopathy Current Visit: Yes Status: Acute Plan to address problem: CT head - negative COVID-19 - negative MRI brain negative for stroke EEG is pending. Neuro res appreciated (2) Hyperkalemia Current Visit: Yes Status: Acute Plan to address problem: Resolved (3) YANET (acute kidney injury) Current Visit: Yes Status: Acute Plan to address problem: Improved (4) Debility, unspecified Current Visit: Yes Status: Acute Plan to address problem: PT/OT pending (5) Dementia with behavioral disturbance Current Visit: Yes Status: Acute Plan to address problem: Risperidone twice daily Psychiatry following (5) DVT prophylaxis Current Visit: Yes Status: Acute Plan to address problem: On heparin and GI prophylaxis 05/19. Patient is still on IV antibiotics. He is alert and oriented x1. He is able to say time by looking at the clock however. Discussed case with patient's RN at the longterm, who states that patient usually is able to have a normal conversation and is alert and oriented x2. Medication reviewed showed patient is not on any narcotics while in the longterm. He has not had any temperature spike here. COVID-19 test performed was negative during this admission. His vital signs remained stable. Try to speak with brother on the phone but could not get him so I left a voice message. Still awaiting callback. 05/20. Spoke with RN at the nursing facility who states that patient usually alert and oriented x2 and is able to take a shower and have quite a normal conversation. He occasionally tells time when he looks at the clock. Patient has slight spike in temperature more than 100.1 Fahrenheit. Urinalysis showed no organisms. Procalcitonin was also negative. At this time I do not suspect a bacterial infection so will discontinue IV antibiotics. COVID-19 test already negative. Need to rule out viral illness at this time. Patient needs an LP- ordered LP and CSF analysis. Neurology to review as patient will need an MRI of the brain. His TSH, folate and vitamin B12 levels are all within normal limits. 05/21. He is awake, alert and oriented x1. Plan for LP today. Neurology to see. 05/22. F/U EEG for subclinical sz. Check MRI brain per Neuro 05/23/2020. Patient remains encephalopathic. Await follow-up EEG and MRI brain per neurology recommendations. 05/24/2020. Nursing reports difficulty obtaining consent for EEG and MRI. Check ammonia level. Neurology following. 05/25/2020. Nursing still reports difficulty obtaining consent for EEG, LP and MRI. Check with hospital administration with regards for two physicians signature for consent. Ammonia level within normal limits. Continue restraints for safety 05/26/2020. Consents have been obtained. Await EEG, LP and MRI. Continue restraints for safety. 05/27/2020. Await EEG, LP and MRI. Neurology following. Continue restraints for safety. 05/28/2020. Patient remains confused/encephalopathic. Await EEG, LP and MRI. Neurology following. Continue restraints for safety. 05/29-. Awaiting studies to evaluate his confusion. 05/31. MRI brain shows no ischemia. EEG is pending. I doubt patient has ongoing infection. He has not had any spike in temperature. Neurology to evaluate after full report of work up is available 06/01. EEG still pending. Patient will be discharged once EEG is negative. 06/02. As per unit. EEG reportedly performed but no report yet. History Interval history: 80-year-old male with a medical history of dementia admitted with altered mental status. As per admission notes, patient was noted to be acting differently compared with baseline while in the longterm. No reported fever or flulike illness. Due to concern for possible infection, patient was brought to the hospital for further evaluation Work-up for confusion negative so far. MRI brain showed no stroke Awaiting EEG Hospitalist Physical - Physical exam Narrative exam: VITAL SIGNS: Reviewed. GENERAL: Awake HEAD: No signs of head trauma. EYES: Pupils are equal. Extraocular motions intact. EARS: Hearing grossly intact. MOUTH: Oropharynx is normal. NECK: No adenopathy, no JVD. CHEST: Chest with diminished breath sounds bilaterally. No wheezes, rales, or rhonchi. CARDIAC: Regular rate and rhythm. S1 and S2, without murmurs, gallops, or rubs. VASCULAR: No Edema. Peripheral pulses normal and equal in all extremities. ABDOMEN: Soft, non tender and non distended. No rebound or guarding, and no masses palpated. Bowel Sounds normal. MUSCULOSKELETAL: Good range of motion of all major joints. Extremities without clubbing, cyanosis or edema. NEUROLOGIC EXAM: Alert and oriented in person PSYCHIATRIC: Stable mood SKIN: No obvious lesions - Constitutional Vitals: Temp Pulse Resp BP Pulse Ox 98.9 F 64 20 128/43 98 06/02/20 09:59 06/02/20 09:59 06/02/20 09:59 06/02/20 09:59 06/02/20 09:59 Results - Labs CBC & Chem 7: 05/30/20 04:36 05/30/20 04:36 Labs: Laboratory Last Values WBC 5.2 K/mm3 (4.5-11.0) 05/30/20 04:36 RBC 2.81 M/mm3 (3.65-5.03) L 05/30/20 04:36 Hgb 9.4 gm/dl (11.8-15.2) L 05/30/20 04:36 Hct 27.0 % (35.5-45.6) L 05/30/20 04:36 MCV 96 fl (84-94) H 05/30/20 04:36 MCH 33 pg (28-32) H 05/30/20 04:36 MCHC 35 % (32-34) H 05/30/20 04:36 RDW 13.0 % (13.2-15.2) L 05/30/20 04:36 Plt Count 166 K/mm3 (140-440) 05/30/20 04:36 Lymph % (Auto) 18.6 % (13.4-35.0) 05/30/20 04:36 [place] % (Auto) 9.2 % (0.0-7.3) H 05/30/20 04:36 Eos % (Auto) 4.8 % (0.0-4.3) H 05/30/20 04:36 Baso % (Auto) 0.5 % (0.0-1.8) 05/30/20 04:36 Lymph # (Auto) 1.0 K/mm3 (1.2-5.4) L 05/30/20 04:36 [place] # (Auto) 0.5 K/mm3 (0.0-0.8) 05/30/20 04:36 Eos # (Auto) 0.3 K/mm3 (0.0-0.4) 05/30/20 04:36 Baso # (Auto) 0.0 K/mm3 (0.0-0.1) 05/30/20 04:36 Seg Neutrophils % 66.9 % (40.0-70.0) 05/30/20 04:36 Seg Neutrophils # 3.5 K/mm3 (1.8-7.7) 05/30/20 04:36 PT 14.2 Sec. (12.2-14.9) 05/21/20 04:14 INR 1.11 (0.87-1.13) 05/21/20 04:14 APTT 33.8 Sec. (24.2-36.6) 05/21/20 04:14 Sodium 140 mmol/L (137-145) 05/30/20 04:36 Potassium 3.9 mmol/L (3.6-5.0) 05/30/20 04:36 Chloride 106.7 mmol/L (98-107) 05/30/20 04:36 Carbon Dioxide 27 mmol/L (22-30) 05/30/20 04:36 Anion Gap 10 mmol/L 05/30/20 04:36 BUN 13 mg/dL (9-20) 05/30/20 04:36 Creatinine 0.9 mg/dL (0.8-1.3) 05/30/20 04:36 Estimated GFR > 60 ml/min 05/30/20 04:36 BUN/Creatinine Ratio 14 % 05/30/20 04:36 Glucose 106 mg/dL (75-100) H 05/30/20 04:36 Hemoglobin A1c 4.6 % (4-6) 05/17/20 16:19 Calcium 8.6 mg/dL (8.4-10.2) 05/30/20 04:36 Total Bilirubin 0.40 mg/dL (0.1-1.2) 05/20/20 03:38 AST 85 units/L (5-40) H 05/20/20 03:38 ALT 26 units/L (7-56) 05/20/20 03:38 Alkaline Phosphatase 95 units/L (35-129) 05/20/20 03:38 Ammonia 50.0 umol/L (25-60) 05/24/20 10:59 Total Protein 6.7 g/dL (6.3-8.2) 05/20/20 03:38 Albumin 3.6 g/dL (3.9-5) L 05/20/20 03:38 Albumin/Globulin Ratio 1.2 % 05/20/20 03:38 Vitamin B12 331.4 pg/mL (211-911) 05/19/20 12:27 Folate 12.77 ng/mL (7.3-26.0) 05/19/20 12:27 Procalcitonin < 0.05 ng/mL (<0.15) 05/18/20 08:00 TSH 1.530 mlU/mL (0.270-4.200) 05/19/20 12:27 Urine Color Yellow (Yellow) 05/18/20 Unknown Urine Turbidity Clear (Clear) 05/18/20 Unknown Urine pH 5.0 (5.0-7.0) 05/18/20 Unknown Ur Specific [place] 1.014 (1.003-1.030) 05/18/20 Unknown Urine Protein <15 mg/dl mg/dL (Negative) 05/18/20 Unknown Urine Glucose (UA) Neg mg/dL (Negative) 05/18/20 Unknown Urine Ketones Neg mg/dL (Negative) 05/18/20 Unknown Urine Blood Neg (Negative) 05/18/20 Unknown Urine Nitrite Neg (Negative) 05/18/20 Unknown Urine Bilirubin Neg (Negative) 05/18/20 Unknown Urine Urobilinogen < 2.0 mg/dL (<2.0) 05/18/20 Unknown Ur Leukocyte Esterase Neg (Negative) 05/18/20 Unknown Urine WBC (Auto) 1.0 /HPF (0.0-6.0) 05/18/20 Unknown Urine RBC (Auto) < 1.0 /HPF (0.0-6.0) 05/18/20 Unknown U Epithel Cells (Auto) < 1.0 /HPF (0-13.0) 05/18/20 Unknown Urine Mucus Few /HPF 05/18/20 Unknown Coronavirus (PCR) Negative (Negative) 05/18/20 11:00 Patel/IV: Voiding Method Incontinent IV Catheter Type [Left Hand] Peripheral IV IV Catheter Type [Left Upper Peripheral IV arm] IV Catheter Type [Left Forearm Peripheral IV ] IV Catheter Type [Right Wrist] Peripheral IV IV Catheter Type [Right Peripheral IV Forearm] Active Medications - Current Medications Current Medications: Generic Name Dose Route Start Last Admin Trade Name Freq PRN Reason Stop Dose Admin Acetaminophen 650 mg 05/17/20 22:34 Tylenol PO Q4H PRN Pain MILD(1-3)/Fever >100.5/MONTALVO Aspirin 81 mg 05/20/20 10:00 06/02/20 09:54 Halfprin Ec PO 81 mg QDAY WYATT Administration Buspirone HCl 10 mg 05/19/20 22:00 06/02/20 09:54 Buspar PO 10 mg BID WYATT Administration Citalopram Hydrobromide 5 mg 05/20/20 10:00 06/02/20 09:54 Celexa PO 5 mg QDAY WYATT Administration Donepezil HCl 10 mg 05/19/20 22:00 06/01/20 21:00 Aricept PO 10 mg QHS WYATT Administration Enoxaparin Sodium 40 mg 05/20/20 12:00 06/02/20 09:54 Enoxaparin SUB-Q 40 mg QDAY@1000 WYATT Administration Famotidine 10 mg 05/17/20 23:00 06/02/20 09:54 Pepcid PO 10 mg BID WYATT Administration Dextrose/Sodium Chloride 1,000 mls @ 125 mls/hr 05/18/20 07:35 06/02/20 09:52 D5/0.45ns IV 125 mls/hr DIRECT WYATT Administration Melatonin 5 mg 05/19/20 18:28 06/02/20 02:43 Melatonin PO 5 mg QHS PRN Administration Sleep Metoclopramide HCl 5 mg 05/17/20 22:45 05/21/20 10:15 Reglan IV 5 mg Q6H PRN Administration Nausea And Vomiting Metoprolol Tartrate 25 mg 05/19/20 22:00 06/02/20 09:54 Metoprolol PO 25 mg BID WYATT Administration Morphine Sulfate 2 mg 05/17/20 22:34 Morphine IV Q4H PRN Pain, Moderate (4-6) Ondansetron HCl 4 mg 05/17/20 22:34 05/21/20 05:20 Zofran IV 4 mg Q8H PRN Administration Nausea And Vomiting Risperidone 0.25 mg 05/20/20 22:00 06/02/20 09:54 Risperdal PO 0.25 mg BID WYATT Administration Sodium Chloride 10 ml 05/18/20 10:00 06/02/20 09:55 Sodium Chloride Flush Syringe 10 Ml IV Not Given BID WYATT Sodium Chloride 10 ml 05/17/20 22:34 05/31/20 22:10 Sodium Chloride Flush Syringe 10 Ml IV 10 ml PRN PRN Administration LINE FLUSH Nutrition/Malnutrition Assess - Dietary Evaluation Nutrition/Malnutrition Findings: Nutrition Notes Start: 05/25/20 12:10 Freq: Status: Active Protocol: Document 05/31/20 12:07 AT (Rec: 05/31/20 12:20 AT [id number]) Co-Sign 05/31/20 12:07 MK Nutrition Notes Initial or Follow up Reassessment Current Diagnosis Acute Kidney Injury, Hypertension,Stroke Other Pertinent Diagnosis dementia, encephalopathy Current Diet Mechanical soft-Cardiac Labs/Tests K 3.9 (WNL) Pertinent Medications D5NS at 125 ml/hr Height 5 ft 4 in Weight 77.9 kg [place] Body Weight (kg) 59.09 BMI 29.5 Weight change and time frame Weight change noted. Weight Status Overweight Subjective/Other Information Pt has dementia. Per RN, pt ate 75% of breakfast meal. ONS not d/c. Per chart and per today's intake, pt is consuming around 60% of meals overall. Percent of energy/protein needs met: 71%/75% Burn Absent Trauma Absent Difficulty In Chewing Minimum of two criteria No physical signs of malnutrition #1 Nutrition Diagnosis Inadequate oral intake As Evidenced by Signs and Symptoms pt consuming 71% of energy needs and 75% of protein needs . Diagnosis Progress(for reassessment Improved documentation) Is patient on ventilator? No Is Patient Ambulatory and/or Out of Bed No REE-([facility]-confined to bed) [phone] Calculation Used for Recommendations [facility] Additional Notes PRO needs: 62-93g (0.8-1.2 g/ kg) Fluid needs: 1 mL/kcal Nutrition Intervention Change Diet Order: Continue Cardiac Mechanical Add Supplement/Snack (indicate name/kcal D/C /protein ) Goal #1 Meet at least 75% of estimated energy and protein needs Anticipated Discharge Needs: Mechanical Soft-Cardiac diet Follow-Up By: 06/05/20 Additional Comments F/U for PO intakes
[2020-06-02] MEDS: DONEPEZIL 10 MG TAB PO SCH (23:35)
[2020-06-03] MEDS: D5W/0.45% NACL 1,000 ML IV SCH (03:59)
[2020-06-03] MEDS: ASPIRIN EC 81 MG TAB PO SCH (09:57)
[2020-06-03] MEDS: METOPROLOL TARTRATE 25 MG TAB PO SCH (09:57)
[2020-06-03] MEDS: FAMOTIDINE 10 MG TAB PO SCH ×2 (09:57→21:08)
[2020-06-03] MEDS: risperiDONE 0.25 MG TAB PO SCH ×2 (09:58→21:08)
[2020-06-03] MEDS: CITALOPRAM 10 MG TAB PO SCH (09:58)
[2020-06-03] MEDS: busPIRone 10 MG TAB PO SCH ×2 (09:58→21:07)
[2020-06-03] MEDS: ENOXAPARIN 40 MG/0.4 ML INJ SUB-Q SCH (09:58)
--- NOTE | 2020-06-03 14:11 | Progress Note ---
Assessment and Plan Assessment and plan: (1) Acute metabolic encephalopathy Current Visit: Yes Status: Acute Plan to address problem: CT head - negative COVID-19 - negative MRI brain negative for stroke EEG is pending. Neuro res appreciated (2) Hyperkalemia Current Visit: Yes Status: Acute Plan to address problem: Resolved (3) YANET (acute kidney injury) Current Visit: Yes Status: Acute Plan to address problem: Improved (4) Debility, unspecified Current Visit: Yes Status: Acute Plan to address problem: PT/OT pending (5) Dementia with behavioral disturbance Current Visit: Yes Status: Acute Plan to address problem: Risperidone twice daily Psychiatry following (5) DVT prophylaxis Current Visit: Yes Status: Acute Plan to address problem: On heparin and GI prophylaxis 05/19. Patient is still on IV antibiotics. He is alert and oriented x1. He is able to say time by looking at the clock however. Discussed case with [facility], who states that patient usually is able to have a normal conversation and is alert and oriented x2. Medication reviewed showed patient is not on any narcotics while in the [facility]. He has not had any temperature spike here. COVID-19 test performed was negative during this admission. His vital signs remained stable. Try to speak with brother on the phone but could not get him so I left a voice message. Still awaiting callback. 05/20. Spoke with RN at the nursing facility who states that patient usually alert and oriented x2 and is able to take a shower and have quite a normal conversation. He occasionally tells time when he looks at the clock. Patient has slight spike in temperature more than 100.1 Fahrenheit. Urinalysis showed no organisms. Procalcitonin was also negative. At this time I do not suspect a bacterial infection so will discontinue IV antibiotics. COVID-19 test already negative. Need to rule out viral illness at this time. Patient needs an LP- ordered LP and CSF analysis. Neurology to review as patient will need an MRI of the brain. His TSH, folate and vitamin B12 levels are all within normal limits. 05/21. He is awake, alert and oriented x1. Plan for LP today. Neurology to see. 05/22. F/U EEG for subclinical sz. Check MRI brain per Neuro 05/23/2020. Patient remains encephalopathic. Await follow-up EEG and MRI brain per neurology recommendations. 05/24/2020. Nursing reports difficulty obtaining consent for EEG and MRI. Check ammonia level. Neurology following. 05/25/2020. Nursing still reports difficulty obtaining consent for EEG, LP and MRI. Check with hospital administration with regards for two physicians signature for consent. Ammonia level within normal limits. Continue restraints for safety 05/26/2020. Consents have been obtained. Await EEG, LP and MRI. Continue restraints for safety. 05/27/2020. Await EEG, LP and MRI. Neurology following. Continue restraints for safety. 05/28/2020. Patient remains confused/encephalopathic. Await EEG, LP and MRI. Neurology following. Continue restraints for safety. 05/29-. Awaiting studies to evaluate his confusion. 05/31. MRI brain shows no ischemia. EEG is pending. I doubt patient has ongoing infection. He has not had any spike in temperature. Neurology to evaluate after full report of work up is available 06/01. EEG still pending. Patient will be discharged once EEG is negative. 06/02. As per unit. EEG reportedly performed but no report yet. 06/03. Awaiting EEG reports. This could be his new baseline. COVID 19 test negative. DC tomorrow to follow up with neurology History Interval history: 80-year-old male with a medical history of dementia admitted with altered mental status. As per admission notes, patient was noted to be acting differently compared with baseline while in the [facility]. No reported fever or flulike illness. Due to concern for possible infection, patient was brought to the hospital for further evaluation Work-up for confusion negative so far. MRI brain showed no stroke Awaiting EEG Hospitalist Physical - Physical exam Narrative exam: VITAL SIGNS: Reviewed. GENERAL: Awake HEAD: No signs of head trauma. EYES: Pupils are equal. Extraocular motions intact. EARS: Hearing grossly intact. MOUTH: Oropharynx is normal. NECK: No adenopathy, no JVD. CHEST: Chest with diminished breath sounds bilaterally. No wheezes, rales, or rhonchi. CARDIAC: Regular rate and rhythm. S1 and S2, without murmurs, gallops, or rubs. VASCULAR: No Edema. Peripheral pulses normal and equal in all extremities. ABDOMEN: Soft, non tender and non distended. No rebound or guarding, and no masses palpated. Bowel Sounds normal. MUSCULOSKELETAL: Good range of motion of all major joints. Extremities without clubbing, cyanosis or edema. NEUROLOGIC EXAM: Alert and oriented in person PSYCHIATRIC: Stable mood SKIN: No obvious lesions - Constitutional Vitals: Temp Pulse Resp BP Pulse Ox 98.2 F 45 L 18 126/45 100 06/03/20 11:45 06/03/20 11:45 06/03/20 11:45 06/03/20 12:54 06/03/20 11:45 Results - Labs CBC & Chem 7: 05/30/20 04:36 05/30/20 04:36 Labs: Laboratory Last Values WBC 5.2 K/mm3 (4.5-11.0) 05/30/20 04:36 RBC 2.81 M/mm3 (3.65-5.03) L 05/30/20 04:36 Hgb 9.4 gm/dl (11.8-15.2) L 05/30/20 04:36 Hct 27.0 % (35.5-45.6) L 05/30/20 04:36 MCV 96 fl (84-94) H 05/30/20 04:36 MCH 33 pg (28-32) H 05/30/20 04:36 MCHC 35 % (32-34) H 05/30/20 04:36 RDW 13.0 % (13.2-15.2) L 05/30/20 04:36 Plt Count 166 K/mm3 (140-440) 05/30/20 04:36 Lymph % (Auto) 18.6 % (13.4-35.0) 05/30/20 04:36 [place] % (Auto) 9.2 % (0.0-7.3) H 05/30/20 04:36 Eos % (Auto) 4.8 % (0.0-4.3) H 05/30/20 04:36 Baso % (Auto) 0.5 % (0.0-1.8) 05/30/20 04:36 Lymph # (Auto) 1.0 K/mm3 (1.2-5.4) L 05/30/20 04:36 [place] # (Auto) 0.5 K/mm3 (0.0-0.8) 05/30/20 04:36 Eos # (Auto) 0.3 K/mm3 (0.0-0.4) 05/30/20 04:36 Baso # (Auto) 0.0 K/mm3 (0.0-0.1) 05/30/20 04:36 Seg Neutrophils % 66.9 % (40.0-70.0) 05/30/20 04:36 Seg Neutrophils # 3.5 K/mm3 (1.8-7.7) 05/30/20 04:36 PT 14.2 Sec. (12.2-14.9) 05/21/20 04:14 INR 1.11 (0.87-1.13) 05/21/20 04:14 APTT 33.8 Sec. (24.2-36.6) 05/21/20 04:14 Sodium 140 mmol/L (137-145) 05/30/20 04:36 Potassium 3.9 mmol/L (3.6-5.0) 05/30/20 04:36 Chloride 106.7 mmol/L (98-107) 05/30/20 04:36 Carbon Dioxide 27 mmol/L (22-30) 05/30/20 04:36 Anion Gap 10 mmol/L 05/30/20 04:36 BUN 13 mg/dL (9-20) 05/30/20 04:36 Creatinine 0.9 mg/dL (0.8-1.3) 05/30/20 04:36 Estimated GFR > 60 ml/min 05/30/20 04:36 BUN/Creatinine Ratio 14 % 05/30/20 04:36 Glucose 106 mg/dL (75-100) H 05/30/20 04:36 Hemoglobin A1c 4.6 % (4-6) 05/17/20 16:19 Calcium 8.6 mg/dL (8.4-10.2) 05/30/20 04:36 Total Bilirubin 0.40 mg/dL (0.1-1.2) 05/20/20 03:38 AST 85 units/L (5-40) H 05/20/20 03:38 ALT 26 units/L (7-56) 05/20/20 03:38 Alkaline Phosphatase 95 units/L (35-129) 05/20/20 03:38 Ammonia 50.0 umol/L (25-60) 05/24/20 10:59 Total Protein 6.7 g/dL (6.3-8.2) 05/20/20 03:38 Albumin 3.6 g/dL (3.9-5) L 05/20/20 03:38 Albumin/Globulin Ratio 1.2 % 05/20/20 03:38 Vitamin B12 331.4 pg/mL (211-911) 05/19/20 12:27 Folate 12.77 ng/mL (7.3-26.0) 05/19/20 12:27 Procalcitonin < 0.05 ng/mL (<0.15) 05/18/20 08:00 TSH 1.530 mlU/mL (0.270-4.200) 05/19/20 12:27 Urine Color Yellow (Yellow) 05/18/20 Unknown Urine Turbidity Clear (Clear) 05/18/20 Unknown Urine pH 5.0 (5.0-7.0) 05/18/20 Unknown Ur Specific [place] 1.014 (1.003-1.030) 05/18/20 Unknown Urine Protein <15 mg/dl mg/dL (Negative) 05/18/20 Unknown Urine Glucose (UA) Neg mg/dL (Negative) 05/18/20 Unknown Urine Ketones Neg mg/dL (Negative) 05/18/20 Unknown Urine Blood Neg (Negative) 05/18/20 Unknown Urine Nitrite Neg (Negative) 05/18/20 Unknown Urine Bilirubin Neg (Negative) 05/18/20 Unknown Urine Urobilinogen < 2.0 mg/dL (<2.0) 05/18/20 Unknown Ur Leukocyte Esterase Neg (Negative) 05/18/20 Unknown Urine WBC (Auto) 1.0 /HPF (0.0-6.0) 05/18/20 Unknown Urine RBC (Auto) < 1.0 /HPF (0.0-6.0) 05/18/20 Unknown U Epithel Cells (Auto) < 1.0 /HPF (0-13.0) 05/18/20 Unknown Urine Mucus Few /HPF 05/18/20 Unknown Coronavirus (PCR) Negative (Negative) 06/02/20 11:00 Patel/IV: Voiding Method Condom Catheter IV Catheter Type [Antecubital] INT / [place]ine Lock IV Catheter Type [Left Hand] Peripheral IV IV Catheter Type [Left Upper Peripheral IV arm] IV Catheter Type [Left Forearm Peripheral IV ] IV Catheter Type [Right Wrist] Peripheral IV IV Catheter Type [Right Peripheral IV Forearm] Active Medications - Current Medications Current Medications: Generic Name Dose Route Start Last Admin Trade Name Freq PRN Reason Stop Dose Admin Acetaminophen 650 mg 05/17/20 22:34 Tylenol PO Q4H PRN Pain MILD(1-3)/Fever >100.5/MONTALVO Aspirin 81 mg 05/20/20 10:00 06/03/20 09:57 Halfprin Ec PO 81 mg QDAY WYATT Administration Buspirone HCl 10 mg 05/19/20 22:00 06/03/20 09:58 Buspar PO 10 mg BID WYATT Administration Citalopram Hydrobromide 5 mg 05/20/20 10:00 06/03/20 09:58 Celexa PO 5 mg QDAY WYATT Administration Donepezil HCl 10 mg 05/19/20 22:00 06/02/20 23:35 Aricept PO 10 mg QHS WYATT Administration Enoxaparin Sodium 40 mg 05/20/20 12:00 06/03/20 09:58 Enoxaparin SUB-Q 40 mg QDAY@1000 WYATT Administration Famotidine 10 mg 05/17/20 23:00 06/03/20 09:57 Pepcid PO 10 mg BID WYATT Administration Dextrose/Sodium Chloride 1,000 mls @ 125 mls/hr 05/18/20 07:35 06/03/20 03:59 D5/0.45ns IV 125 mls/hr DIRECT WYATT Administration Melatonin 5 mg 05/19/20 18:28 06/02/20 02:43 Melatonin PO 5 mg QHS PRN Administration Sleep Metoclopramide HCl 5 mg 05/17/20 22:45 05/21/20 10:15 Reglan IV 5 mg Q6H PRN Administration Nausea And Vomiting Morphine Sulfate 2 mg 05/17/20 22:34 Morphine IV Q4H PRN Pain, Moderate (4-6) Ondansetron HCl 4 mg 05/17/20 22:34 05/21/20 05:20 Zofran IV 4 mg Q8H PRN Administration Nausea And Vomiting Risperidone 0.25 mg 05/20/20 22:00 06/03/20 09:58 Risperdal PO 0.25 mg BID WYATT Administration Sodium Chloride 10 ml 05/18/20 10:00 06/03/20 09:58 Sodium Chloride Flush Syringe 10 Ml IV 10 ml BID WYATT Administration Sodium Chloride 10 ml 05/17/20 22:34 05/31/20 22:10 Sodium Chloride Flush Syringe 10 Ml IV 10 ml PRN PRN Administration LINE FLUSH Nutrition/Malnutrition Assess - Dietary Evaluation Nutrition/Malnutrition Findings: Nutrition Notes Start: 05/25/20 12:10 Freq: Status: Active Protocol: Document 05/31/20 12:07 AT (Rec: 05/31/20 12:20 AT [id number]) Co-Sign 05/31/20 12:07 MK Nutrition Notes Initial or Follow up Reassessment Current Diagnosis Acute Kidney Injury, Hypertension,Stroke Other Pertinent Diagnosis dementia, encephalopathy Current Diet Mechanical soft-Cardiac Labs/Tests K 3.9 (WNL) Pertinent Medications D5NS at 125 ml/hr Height 5 ft 4 in Weight 77.9 kg [place] Body Weight (kg) 59.09 BMI 29.5 Weight change and time frame Weight change noted. Weight Status Overweight Subjective/Other Information Pt has dementia. Per RN, pt ate 75% of breakfast meal. ONS not d/c. Per chart and per today's intake, pt is consuming around 60% of meals overall. Percent of energy/protein needs met: 71%/75% Burn Absent Trauma Absent Difficulty In Chewing Minimum of two criteria No physical signs of malnutrition #1 Nutrition Diagnosis Inadequate oral intake As Evidenced by Signs and Symptoms pt consuming 71% of energy needs and 75% of protein needs . Diagnosis Progress(for reassessment Improved documentation) Is patient on ventilator? No Is Patient Ambulatory and/or Out of Bed No REE-([facility]-confined to bed) 7943.130 Calculation Used for Recommendations [facility] Additional Notes PRO needs: 62-93g (0.8-1.2 g/ kg) Fluid needs: 1 mL/kcal Nutrition Intervention Change Diet Order: Continue Cardiac Mechanical Add Supplement/Snack (indicate name/kcal D/C /protein ) Goal #1 Meet at least 75% of estimated energy and protein needs Anticipated Discharge Needs: Mechanical Soft-Cardiac diet Follow-Up By: 06/05/20 Additional Comments F/U for PO intakes
[2020-06-03] MEDS: DONEPEZIL 10 MG TAB PO SCH (21:07)
[2020-06-03] MEDS: MELATONIN 5 MG TAB PO PRN (23:27)
[2020-06-04 04:12] VITALS: BP 124/45
[2020-06-04] MEDS: D5W/0.45% NACL 1,000 ML IV SCH (06:18)
--- NOTE | 2020-06-04 11:19 | Discharge Summary ---
Providers - Providers Date of Admission: 05/18/20 11:43 Date of discharge: 06/04/20 Attending physician: LEIGH RODRIGUEZ 05/19/20 18:31 psychiatry consult [Consult to Mental Health] [CONS] Routine Reason For Exam: Agitation 05/20/20 07:28 Consult to Physician [CONS] Routine Comment: Consulting Provider: ZULEMA WEBB Physician Instructions: Reason For Exam: Altered mental status 05/30/20 10:22 Physical Therapy Evaluation and Treat [CONS] Routine Comment: Reason For Exam: Debility Primary care physician: ALBERTINA LEMA Hospitalization Condition: Stable Hospital course: 50-year-old male sent from [facility] for altered mental status. Patient had no fever at the time of admission. Patient is normally alert and oriented. Now confused. No shortness of breath present. Had a recent stroke. In the ED, he was started on IV antibiotics for possible UTI. 05/19. Patient is still on IV antibiotics. He is alert and oriented x1. He is able to say time by looking at the clock however. Discussed case with patient's RN at the [facility], who states that patient usually is able to have a normal conversation and is alert and oriented x2. Medication reviewed showed patient is not on any narcotics while in the fdc. He has not had any temperature spike here. COVID-19 test performed was negative during this admission. His vital signs remained stable. Try to speak with brother on the phone but could not get him so I left a voice message. Still awaiting callback. 05/20. Spoke with RN at the nursing facility who states that patient usually alert and oriented x2 and is able to take a shower and have quite a normal conversation. He occasionally tells time when he looks at the clock. Patient has slight spike in temperature more than 100.1 Fahrenheit. Urinalysis showed no organisms. Procalcitonin was also negative. At this time I do not suspect a bacterial infection so will discontinue IV antibiotics. COVID-19 test already negative. Need to rule out viral illness at this time. Patient needs an LP- ordered LP and CSF analysis. Neurology to review as patient will need an MRI of the brain. His TSH, folate and vitamin B12 levels are all within normal limits. 05/21. He is awake, alert and oriented x1. Plan for LP today. Neurology to see. 05/22. F/U EEG for subclinical sz. Check MRI brain per Neuro 05/23/2020. Patient remains encephalopathic. Await follow-up EEG and MRI brain per neurology recommendations. 05/24/2020. Nursing reports difficulty obtaining consent for EEG and MRI. Check ammonia level. Neurology following. 05/25/2020. Nursing still reports difficulty obtaining consent for EEG, LP and MRI. Check with hospital administration with regards for two physicians signature for consent. Ammonia level within normal limits. Continue restraints for safety 05/26/2020. Consents have been obtained. Await EEG, LP and MRI. Continue re straints for safety. 05/27/2020. Await EEG, LP and MRI. Neurology following. Continue restraints for safety. 05/28/2020. Patient remains confused/encephalopathic. Await EEG, LP and MRI. Neurology following. Continue restraints for safety. 05/29-. Awaiting studies to evaluate his confusion. Family refused LP. LP cancelled. 05/31. MRI brain shows no ischemia. EEG is pending. I doubt patient has ongoing infection. He has not had any spike in temperature. Neurology to evaluate after full report of work up is available 06/01. EEG still pending. Patient will be discharged once EEG is negative. 06/02. As per unit. EEG reportedly performed but no report yet. Remains afebrile. COVID-19 test is negative 06/04. EEG shows changes consistent with dementia vs acute metabolic encephalopathy.No seizures has been noted since admission. DC tomorrow to follow up with neurology. This could be his new baseline. Disposition: DC/TX-03 SNF [facility] - Discharge Diagnoses (1) YANET (acute kidney injury) Status: Acute (2) Acute encephalopathy Status: Acute (3) Alzheimer's dementia with behavioral disturbance Status: Acute Core Measure Documentation - Palliative Care Palliative Care/ Comfort Measures: Not Applicable - Core Measures Any of the following diagnoses?: none Exam - Physical Exam Narrative exam: VITAL SIGNS: Reviewed. GENERAL: Awake HEAD: No signs of head trauma. EYES: Pupils are equal. Extraocular motions intact. EARS: Hearing grossly intact. MOUTH: Oropharynx is normal. NECK: No adenopathy, no JVD. CHEST: Chest with diminished breath sounds bilaterally. No wheezes, rales, or rhonchi. CARDIAC: Regular rate and rhythm. S1 and S2, without murmurs, gallops, or rubs. VASCULAR: No Edema. Peripheral pulses normal and equal in all extremities. ABDOMEN: Soft, non tender and non distended. No rebound or guarding, and no masses palpated. Bowel Sounds normal. MUSCULOSKELETAL: Good range of motion of all major joints. Extremities without clubbing, cyanosis or edema. NEUROLOGIC EXAM: Alert and oriented in person PSYCHIATRIC: Stable mood SKIN: No obvious lesions - Constitutional Vitals: Temp Pulse Resp BP Pulse Ox 98.0 F 68 18 124/45 100 06/04/20 03:41 06/04/20 03:41 06/04/20 03:41 06/04/20 03:41 06/04/20 03:41 Plan Activity: no restrictions Diet: low fat, low cholesterol, low salt Additional Instructions: Follow up with neurology in the office for management of dementia. Continue current medications Follow up with: ALBERTINA LEMA MD [Primary Care Provider] - 7 Days ABRAM BOWMAN MD [Staff Physician] - 7 Days Prescriptions: donepeziL [Aricept] 10 mg PO QHS 30 Days tablet Melatonin [Melatonin 5MG TAB] 5 mg PO QHS PRN 30 Days tablet PRN Reason: Sleep busPIRone [Buspar] 10 mg PO BID 30 Days tablet Citalopram [celeXA] 5 mg PO QDAY 30 Days tablet Aspirin EC [Halfprin EC] 81 mg PO QDAY 30 Days tablet risperiDONE [RisperDAL] 0.25 mg PO BID 30 Days tablet
[2020-06-04] MEDS: FAMOTIDINE 10 MG TAB PO SCH (12:08)
[2020-06-04] MEDS: CITALOPRAM 10 MG TAB PO SCH (12:08)
[2020-06-04] MEDS: ASPIRIN EC 81 MG TAB PO SCH (12:08)
[2020-06-04] MEDS: risperiDONE 0.25 MG TAB PO SCH (12:08)
[2020-06-04] MEDS: busPIRone 10 MG TAB PO SCH (12:09)
[2020-06-04] MEDS: ENOXAPARIN 40 MG/0.4 ML INJ SUB-Q SCH (12:09)
== END 2020-06-04 17:15 | DRG 70 ==
LOC: ED 16:08 → 3A 18:57 → OBSVTOIN 05-18 11:43
PROVIDERS: ADMIT Internal Medicine; ATTEND Internal Medicine
DX: G93.41 Metabolic encephalopathy (principal); N17.0 Acute kidney failure with tubular necrosis; N39.0 Urinary tract infection, site not specified; F02.81 Dementia in other diseases classified elsewhere, unspecified severity, with behavioral disturbance; E87.5 Hyperkalemia; G30.9 Alzheimer's disease, unspecified; Z86.73 Personal history of transient ischemic attack (TIA), and cerebral infarction without residual deficits; I10 Essential (primary) hypertension; K21.9 Gastro-esophageal reflux disease without esophagitis; Z82.49 Family history of ischemic heart disease and other diseases of the circulatory system; Z20.828 Contact with and (suspected) exposure to other viral communicable diseases
CPT/HCPCS: 36415; 70450; 70553; 71045; 80048; 80053; 81001; 82140; 82607; 82747; 83036; 84132; 84145; 84443; 85025; 85027; 85610; 85730; 87086; 93005; 95819; 96361; 96365; 96367; 96375; 96376; G0378; A9577; J0610; J0696; J1650; J1815; J2405; J2765; J7042; U0003

== ENCOUNTER 2020-10-18 21:16 | Emergency (ER) | payer MEDICARE ==
--- NOTE | 2020-10-18 22:38 | XRay Report ---
Pelvis-2 frontal views INDICATION: fall. COMPARISON: None. IMPRESSION: No acute osseous abnormality. Soft tissues are normal. Normal alignment. Mild degener ative changes in the hips and SI joints. Signer Name: Adalberto Reyna MD Signed: 10/18/2020 10:33 PM Workstation Name: [id number]
--- NOTE | 2020-10-18 22:41 | Cat Scan Report ---
. CT head/brain wo con INDICATION / CLINICAL INFORMATION: 80 years Male; Post-fall, No other history available.. TECHNIQUE: Routine CT head without contrast. All CT scans at this location are performed using CT dos e reduction for ALARA by means of automated exposure control. Motion artifact COMPARISON: 05/18/2020 FINDINGS: BRAIN / INTRACRANIAL CONTENTS: No acute hemorrhage, mass effect, midline shift, hydrocephalus, or acu te, large territorial infarct. Mild to moderate mucosal thickening in the ethmoids. There is partial opacification of the right fron radha sinus. cerebral and cerebellar atrophy. Mild to moderate There are areas of decreased attenuation in the white matter of the cerebral hemispheres. These are n onspecific findings and may be related to microangiopathy (hypertension, diabetes, atherosclerosis), given the patient's age. It might be difficult to evaluate for small areas of ischemia without diffus ion imaging by MRI. CRANIOCERVICAL JUNCTION: No significant abnormality. ORBITS: No significant abnormality of visualized orbits. SINUSES / MASTOIDS: Visualized paranasal sinuses and mastoid air cells are essentially clear. ADDITIONAL FINDINGS: Atherosclerotic disease is seen in the anterior and posterior circulation. IMPRESSION: 1. No focal mass, hemorrhage, hydrocephalus, or acute, large territorial infarct on this limited stud y. Signer Name: Ajay Chopra MD, III Signed: 10/18/2020 10:37 PM Workstation Name: [email or web address] PARK PSYCHIATRIC HOSPITALSteve
--- NOTE | 2020-10-18 22:55 | Emergency Department Report ---
ED Fall HPI - General Chief Complaint: Fall Stated Complaint: FALL Time Seen by Provider: 10/18/20 21:33 Source: EMS Mode of arrival: Stretcher - History of Present Illness Initial Comments: Patient is a 80-year-old F Sw[place] male who is presenting from a [facility] after fall. He was found in his room on the ground. Staff believes he may have hit his head although there is no obvious trauma. Patient does have a history of Alzheimer's and is a poor historian. Patient states he is not hurting. - Related Data Home Medications Medication Instructions Recorded Confirmed Last Taken Combigan 0.2%-0.5% Eye Drops 1 drop OU BID 05/19/20 05/19/20 Unknown Latanoprost 0.005% 1 drop OU QHS 05/19/20 05/19/20 Unknown Milk of Magnesia 30 ml PO DAILY PRN 05/19/20 05/19/20 Unknown Previous Rx's Medication Instructions Recorded Last Taken Type Aspirin EC [Halfprin EC] 81 mg PO QDAY 30 Days tablet 06/04/20 Unknown Rx Citalopram [celeXA] 5 mg PO QDAY 30 Days tablet 06/04/20 Unknown Rx Melatonin [Melatonin 5MG TAB] 5 mg PO QHS PRN 30 Days tablet 06/04/20 Unknown Rx busPIRone [Buspar] 10 mg PO BID 30 Days tablet 06/04/20 Unknown Rx donepeziL [Aricept] 10 mg PO QHS 30 Days tablet 06/04/20 Unknown Rx risperiDONE [RisperDAL] 0.25 mg PO BID 30 Days tablet 06/04/20 Unknown Rx Allergies Allergy/AdvReac Type Severity Reaction Status Date / Time No Known Allergies Allergy Verified 05/17/20 22:43 ED Review of Systems ROS: Stated complaint: FALL Other details as noted in HPI Comment: Unobtainable due to pts medical conditions ED Past Medical Hx - Past Medical History Previous Medical History?: Yes Hx Hypertension: Yes Hx CVA: Yes Hx Diabetes: No Hx GERD: Yes Hx of Cancer: Yes (colon) Hx Psychiatric Treatment: Yes (mood disorder) Hx COPD: No Hx Dementia: Yes Additional medical history: glaucoma, malignant neoplasm of colon, cataract, generalized muscle weakness, dorsalgia - Social History Smoking Status: Unknown if ever smoked Substance Use Type: None - Medications Home Medications: Home Medications Medication Instructions Recorded Confirmed Last Taken Type Combigan 0.2%-0.5% Eye Drops 1 drop OU BID 05/19/20 05/19/20 Unknown History Latanoprost 0.005% 1 drop OU QHS 05/19/20 05/19/20 Unknown History Milk of Magnesia 30 ml PO DAILY PRN 05/19/20 05/19/20 Unknown History Aspirin EC [Halfprin EC] 81 mg PO QDAY 30 Days tablet 06/04/20 Unknown Rx Citalopram [celeXA] 5 mg PO QDAY 30 Days tablet 06/04/20 Unknown Rx Melatonin [Melatonin 5MG TAB] 5 mg PO QHS PRN 30 Days tablet 06/04/20 Unknown Rx busPIRone [Buspar] 10 mg PO BID 30 Days tablet 06/04/20 Unknown Rx donepeziL [Aricept] 10 mg PO QHS 30 Days tablet 06/04/20 Unknown Rx risperiDONE [RisperDAL] 0.25 mg PO BID 30 Days tablet 06/04/20 Unknown Rx ED Physical Exam - General Limitations: No Limitations General appearance: alert, in no apparent distress - Head Head exam: Present: atraumatic, normocephalic - Eye Eye exam: Present: normal appearance - ENT ENT exam: Present: mucous membranes moist - Neck Neck exam: Present: normal inspection - Respiratory Respiratory exam: Present: normal lung sounds bilaterally. Absent: respiratory distress, wheezes, rales, rhonchi - Cardiovascular Cardiovascular Exam: Present: regular rate, normal rhythm. Absent: systolic murmur, diastolic murmur, rubs, gallop - GI/Abdominal GI/Abdominal exam: Present: soft, normal bowel sounds - Rectal Rectal exam: Present: deferred - Extremities Exam Extremities exam: Present: normal inspection, other (Patient showed some mild discomfort when lifting his left leg and flexing his hip. No pain with palpation.) - Back Exam Back exam: Present: normal inspection - Neurological Exam Neurological exam: Present: alert, oriented X3 - Psychiatric Psychiatric exam: Present: normal affect, normal mood - Skin Skin exam: Present: warm, dry, intact, normal color. Absent: rash ED Course Vital Signs 10/18/20 10/18/20 10/18/20 21:25 21:32 21:33 Temperature 97.7 F Pulse Rate 58 L Respiratory 9 L 10 L Rate Blood Pressure 100/48 O2 Sat by Pulse 100 100 Oximetry 10/18/20 10/18/20 10/18/20 21:34 21:35 21:37 Temperature Pulse Rate 57 L 55 L 59 L Respiratory 10 L 10 L 9 L Rate Blood Pressure 100/48 100/48 100/48 O2 Sat by Pulse 98 100 100 Oximetry 10/18/20 10/18/20 10/18/20 21:39 21:45 22:01 Temperature Pulse Rate 60 51 L 50 L Respiratory 9 L 9 L 9 L Rate Blood Pressure 100/48 100/48 116/56 O2 Sat by Pulse 100 100 100 Oximetry 10/18/20 22:33 Temperature Pulse Rate 50 L Respiratory 10 L Rate Blood Pressure 106/48 O2 Sat by Pulse Oximetry ED Medical Decision Making - Radiology Data [facility] [address] [place] [address] Cat Scan Report Signed Patient: LEO MARRERO MR#: [id number] : 1940 Acct:[id number] Age/Sex: 80 / M ADM Date: 10/18/20 Loc: ED Attending Dr: Ordering Physician: OWEN POWELL MD Date of Service: 10/18/20 Procedure(s): CT head/brain wo con Accession Number(s): [id number] cc: OWEN POWELL MD . CT head/brain wo con INDICATION / CLINICAL INFORMATION: 80 years Male; Post-fall, No other history available.. TECHNIQUE: Routine CT head without contrast. All CT scans at this location are performed using CT dose reduction for ALARA by means of automated exposure control. Motion artifact COMPARISON: 05/18/2020 FINDINGS: BRAIN / INTRACRANIAL CONTENTS: No acute hemorrhage, mass effect, midline shift, hydrocephalus, or acute, large territorial infarct. Mild to moderate mucosal thickening in the ethmoids. There is partial opacification of the right frontal sinus. cerebral and cerebellar atrophy. Mild to moderate There are areas of decreased attenuation in the white matter of the cerebral hemispheres. These are nonspecific findings and may be related to microangiopathy (hypertension, diabetes, atherosclerosis), given the patient's age. It might be difficult to evaluate for small areas of ischemia without diffusion imaging by MRI. CRANIOCERVICAL JUNCTION: No significant abnormality. ORBITS: No significant abnormality of visualized orbits. SINUSES / MASTOIDS: Visualized paranasal sinuses and mastoid air cells are essentially clear. ADDITIONAL FINDINGS: Atherosclerotic disease is seen in the anterior and posterior circulation. IMPRESSION: 1. No focal mass, hemorrhage, hydrocephalus, or acute, large territorial infarct on this limited study. Signer Name: Ajay Chopra MD, III Signed: 10/18/2020 10:37 PM Workstation Name: [email or web address] Pelvis wnl - Medical Decision Making Patient been medically cleared to return back to his [facility]. Critical care attestation.: If time is entered above; I have spent that time in minutes in the direct care of this critically ill patient, excluding procedure time. ED Disposition Clinical Impression: Fall, Closed head injury Disposition: DC-01 TO HOME OR SELFCARE Is pt being admited?: No Does the pt Need Aspirin: No Condition: Stable Time of Disposition: 22:54
[2020-10-19 01:19] VITALS: BP 115/43
== END 2020-10-19 01:19 | disposition home or self-care (01) ==
LOC: ED 21:16
DX: S09.90XA Unspecified injury of head, initial encounter (principal); I10 Essential (primary) hypertension; K21.9 Gastro-esophageal reflux disease without esophagitis; F03.90 Unspecified dementia, unspecified severity, without behavioral disturbance, psychotic disturbance, mood disturbance, and anxiety; Z79.899 Other long term (current) drug therapy; W19.XXXA Unspecified fall, initial encounter; Y93.89 Activity, other specified; Y92.89 Other specified places as the place of occurrence of the external cause; Y99.8 Other external cause status
CPT/HCPCS: 70450; 72170

== ENCOUNTER 2020-11-04 01:08 | Emergency (ER) | payer MEDICARE ==
--- NOTE | 2020-11-04 01:23 | Emergency Department Report ---
HPI - General Chief Complaint: Fall Time Seen by Provider: 11/04/20 01:13 - [facility] HPI: Room 1 The patient is a 80-year-old male present with a chief complaint of fall. Patient is resident at [facility] and reportedly fell from the floor next to his bed at 20: 30. Patient was awake at the time he was found there is uncertainty as if he lost consciousness. Patient has history of dementia. Patient denies complaints. ED Past Medical Hx - Past Medical History Previous Medical History?: Yes Hx Hypertension: Yes Hx CVA: Yes Hx GERD: Yes Hx Psychiatric Treatment: Yes (mood disorder) Hx Dementia: Yes Additional medical history: glaucoma, malignant neoplasm of colon, cataract, generalized muscle weakness, dorsalgia - Surgical History Past Surgical History?: No - Family History Family history: no significant - Social History Smoking Status: Unknown if ever smoked Substance Use Type: None - Medications Home Medications: Home Medications Medication Instructions Recorded Confirmed Last Taken Type Combigan 0.2%-0.5% Eye Drops 1 drop OU BID 05/19/20 05/19/20 Unknown History Latanoprost 0.005% 1 drop OU QHS 05/19/20 05/19/20 Unknown History Milk of Magnesia 30 ml PO DAILY PRN 05/19/20 05/19/20 Unknown History Aspirin EC [Halfprin EC] 81 mg PO QDAY 30 Days tablet 06/04/20 Unknown Rx Citalopram [celeXA] 5 mg PO QDAY 30 Days tablet 06/04/20 Unknown Rx Melatonin [Melatonin 5MG TAB] 5 mg PO QHS PRN 30 Days tablet 06/04/20 Unknown Rx busPIRone [Buspar] 10 mg PO BID 30 Days tablet 06/04/20 Unknown Rx donepeziL [Aricept] 10 mg PO QHS 30 Days tablet 06/04/20 Unknown Rx risperiDONE [RisperDAL] 0.25 mg PO BID 30 Days tablet 06/04/20 Unknown Rx ED Review of Systems ROS: Stated complaint: FALL Other details as noted in HPI Constitutional: no symptoms reported Eyes: denies: eye pain ENT: denies: throat pain Respiratory: no symptoms reported Cardiovascular: denies: chest pain Endocrine: no symptoms reported Gastrointestinal: denies: abdominal pain Genitourinary: denies: dysuria Musculoskeletal: denies: back pain Neurological: denies: headache Physical Exam - Physical Exam Physical Exam: GENERAL: The patient is well-developed well-nourished male lying on stretcher not appearing to be in acute distress. [] HEENT: Normocephalic. Atraumatic. Extraocular motions are intact. Patient has moist mucous membranes. NECK: Supple. No axial tenderness to palpation CHEST/LUNGS: Clear to auscultation. There is no respiratory distress noted. HEART/CARDIOVASCULAR: Regular. There is no tachycardia. There is no gallop rub or murmur. ABDOMEN: Abdomen is soft, nontender. Patient has normal bowel sounds. There is no abdominal distention. SKIN: There is no rash. There is no edema. There is no diaphoresis. NEURO: The patient is awake and alert. The patient is cooperative. MUSCULOSKELETAL: There is no tenderness to palpation of all extremities. There is no evidence of acute injury. ED Medical Decision Making - Radiology Data Radiology results: report reviewed (CT head, CT cervical spine), image reviewed (CT head, CT cervical spine) [facility] [address] [place] [address] Cat Scan Report Signed Patient: LEO MARRERO MR#: [id number] : 1940 Acct:[id number] Age/Sex: 80 / M ADM Date: 11/04/20 Loc: ED Attending Dr: Ordering Physician: NEREYDA HERNANDEZ MD Date of Service: 11/04/20 Procedure(s): CT head/brain wo con Accession Number(s): [id number] cc: NEREYDA HERNANDEZ MD CT head without contrast INDICATION : Fall. TECHNIQUE: Axial imaging performed from the skull apex through the skull base without the use of contrast. All CT scans at this location are performed using CT dose reduction for ALARA by means of automated exposure control. COMPARISON: None FINDINGS: Parenchyma: No mass, stroke or hemorrhage diffuse cerebral atrophy. Chronic small vessel ischemic change. Ventricles: Diffusely dilated on the basis of atrophy. Soft tissues: Soft tissues including the orbits appear normal. Bones: No acute osseous abnormality. Sinuses: Opacification right frontal sinus. IMPRESSION: 1. Chronic changes of atrophy and small vessel ischemia. 2. Chronic opacification right frontal sinus. Signer Name: Syed Vasquez MD Signed: 11/04/2020 2:41 AM Workstation Name: [id number] Transcribed By: KANDICE Dictated By: Syed Vasquez MD Electronically Authenticated By: Syed Vasquez MD Signed Date/Time: 11/04/20240 DD/ 7 TD/TT: Print Cancel [facility] [address] [place] [address] Cat Scan Report Signed Patient: LEO MARRERO MR#: [id number] : 1940 Acct:[id number] Age/Sex: 80 / M ADM Date: 11/04/20 Loc: ED Attending Dr: Ordering Physician: NEREYDA HERNANDEZ MD Date of Service: 11/04/20 Procedure(s): CT cervical spine wo con Accession Number(s): [id number] cc: NEREYDA HERNANDEZ MD CT cervical spine wo con INDICATION: Fall. TECHNIQUE: All CT scans at this location are performed using the following dose modulation technique: Automated exposure control. CONTRAST: None. COMPARISON: None available. FINDINGS: Satisfactory alignment without vertebral compression. Moderate DDD greatest at C3-C6. No soft tissue abnormality. Soft tissue thickening right sphenoid sinus. IMPRESSION: 1. No fracture. 2. Multilevel DDD. 3. Soft tissue thickening right sphenoid sinus. Signer Name: Syed Vasquez MD Signed: 11/04/2020 2:44 AM Workstation Name: [id number] Transcribed By: KANDICE Dictated By: Syed Vasquez MD Electronically Authenticated By: Syed Vasquez MD Signed Date/Time: 11/04/20243 DD/ 1 TD/TT: Print Cancel - Differential Diagnosis Close head injury, intracranial hemorrhage, cervical fracture Critical care attestation.: If time is entered above; I have spent that time in minutes in the direct care of this critically ill patient, excluding procedure time. ED Disposition Clinical Impression: Fall Disposition: DC/TX-70 ANOTHER TYPE [facility]TH[facility]ARE Is pt being admited?: No Does the pt Need Aspirin: No Condition: Stable Instructions: Fall Prevention in the Home, Adult, [id number] Additional Instructions: Return to the emergency department should you develop worsening symptoms, inability to tolerate food or liquids, high fever or any other concerns Referrals: PRIMARY CARE, [Referring] - 3-5 Days Time of Disposition: 03:27
--- NOTE | 2020-11-04 02:46 | Cat Scan Report ---
CT head without contrast INDICATION : Fall. TECHNIQUE: Axial imaging performed from the skull apex through the skull base without the use of con trast. All CT scans at this location are performed using CT dose reduction for ALARA by means of aut omated exposure control. COMPARISON: None FINDINGS: Parenchyma: No mass, stroke or hemorrhage diffuse cerebral atrophy. Chronic small vessel ischemic bonita nge. Ventricles: Diffusely dilated on the basis of atrophy. Soft tissues: Soft tissues including the orbits appear normal. Bones: No acute osseous abnormality. Sinuses: Opacification right frontal sinus. IMPRESSION: 1. Chronic changes of atrophy and small vessel ischemia. 2. Chronic opacification right frontal sinus. Signer Name: Syed Vasquez MD Signed: 11/04/2020 2:41 AM Workstation Name: [id number]
--- NOTE | 2020-11-04 02:48 | Cat Scan Report ---
CT cervical spine wo con INDICATION: Fall. TECHNIQUE: All CT scans at this location are performed using the following dose modulation technique: Automated exposure control. CONTRAST: None. COMPARISON: None available. FINDINGS: Satisfactory alignment without vertebral compression. Moderate DDD greatest at C3-C6. No soft tissue abnormality. Soft tissue thickening right sphenoid sinus. IMPRESSION: 1. No fracture. 2. Multilevel DDD. 3. Soft tissue thickening right sphenoid sinus. Signer Name: Syed Vasquez MD Signed: 11/04/2020 2:44 AM Workstation Name: [id number]
[2020-11-04 06:36] VITALS: BP 110/54
== END 2020-11-04 07:50 | disposition other institution (70) ==
LOC: ED 01:08
DX: R55 Syncope and collapse (principal); I10 Essential (primary) hypertension; K21.9 Gastro-esophageal reflux disease without esophagitis; F03.90 Unspecified dementia, unspecified severity, without behavioral disturbance, psychotic disturbance, mood disturbance, and anxiety; Z86.73 Personal history of transient ischemic attack (TIA), and cerebral infarction without residual deficits; W19.XXXA Unspecified fall, initial encounter; Y93.89 Activity, other specified; Y92.89 Other specified places as the place of occurrence of the external cause; Y99.8 Other external cause status
CPT/HCPCS: 70450; 72125